=== PATIENT | male | born 1930 | race Caucasian/White ===

== ENCOUNTER 2016-03-19 14:03 | Emergency (ER) | payer OTHER, MEDICARE ==
[2016-03-19 14:11] VITALS: BP 121/101; PULSE 56; RESP 18; TEMP 97.9; O2SAT 94
--- NOTE | 2016-03-19 14:54 | EDPHY ---
H & P Stated Complaint: Fell on buttocks yesterday in bathroom . Time Seen by Provider: 03/19/16 14:15 HPI/ROS: CHIEF COMPLAINT: Lumbar pain after mechanical fall HISTORY OF PRESENT ILLNESS: The patient presents to the ED with complaints of lower lumbar pain after a mechanical fall yesterday. The patient is not anticoagulated. The patient has had some hospitalizations in the past year for a small intracranial hemorrhage while on Plavix and a additional hospital visit for TIA. The patient also experienced a seizure this year and has been taking Depakote. The patient denies any complaints of acute chest pain, shortness of breath, acute headache, no acute numbness, acute weakness or additional complaints. He does have some chronic gait instability which has not worsened. The patient complains of moderate pain in his lower lumbar spine. REVIEW OF SYSTEMS: A comprehensive 10 point review of systems is otherwise negative aside from elements mentioned in the history of present illness. 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 Right knee replacement. - Social History Smoking Status: Never smoked - Physical Exam Exam: General Appearance: Alert, no distress Head: Atraumatic Eyes: Pupils equal, round, reactive ENT, Mouth: No hemotympanum, no oral trauma Neck: Nontender, trachea midline Respiratory: No chest wall tender, subcutaneous air, lungs clear bilaterally Cardiovascular: Regular rate and rhythm Abdomen: Abdomen is soft and nontender, pelvis stable Skin: No lacerations, No abrasion Back: Tenderness to palpation in his lower lumbar spine Extremities: Nontender, full range of motion Neurological: A&Ox3, normal motor function, normal sensory exam Constitutional: Initial Vital Signs Temperature (C) 36.6 C 03/19/16 14:06 Heart Rate 56 L 03/19/16 14:06 Respiratory Rate 18 03/19/16 14:06 Blood Pressure 121/101 H 03/19/16 14:06 O2 Sat (%) 94 03/19/16 14:06 O2 Delivery Mode Room Air Allergies/Adverse Reactions: codeine Allergy (Unverified 05/28/15 20:42) Home Medications: Medication Instructions Recorded Amiloride 05/28/15 Atorvastatin Calcium 05/28/15 Bisoprolol Fumarate 05/28/15 Flomax 0.4 MG (RX) 05/28/15 Inspra 05/28/15 PRINIVIL 05/28/15 Proscar 5 MG (RX) 05/28/15 Medical Decision Making - Diagnostics Imaging: Lumbar Spine, 2 standing views History: Fall yesterday, back pain Comparison: Sagittal reconstructions from abdominal and pelvic CT November Findings: It is difficult to exclude an acute mild compression of T12. There is potentially a noncompressed anterior body cortical fracture of L4. There is increased superior endplate concavity of L2 and L3 since the prior exam. Mild retrolistheses between L1 and L3 and a mild spondylolisthesis at L4-L5 are stable. Degenerative to space narrowing with mild spondylolisthesis of L5-S1 is stable since the prior water systems engineer view. There is chronic atherosclerotic change of the abdominal aorta. Impression: Possibly acute mild body fractures of T12, L2, L3 and L4. ED Course/Re-evaluation: The patient presents to the ED with complaints of low back pain following a mechanical fall yesterday. He is noted to be neurologically intact. X-rays of the lumbar spine demonstrate no evidence of a compression fracture which appears to be unstable would benefit from kyphoplasty. The patient does have mild compression deformities of multiple lumbar vertebral bodies. The patient has been instructed to use Tylenol as needed for pain. The patient should return to the ED for the development of any neurologic symptoms. Differential Diagnosis: Differential diagnosis considered includes lumbar fracture, spinal cord injury, compression fracture Departure - Departure Disposition: Home, Routine, Self-Care Clinical Impression: Low back pain Condition: Good Instructions: Low Back Strain (ED) Additional Instructions: 1. Tylenol as needed for pain. 2. Please return to the emergency department for any numbness, weakness or other acute concerns.
--- NOTE | 2016-03-19 15:32 | DX ---
Lumbar Spine, 2 standing views History: Fall yesterday, back pain Comparison: Sagittal reconstructions from abdominal and pelvic CT December 03, 2014 Findings: It is difficult to exclude an acute mild compression of T12. There is potentially a noncomp ressed anterior body cortical fracture of L4. There is increased superior endplate concavity of L2 an d L3 since the prior exam. Mild retrolistheses between L1 and L3 and a mild spondylolisthesis at L4-L 5 are stable. Degenerative to space narrowing with mild spondylolisthesis of L5-S1 is stable since th e prior decatizer view. There is chronic atherosclerotic change of the abdominal aorta. Impression: Possibly acute mild body fractures of T12, L2, L3 and L4.
== END 2016-03-19 16:00 | disposition home or self-care (01) ==
DX: S39.92XA Unspecified injury of lower back, initial encounter (principal); I10 Essential (primary) hypertension; W18.39XA Other fall on same level, initial encounter

== ENCOUNTER 2016-03-26 12:32 | Inpatient (IN) | payer OTHER, MEDICARE ==
--- NOTE | 2016-03-26 12:52 | EDPHY ---
H & P Time Seen by Provider: 03/26/16 12:52 HPI/ROS: CHIEF COMPLAINT: Fall at home HISTORY OF PRESENT ILLNESS: History from the patient and family. He arrives by EMS after having his 3rd fall in a week. Today at 11:30 a.m. he does not know how it happened. I got several stories including the possibility of fainting, versus being twisted in his underwear. His daughter describes him being increasingly weak for 1 and half years and then worse for the last 2 months. He only complains of a mild headache. Further history is limited by the fact the patient has no recollection of the event of his fall. REVIEW OF SYSTEMS: Eye: no change in vision ENT: no sore throat Cardiac: no chest pain or syncope Pulmonary: no cough or SOB Abdomen: no vomiting, diarrhea, abdominal pain Musculoskeletal: No neck pain and no weakness or numbness in lower extremities , chronic back pain which is unchanged today. Skin: no rash Neuro: Denies visual symptoms but has mild headache. Constitutional: no fever : no urinary symptoms A comprehensive 10 point review of systems is otherwise negative aside from elements mentioned in the history of present illness. PAST MEDICAL HISTORY: Includes TIA, hypertension, diabetes, pelvic fracture, large prostate. Right knee replacement. Social history: Every day drinker, here with daughter and son-in-law. General Appearance: Alert and conversant, cooperative. Eyes: No scleral icterus. Extraocular motion intact, left visual field deficit to confrontation. ENT, Mouth: Normal mucous membranes. Respiratory: Normal respiratory effort, breath sounds equal, lungs are clear to auscultation. Cardiovascular: Regular rate and rhythm. Gastrointestinal: Abdomen is soft and non tender. Neurological: Alert and does not know the year and thinks that it is May. Follows commands but slow to respond. Face symmetric, normal movement and sensation in all extremities, with the exception of possible slight decrease in complaint supervisor strength in the left hand. He can independently lift each leg off the bed. On confrontation of visual curiel he appears to have a left visual field deficit on my examination. Skin: Warm and dry, no rashes. Musculoskeletal: Bilateral 1+ pitting edema with out calf tenderness. No spinal tenderness to palpation. Psychiatric: Not agitated. Emergency Department course/MDM: Patient has neurologic findings that are suggestive of possible stroke but has a last known time that is unknown per both the family and the patient. Thus he is not a candidate for stroke alert or thrombolytics or interventional radiology therapy by our current facility protocol. 1433: Results discussed with daughter at this time, plan for admission. Per Dr. Holder Neurology construction consultant no further imaging at this time, admission for further evaluation. Smoking Status: Never smoked Constitutional: Initial Vital Signs Temperature (C) 37 C 03/26/16 12:38 Heart Rate 57 L 03/26/16 12:38 Respiratory Rate 16 03/26/16 12:38 Blood Pressure 183/104 H 03/26/16 12:38 O2 Sat (%) 92 03/26/16 12:38 O2 Delivery Mode Room Air Allergies/Adverse Reactions: codeine Allergy (Mild, Verified 03/26/16 15:47) Vomiting Home Medications: Medication Instructions Recorded Bisoprolol Fumarate [Zebeta (*)] 5 mg PO DAILY 05/28/15 Eplerenone [Inspra 25 MG (*)] 25 mg PO DAILY 05/28/15 Finasteride [Proscar 5 MG (*)] 5 mg PO DAILY 05/28/15 Lipitor 40 mg (*) 40 mg PO DAILY 05/28/15 Lisinopril [Zestril 40 mg (*)] 40 mg PO DAILY 05/28/15 Tamsulosin HCl [Flomax 0.4 MG (*)] 0.8 mg PO DAILY 05/28/15 Amiloride-Hctz 1.5 - 25 mg PO DAILY 03/26/16 Aspirin EC [Aspirin EC 81 mg (*)] 81 mg PO DAILY 03/26/16 Divalproex ER [Depakote ER 500 MG 500 mg PO HS 03/26/16 (*)] Docusate Sodium [Move It Along] 200 mg PO DAILY 03/26/16 Herbals/Supplements -Info Only 1 ea PO DAILY 03/26/16 Bryan-3 Fatty Acids [Fish Oil 1000 1,000 mg PO DAILY 03/26/16 mg (*)] metFORMIN SR [Glucophage XR 500 mg 500 mg PO DAILY@1800 03/26/16 (*)] Medical Decision Making - Diagnostics EKG Interpretation: 12-lead EKG interpreted by me; official reading is in trace master. My interpretation is sinus rhythm at 59 with right bundle branch block Imaging: Head CT reviewed with Jey at 2:07 p.m. shows white matter disease otherwise negative. Specifically no stroke which would cause visual symptoms and no subdural. CTA reported by Dr. Ferrer at 3:16 p.m. is no large vessel occlusion. Lumbar spine x-ray personally viewed by myself shows no fracture or dislocation or other injury Differential Diagnosis: Differential for multiple falls considered including but not limited to seizure , metabolic, ischemic stroke, subdural, vascular dissection. Consult/Admit Bed Type: [facility] 1428, [facility] 1434 - Data Points Laboratory Results: Laboratory Results 03/26/16 12:55 03/26/16 12:55 03/26/16 03/26/16 13:00 12:55 WBC 5.77 10^3/uL (3.80-9.50) RBC 4.63 10^6/uL (4.40-6.38) Hgb 15.5 g/dL (13.7-17.5) Hct 44.0 % (40.0-51.0) MCV 95.0 fL (81.5-99.8) MCH 33.5 pg (27.9-34.1) MCHC 35.2 g/dL (32.4-36.7) RDW 14.0 % (11.5-15.2) Plt Count 200 10^3/uL (150-400) MPV 10.2 fL (8.7-11.7) Neut % (Auto) 79.9 H % (39.3-74.2) Lymph % (Auto) 10.9 L % (15.0-45.0) Snyder % (Auto) 8.0 % (4.5-13.0) Eos % (Auto) 0.5 L % (0.6-7.6) Baso % (Auto) 0.2 L % (0.3-1.7) Nucleat RBC Rel Count 0.0 % (0.0-0.2) Absolute Neuts (auto) 4.61 10^3/uL (1.70-6.50) Absolute Lymphs (auto) 0.63 L 10^3/uL (1.00-3.00) Absolute Monos (auto) 0.46 10^3/uL (0.30-0.80) Absolute Eos (auto) 0.03 10^3/uL (0.03-0.40) Absolute Basos (auto) 0.01 L 10^3/uL (0.02-0.10) Absolute Nucleated RBC 0.00 10^3/uL (0-0.01) Immature Gran % 0.5 % (0.0-1.1) Immature Gran # 0.03 10^3/uL (0.00-0.10) PT 13.3 SEC (12.0-15.0) INR 1.02 (0.83-1.16) Sodium 143 mEq/L (134-144) Potassium 3.5 mEq/L (3.5-5.2) Chloride 103 mEq/L (97-110) Carbon Dioxide 28 mEq/l (22-31) Anion Gap 12 mEq/L (8-16) BUN 17 mg/dL (7-23) Creatinine 0.8 mg/dL (0.7-1.3) Estimated GFR > 60 Glucose 108 H mg/dL (70-100) Calcium 9.3 mg/dL (8.5-10.4) Troponin I 0.034 ng/mL (0-0.034) Urine Color YELLOW Urine Appearance CLEAR Urine pH 7.0 (5.0-7.5) Ur Specific [place] 1.012 (1.002-1.030) Urine Protein 2+ H (NEGATIVE) Urine Ketones TRACE H (NEGATIVE) Urine Blood 1+ H (NEGATIVE) Urine Nitrate NEGATIVE (NEGATIVE) Urine Bilirubin NEGATIVE (NEGATIVE) Urine Urobilinogen NEGATIVE EU (0.2-1.0) Ur Leukocyte Esterase NEGATIVE (NEGATIVE) Urine RBC 3-5 H /hpf (0-3) Urine WBC 1-3 /hpf (0-3) Ur Epithelial Cells NONE SEEN /lpf (NONE-1+) Hyaline Casts 1-5 /lpf (0-1) Urine Mucus TRACE /lpf (NONE-1+) Ur Culture Indicated? NOT INDICATED (NI) Urine Glucose NEGATIVE (NEGATIVE) Valproic Acid 32.2 L mcg/mL (50.0-150.0) Ethyl Alcohol < 10 mg/dL (0-10) Departure - Departure Disposition: [facility] Clinical Impression: Back pain, Multiple falls Condition: Good
--- NOTE | 2016-03-26 13:09 | CPEKG ---
Heart Rate: 59 RR Interval: 1017 P-R Interval: 176 QRSD Interval: 146 QT Interval: 456 QTC Interval: 452 P Gridley: 50 QRS Gridley: -80 T Wave Gridley: -26 EKG Severity - ABNORMAL ECG - EKG Impression: SINUS RHYTHM EKG Impression: RIGHT BUNDLE BRANCH BLOCK Electronically Signed By: Fred Almonte 26-Mar-2016 13:24:46
[2016-03-26 13:17] LABS: % IMMATURE GRANULYOCYTES 0.5 % (0.0-1.1); ABSOLUTE IMMATURE GRANULOCYTES 0.03 10^3/uL (0.00-0.10); ADD DIFF? NO; ADD MORPH? NO; ADD SCAN? NO; ATYPICAL LYMPHOCYTE FLAG 0 (0-99); FRAGMENT RBC FLAG 0 (0-99); HEMOGLOBIN 15.5 g/dL (13.7-17.5); LEFT SHIFT FLG 0 (0-99); LIPEMIA HEMOLYSIS FLAG 90 (0-99); MEAN CELL HEMOGLOBIN 33.5 pg (27.9-34.1); MEAN CELL HEMOGLOBIN CONCENTR. 35.2 g/dL (32.4-36.7); MEAN PLATELET VOLUME 10.2 fL (8.7-11.7); PLATELET CLUMPS FLAG 10 (0-99); PLATELET COUNT 200 10^3/uL (150-400); RED BLOOD CELL COUNT 4.63 10^6/uL (4.40-6.38)
[2016-03-26 13:21] LABS: COLOR YELLOW; LEUKOCYTE ESTERASE,URINE NEGATIVE (NEGATIVE); NITRITE,URINE NEGATIVE (NEGATIVE)
[2016-03-26 13:25] LABS: INR 1.02 (0.83-1.16); PROTIME(PATIENT) 13.3 SEC (12.0-15.0)
[2016-03-26 13:29] LABS: ANION GAP 12 mEq/L (8-16); CALCIUM 9.3 mg/dL (8.5-10.4); CARBON DIOXIDE 28 mEq/l (22-31); CHLORIDE 103 mEq/L (97-110); CREATININE 0.8 mg/dL (0.7-1.3); ETHANOL SERUM < 10 mg/dL (0-10); GLOMERULAR FILTRATION RATE > 60; GLUCOSE 108 mg/dL (70-100); POTASSIUM 3.5 mEq/L (3.5-5.2); SODIUM 143 mEq/L (134-144)
[2016-03-26 13:31] LABS: MUCUS TRACE /lpf (NONE-1+)
[2016-03-26] MEDS ORDERED: IOPAMIDOL (ISOVUE 370) 75 ML BTL IV ONE (13:34)
[2016-03-26 13:40] LABS: TROPONIN I 0.034 ng/mL (0-0.034)
--- NOTE | 2016-03-26 14:17 | DX ---
CT Head (Without Contrast) March 26, 2016 13:53 Indication: Headache. Left visual field cut. Technique: Standard noncontrast head CT protocol utilizing 5 mm thick collimated slices and field of view of 23 cm. Dose reduction techniques were utilized. Comparison: Head CT dated December 02, 2015 Findings: No acute intracranial hemorrhage. Holland-white interfaces are preserved. No evidence of acute ischemia. Ventriculomegaly and diffuse low-attenuation periventricular white matter disease in the f rontal and parietal occipital lobes are unchanged since November 2015. The paranasal sinuses remain clear. Impression: 1. Negative. No acute intracranial hemorrhage or evidence of cortical ischemia. 2. Atrophy, mild ventriculomegaly, and diffuse white matter disease are unchanged since November 6. Comment: Case was discussed with Dr. Fred Almonte 2:07 p.m.
--- NOTE | 2016-03-26 14:48 | CT ---
CORRECTED ORDER CT Head (Without Contrast) March 26, 2016 13:53 Indication: Headache. Left visual field cut. Technique: Standard noncontrast head CT protocol utilizing 5 mm thick collimated slices and field of view of 23 cm. Dose reduction techniques were utilized. Comparison: Head CT dated December 02, 2015 Findings: No acute intracranial hemorrhage. Holland-white interfaces are preserved. No evidence of acute ischemia. Ventriculomegaly and diffuse low- attenuation periventricular white matter disease in the frontal and parietal occipital lobes are unchanged since November 2015. The paranasal sinuses remain clear. Impression: 1. Negative. No acute intracranial hemorrhage or evidence of cortical ischemia. 2. Atrophy, mild ventriculomegaly, and diffuse white matter disease are unchanged since November 2015. Comment: Case was discussed with Dr. Fred Almonte 2:07 p.m. [facility]
--- NOTE | 2016-03-26 14:52 | DX ---
Lumbar Spine (AP and Lateral) Clinical Indications: Low back pain following a fall in an 85-year-old male. Comparison to lumbar sp inal study March 19, 2016. Findings: An acute fracture is not identified. A mild thoracolumbar scoliotic curvature convex towar ds the left is seen. Multilevel degenerative changes are seen with disk space loss extending from the lower thoracic region throughout the lumbar spine to the lumbosacral junction. There is a minimal an terolisthesis of L4 with respect to L5. Multilevel facet hypertrophic changes are seen. Old fractures are seen involving the right superior and inferior pubic rami. There is elevation of the floor of th e bladder which has contrast from recent CT study. This presumably reflects prostatic enlargement. Impression: 1. Negative for acute fracture. Old pelvic fractures. 2. Prominent multilevel lumbar degenerative changes noted as detailed above. 3. Suspect prostatic enlargement.
--- NOTE | 2016-03-26 15:26 | CT ---
CT Angiography of the Head Clinical Indications: Left-sided visual field cut. R29.818 Neurological changes strongly suggesting i ntracerebral aneurysm. Technique: During automated power injection of 85 mL of Isovue-370, thinly collimated spiral (volume tric) multidetector helical imaging was performed through the head. Independent three-dimensional [employer] workstation was used for additional manipulations of images by the radiologist. Dose reduction techniques were utilized. Findings: The [place] of [place] and its branches are normal. Anterior communicating artery is patent . Neither posterior communicating artery is identified (normal variant). No evidence of aneurysm or v ascular malformation. No occlusions are found. Impression: Normal. CT Angiography of the Neck (With Contrast) Clinical Indications: Left-sided visual field cut. Technique: During IV administration of 85 mL of Isovue-370 intravenously, helical multidetector data acquisition was obtained from the upper thorax cephalad through the skull base. The thinly collimate d data were manipulated in multiple projections on the 3D computer workstation by the radiologist. Do se reduction techniques were utilized. Findings: Mild calcified plaques are found at origins of internal carotid arteries, bilaterally. On the left side, smooth calcified plaque causes 35% stenosis of the internal carotid artery. No ulcerat ions are found. On the right side, calcified plaque causes minimal reduction of internal carotid paluo ry. Both vertebral arteries are open. No evidence of occlusion, hemodynamically significant stenosis or ulceration. Impression: Mild atherosclerosis. Note: All stenoses are calculated using NASCET Criteria. I telephoned results to Dr. Fred Almonte at 1516 hours.
--- NOTE | 2016-03-26 15:26 | CT ---
CT Angiography of the Head Clinical Indications: Left-sided visual field cut. R29.818 Neurological changes strongly suggesting i ntracerebral aneurysm. Technique: During automated power injection of 85 mL of Isovue-370, thinly collimated spiral (volume tric) multidetector helical imaging was performed through the head. Independent three-dimensional [employer] workstation was used for additional manipulations of images by the radiologist. Dose reduction techniques were utilized. Findings: The [place] of [place] and its branches are normal. Anterior communicating artery is patent . Neither posterior communicating artery is identified (normal variant). No evidence of aneurysm or v ascular malformation. No occlusions are found. Impression: Normal. CT Angiography of the Neck (With Contrast) Clinical Indications: Left-sided visual field cut. Technique: During IV administration of 85 mL of Isovue-370 intravenously, helical multidetector data acquisition was obtained from the upper thorax cephalad through the skull base. The thinly collimate d data were manipulated in multiple projections on the 3D computer workstation by the radiologist. Do se reduction techniques were utilized. Findings: Mild calcified plaques are found at origins of internal carotid arteries, bilaterally. On the left side, smooth calcified plaque causes 35% stenosis of the internal carotid artery. No ulcerat ions are found. On the right side, calcified plaque causes minimal reduction of internal carotid paulo ry. Both vertebral arteries are open. No evidence of occlusion, hemodynamically significant stenosis or ulceration. Impression: Mild atherosclerosis. Note: All stenoses are calculated using NASCET Criteria. I telephoned results to Dr. Fred Almonte at 1516 hours.
[2016-03-26] MEDS ORDERED: ONDANSETRON DISINTEGRATING 4 MG TAB PO PRN (15:37)
[2016-03-26] MEDS ORDERED: HYDROCODONE/APAP 5/325 TAB PO PRN (15:37)
[2016-03-26] MEDS ORDERED: ONDANSETRON 4 MG/2 ML VIAL IVP PRN (15:37)
[2016-03-26] MEDS ORDERED: ACETAMINOPHEN 325 MG TAB PO PRN (15:37)
[2016-03-26] MEDS: hydrALAZINE 20 MG/ML VIAL IVP PRN (15:47)
[2016-03-26] MEDS: BISOPROLOL FUMARATE 5 MG TAB PO SCH (16:20)
[2016-03-26] MEDS: LISINOPRIL 40 MG TAB PO SCH (16:23)
--- NOTE | 2016-03-26 16:41 | GHP ---
[f rep st] HISTORY AND PHYSICAL DATE OF ADMISSION: 03/26/2016 CHIEF COMPLAINT: Falls, decreased mental status. HISTORY OF PRESENT ILLNESS: This is an 85-year-old male with a history of hypertension, hyperlipidem ia, previous TIAs whose daughter says has not been doing well for actually the last year and a half, but especially over the last several months. Over the last year and a half, he has had several TIAs. He has also fallen and had some type of bleeding in his head. He has fallen over the last several weeks and then this morning the patient's mental status was decreased. He is not answering questions very readily and is very nonconversive. Looks like he also might have a left neglect. f jeni or chills. No chest pain. No shortness of breath. The patient's daughter states that he has been having worsening back pain in the lumbar area intermit tently for the last several months as well. He also has a shuffling gait and she has been noting gen eralized weakness, starting in his lower extremities and now affecting the upper extremities. He is now having difficulty holding utensils to eat. REVIEW OF SYSTEMS: 10-point review of systems was obtained and was negative. PAST MEDICAL HISTORY: Limited review of systems obtained secondary to patient's decreased conversive ability. Pertinent positives and negative in HPI. PAST MEDICAL HISTORY: 1. Hypertension. 2. Hyperlipidemia. 3. Previous TIAs. 4. Questionable history of a subdural hematoma. 5. BPH. 6. Borderline diabetes. 7. Pelvic fracture. 8. History of cryoablation of cyst on kidney. SOCIAL HISTORY: No smoking. Lives at the [facility] by himself. Moved here from the [place] several yea rs ago. FAMILY HISTORY: Both parents are . PHYSICAL EXAM: VITAL SIGNS: Afebrile. Blood pressures been running 160-225 systolic over 84-115, h eart rate 85, oxygen saturation 95% on room air. GENERAL: The patient is well developed, no apparen t distress. HEENT: Nonicteric sclerae. Extraocular muscles are intact. NECK: Supple. No thyrome rebekah. LUNGS: Good effort. Clear to auscultation bilaterally. CARDIOVASCULAR: Regular rate and rh ythm. No murmurs or gallops. ABDOMEN: Positive bowel sounds. Soft, nontender, nondistended. No h epatosplenomegaly. EXTREMITIES: No clubbing, cyanosis, or edema. SKIN: Without rash. Intact. NE URO: Is alert and answering some questions, but almost appears to be in a daze. His strength is fair ly equal bilaterally with enough encouragement. He does seem to have a left neglect as well. PSYCH: Normal mood. Flat affect. LABS: CBC is normal. Chemistry is normal. Troponin is 0.034. UA: There no convincing evidence of UTI. EKG, personally reviewed and interpreted: He has right bundle branch block, which is old. IMAGING: Lumbar x-ray: No acute fractures. Old pelvic fracture. CT scan of the head shows no intracranial hemorrhage and atrophy. ASSESSMENT: 85-year-old male presenting with increasing falls and weakness. PLAN: 1. Falls, weakness. The patient does have a little bit of left neglect and acute changes in mental status today on top of chronic decline over last several months. We will check an MRI of the brain t o look for any new CVAs. Neurology has been called to further evaluate. There might be also some ty pe of degenerative disease going on as well. 2. Hypertension. The patient did not get this a.m. blood pressure medicines at home. I am still wa iting for his med rec to be completed. Will give some IV hydralazine as needed. 3. Back pain. Lumbar x-ray is negative. We will see how this progresses in the hospital. 4. Hyperlipidemia. 5. BPH. 6. Code status. The patient's daughter thinks he is a full code. /[id number]/MODL
--- NOTE | 2016-03-26 17:31 | DX ---
Portable Chest, Single View March 26, 2016 at 1325 hours Indication: Stroke alert. Left visual field cut and headache. Comparison: Two-view chest dated May 28, 2015. Findings: The lungs are well aerated and clear except for unchanged left basilar atelectasis versus scarring. Heart size within normal limit for portable upright technique. Minimally tortuous atheros clerotic aorta is unchanged. A high right paraspinal soft tissue opacity overlying the medial right clavicular head is more conspicuous since May 2015. Impressions 1. No acute process. 2. Suspect high right paratracheal soft tissue mass. Differential diagnosis includes tortuous great vessel, retrosternal thyroid nodule, right paratracheal lymphadenopathy, and right upper lobe mass. Recommend CT of the chest, with IV contrast, on a nonemergent basis to optimally characterize.
[2016-03-26] MEDS: DIVALPROEX ER 500 MG TAB PO SCH (20:26)
[2016-03-26 23:57] VITALS: RESP 16
[2016-03-27] MEDS: ENOXAPARIN 40 MG/0.4 ML SYR SC SCH (08:51)
[2016-03-27] MEDS: TAMSULOSIN HCL 0.4 MG CAP PO SCH (08:51)
[2016-03-27] MEDS: BISOPROLOL FUMARATE 5 MG TAB PO SCH (08:52)
[2016-03-27] MEDS: LISINOPRIL 40 MG TAB PO SCH (08:52)
[2016-03-27] MEDS: FINASTERIDE 5 MG TAB PO SCH (08:52)
[2016-03-27] MEDS: DOCUSATE SODIUM 100 MG CAP PO SCH (08:52)
[2016-03-27] MEDS: ASPIRIN EC 81 MG TAB PO SCH (08:52)
[2016-03-27] MEDS: ATORVASTATIN CALCIUM 40 MG TAB PO SCH (08:52)
[2016-03-27] MEDS: EPLERENONE 25 MG TAB PO SCH (08:53)
[2016-03-27] MEDS ORDERED: DOCUSATE SODIUM 200 MG PO SCH (09:00)
[2016-03-27] MEDS ORDERED: LIPITOR 40 MG PO SCH (09:00)
--- NOTE | 2016-03-27 10:18 | PDCONSULT ---
[employer] Coordinator Note: HOSPITAL NEUROLOGY CONSULT REQUESTING: Ez Moore MD REASON: falls HPI: This is an 85-year-old right-handed gentleman with a history of hypertension, hyperlipidemia, prior traumatic brain bleed and a history of TIAs who presented to our facility at the behest of his daughter due to multiple falls this past week. Patient resides in independent living facility. He has apparently been having difficulty with ambulation. His daughter describes shuffling of gait. He has had an increasing amount of falls over the past month, but this past week he has had 3 falls, which is extremely high amount for him. He is using a cane and walker for ambulation assistance. He is having increasing difficulty standing from a seated position. His daughter also notes difficulty using utensils, specifically incredibly slowed movements and difficulty with intention type movements. Daughter also notes increasing. The daytime napping. There is no indication of hallucinations or dream enactment behavior. There has been no indication of any tremor or adventitial movements. Symptoms have been slowly progressive over the past 3 months. There is an indication of some cognitive decline superimposed on the above noted problems. There has been no abrupt onset focal weakness. He has not had any sensory disturbance. No vestibular symptoms. No speech or language dysfunction. ROS: As per the HPI, otherwise a complete 12 point ROS was performed and is negative ALLERGIES AND MEDS: As recorded in the EMR - reviewed and reconciled PFSH: As per the intake H&P by Dr. Moore from 03/26/16 EXAM: GEN: WDWN laying in NAD HEENT: NCAT, sclera anicteric, conjunctiva not injected, MMM, oropharynx clear, no scalp tenderness NECK: supple, nontender, no meningismus CV: RRR s1 s2 wo m/r/c/g. Carotid pulses 2+ wo bruit NEURO: MS: awake, alert, oriented to place, situation, not sepcific date. Speech hypophonic and bradykinetic. Bradyphrenia present. No language disturbance. Follows commands. Attends to both sides. Some episodic memory impairment. Flat affect and depressed mood. Good fund of knowledge. 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 CN: pupils 3mm round and reactive. Intolerant of fundoscopy. He has difficulty with VF confrontation, but blinks to threat in all curiel. Primary gaze centered. Square wave jerks present. Markedly reduced vertical gaze. Saccadic intrusion and motor impersistence on smooth pursuit. Facial sensation preserved. Face symmetric. Palatoglossal movements intact. Shoulder shrug and head turn strong. MOTOR: normal bulk/tone. No adventitial movements. Hip flexors are 4+/5, otherwise full power. SENSORY: intact LT/PP throughout. No extinction. Dysgraphesthesia present in both hands. COORD: no ataxia FN/HS. Hemanth bradykinetic legs>arms. REFLEX: plantars down. No clonus. Absent DTRs due to activation. GAIT: he cannot rise without 2-person assist. He has profound shuffling and gait freezing and tendency to autoretropulse. DATA: Labs reviewed in EMR CT head wo reviewed - severe global volume loss and profound periventricular chronic microvascular ischemic changes CTA head/neck - no hemodynamically significant stenosis IMPRESSION AND RECOMMENDATIONS: // FALLS // PARKINSONISM // HTN // HLD Patient presents after multiple falls and is independent living facility. His exam shows profound parkinsonism, namely manifest in the lower extremities. 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 He is going to have an MRI of the brain to further characterize the degree of vascular burden in the white matter and for any other more acute ischemic change. - MRI brain wo - PT/OT evals - optimization of vascular risk factors, namely goal normotension, LDL < 70 ( given history of TIAs), normoglycemia with A1c < 6.5 - cont ASA daily - discussed gait safety with daughter. Needs to use walker at all times and needs to be chaperoned while walking. Recommend transitioning to more supervised living situation. - will need longitudinal neurologic followup after discharge Temp Pulse Resp BP Pulse Ox 36.6 C 56 L 16 183/79 H 94 03/27/16 07:28 03/27/16 08:52 03/27/16 07:28 03/27/16 08:52 03/27/16 08:15 O2 (L/minute) 2 LABORATORY 03/26/16 03/26/16 13:00 12:55 WBC 5.77 10^3/uL (3.80-9.50) RBC 4.63 10^6/uL (4.40-6.38) Hgb 15.5 g/dL (13.7-17.5) Hct 44.0 % (40.0-51.0) MCV 95.0 fL (81.5-99.8) MCH 33.5 pg (27.9-34.1) MCHC 35.2 g/dL (32.4-36.7) RDW 14.0 % (11.5-15.2) Plt Count 200 10^3/uL (150-400) MPV 10.2 fL (8.7-11.7) Neut % (Auto) 79.9 H % (39.3-74.2) Lymph % (Auto) 10.9 L % (15.0-45.0) [place]house % (Auto) 8.0 % (4.5-13.0) Eos % (Auto) 0.5 L % (0.6-7.6) Baso % (Auto) 0.2 L % (0.3-1.7) Nucleat RBC Rel Count 0.0 % (0.0-0.2) Absolute Neuts (auto) 4.61 10^3/uL (1.70-6.50) Absolute Lymphs (auto) 0.63 L 10^3/uL (1.00-3.00) Absolute Monos (auto) 0.46 10^3/uL (0.30-0.80) Absolute Eos (auto) 0.03 10^3/uL (0.03-0.40) Absolute Basos (auto) 0.01 L 10^3/uL (0.02-0.10) Absolute Nucleated RBC 0.00 10^3/uL (0-0.01) Immature Gran % 0.5 % (0.0-1.1) Immature Gran # 0.03 10^3/uL (0.00-0.10) PT 13.3 SEC (12.0-15.0) INR 1.02 (0.83-1.16) Sodium 143 mEq/L (134-144) Potassium 3.5 mEq/L (3.5-5.2) Chloride 103 mEq/L (97-110) Carbon Dioxide 28 mEq/l (22-31) Anion Gap 12 mEq/L (8-16) BUN 17 mg/dL (7-23) Creatinine 0.8 mg/dL (0.7-1.3) Estimated GFR > 60 Glucose 108 H mg/dL (70-100) Calcium 9.3 mg/dL (8.5-10.4) Troponin I 0.034 ng/mL (0-0.034) Urine Color YELLOW Urine Appearance CLEAR Urine pH 7.0 (5.0-7.5) Ur Specific [place] 1.012 (1.002-1.030) Urine Protein 2+ H (NEGATIVE) Urine Ketones TRACE H (NEGATIVE) Urine Blood 1+ H (NEGATIVE) Urine Nitrate NEGATIVE (NEGATIVE) Urine Bilirubin NEGATIVE (NEGATIVE) Urine Urobilinogen NEGATIVE EU (0.2-1.0) Ur Leukocyte Esterase NEGATIVE (NEGATIVE) Urine RBC 3-5 H /hpf (0-3) Urine WBC 1-3 /hpf (0-3) Ur Epithelial Cells NONE SEEN /lpf (NONE-1+) Hyaline Casts 1-5 /lpf (0-1) Urine Mucus TRACE /lpf (NONE-1+) Ur Culture Indicated? NOT INDICATED (NI) Urine Glucose NEGATIVE (NEGATIVE) Valproic Acid 32.2 L mcg/mL (50.0-150.0) Ethyl Alcohol < 10 mg/dL (0-10)
[2016-03-27] MEDS: hydrALAZINE 20 MG/ML VIAL IVP PRN (11:47)
--- NOTE | 2016-03-27 16:43 | HOSPPROG ---
Hospitalist Progress Note Assessment/Plan: # Falls- suspect likely multifactorial- urinalysis and chest x-ray normal- family reporting some focal weakness prior to presentation CT head( personally reviewed and interpreted) atrophy, no acute abnormalities oxygen saturations 94% on room air - MRI brain - neurology consultation - PT OT - Case Management consult and help arranging for higher level of disposition # suspected parkinsonism- neurology following # history of TIA- will initiate treatment for appropriate risk modification if indicated by screening labs # mild cognitive deficit- based on history sounds that this has been gradual over the past many months # Hypertension- continue home meds # hyperlipidemia- checking fasting lipid # diet regular # disposition greater than 2 midnights as the patient requires diagnostic workup for possible stroke I have discussed the case with neurology- obtained brain imaging today Subjective: feels tired Objective: Vital Signs Temp Pulse Resp BP Pulse Ox 36.6 C 64 16 121/59 H 92 03/27/16 16:00 03/27/16 16:00 03/27/16 16:00 03/27/16 16:00 03/27/16 16:00 03/26/16 03/27/16 03/28/16 05:59 05:59 05:59 Intake Total 2075 400 Output Total 875 Balance 1200 400 PT 13.3 SEC (12.0-15.0) 03/26/16 12:55 INR 1.02 (0.83-1.16) 03/26/16 12:55 - Physical Exam Constitutional: chronically ill appearing Eyes: anicteric sclera Ears, Nose, Mouth, Throat: moist mucous membranes Cardiovascular: regular rate and rhythym, systolic murmur Respiratory: no respiratory distress, no rales or rhonchi Gastrointestinal: normoactive bowel sounds, soft, non-tender abdomen Genitourinary: no bladder fullness Skin: warm, normal color Musculoskeletal: No asymmetric calves Neurologic: No AAOx3 Psychiatric: interacting appropriately, not anxious Lymph, Heme, Immunologic: no cervical LAD ICD10 Worksheet Patient Problems: Problems Problem Status Diagnosed Back pain Acute Multiple falls Acute
--- NOTE | 2016-03-27 18:18 | MR ---
MRI of the Brain (Without Contrast) Clinical Indication: 85-year-old with possible CVA, left-sided visual field defect. Comparison: CT head March 26, 2016. Ct angio neck March 26, 2016. Technique: T1-weighted images were acquired axially and sagittally from the foramen magnum to the ve rtex. Axial fast inversion recovery, fast T2-weighted, and diffusion-weighted axial images were obta ined without contrast. Findings: There is moderate diffuse cerebral atrophy. Scattered periventricular and subcortical FLAI R hyperintensities are most likely related to chronic microvascular ischemic gliosis. There is no hyd rocephalus, midline shift, herniation, or epidural/subdural hematomas. No intracranial hemorrhage or masses. There is punctate diffusion restriction in the right occipital lobe (series 5 image 12) suspi cious for acute infarct. There is no appreciable signal abnormality on the ADC map. Cerebellar tonsil s are in normal position. Pituitary gland is normal in size. Normal signal flow-void in the superior sagittal sinus, basilar artery, and bilateral internal carotid arteries indicating patency. Paranasal sinuses and mastoid air cells are clear. There is grade 1 anterolisthesis of C3 on C4. Impression: 1. Punctate right occipital diffusion restriction suspicious for infarct. 2. Atrophy with white matter change most likely related to chronic microvascular ischemic gliosis. 3. Additional findings as above. Findings discussed with Vivi the patient's nurse today at 1813 hours.
[2016-03-27] MEDS: DIVALPROEX ER 500 MG TAB PO SCH (20:46)
[2016-03-28 06:25] LABS: CHOLESTEROL 139 mg/dL (140-220); CHOLESTEROL/HDL RATIO 2.48 RATIO (1.00-4.97); HIGH DENSITY LIPOPROTEIN 56 mg/dL (40-65); LDL/HDL RATIO 1.23 RATIO (1.00-3.64); LOW DENSITY LIPOPROTEIN 69 mg/dL (80-100); NON-HIGH DENSITY LIPOPROTEIN 83 mg/dL (90-129); TRIGLYCERIDE 74 mg/dL (40-150); VERY LOW DENSITY LIPOPROTEINS 14 mg/dL (8-25)
[2016-03-28] MEDS: ENOXAPARIN 40 MG/0.4 ML SYR SC SCH (11:12)
[2016-03-28] MEDS: FINASTERIDE 5 MG TAB PO SCH (11:13)
[2016-03-28] MEDS: EPLERENONE 25 MG TAB PO SCH (11:13)
[2016-03-28] MEDS: LISINOPRIL 40 MG TAB PO SCH (11:13)
[2016-03-28] MEDS: TAMSULOSIN HCL 0.4 MG CAP PO SCH (11:13)
[2016-03-28] MEDS: BISOPROLOL FUMARATE 5 MG TAB PO SCH (11:13)
[2016-03-28] MEDS: ASPIRIN EC 81 MG TAB PO SCH (11:13)
[2016-03-28] MEDS: DOCUSATE SODIUM 100 MG CAP PO SCH (11:13)
[2016-03-28] MEDS: ATORVASTATIN CALCIUM 40 MG TAB PO SCH (11:13)
--- NOTE | 2016-03-28 11:35 | NEUROPROG ---
Assessment: BACKGROUND: This is an 85-year-old right-handed gentleman with a history of hypertension, hyperlipidemia, prior traumatic brain bleed and a history of TIAs who presented to our facility at the behest of his daughter due to multiple falls this past week. Patient resides in independent living facility. He has apparently been having difficulty with ambulation. His daughter describes shuffling of gait. He has had an increasing amount of falls over the past month, but this past week he has had 3 falls, which is extremely high amount for him. He is using a cane and walker for ambulation assistance. He is having increasing difficulty standing from a seated position. His daughter also notes difficulty using utensils, specifically incredibly slowed movements and difficulty with intention type movements. Daughter also notes increasing. The daytime napping. There is no indication of hallucinations or dream enactment behavior. There has been no indication of any tremor or adventitial movements. Symptoms have been slowly progressive over the past 3 months. There is an indication of some cognitive decline superimposed on the above noted problems. There has been no abrupt onset focal weakness. He has not had any sensory disturbance. No vestibular symptoms. No speech or language dysfunction. INTERVAL HISTORY: 03/28: No events overnight. No new complaints. Eager for rehab. Daughter at bedside - questions answered at length. EXAM: He is still parkinsonian moreso in the lower extremities. Exam is unchanged from initial encounter. DATA: MRI brain wo reviewed - severe global atrophy with ex vacuo dilatation of the ventricles. Confluent periventricular chonic microvascular ischemic changes and scattered subcortical microvascular ischemic changes, more evident in the frontal subcortical white matter. A single punctate focus of increased DWI signal in the posterior occipital cortex without any associated ADC/T2/FLAIR changes likely representing artifact or T2 shine-through. No evidence of acute ischemia. 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 MRI shows significant frontal subcortical microvascular ischemic burden, which would be culprit in lower body parkinsonism. Given the parkinsonism and dyspraxia in the upper extremities as well as profound atrophy on MRI, there is also likely a degenerative component at play, as well. Will need routine surveillance and optimization of conventional vascular risk factors through PCP. Cont ASA 81mg daily. I recommend escalating his level of supervision in his living environment given high risk of falls. He should undergo rehab with PT for gait training and safety. Advised to use his walker at all times. Cont with delirium precautions. I will see him in followup in 4-6 weeks for consideration of Sinemet challenge. He is OK for discharge from a neurologic perspective. 35 mins in direct patient care activities on the floor with more than 50% spent in counseling and coordination of care and discussion with patient and daughter. Objective: Vital Signs Temp Pulse Resp BP Pulse Ox 36.5 C 57 L 16 161/88 H 98 03/28/16 08:00 03/28/16 11:13 03/28/16 08:00 03/28/16 11:13 03/28/16 08:00 03/27/16 03/28/16 03/29/16 05:59 05:59 05:59 Intake Total 2075 1050 Output Total 875 200 Balance 1200 850 PT 13.3 SEC (12.0-15.0) 03/26/16 12:55 INR 1.02 (0.83-1.16) 03/26/16 12:55 Allergies/Adverse Reactions: codeine Allergy (Mild, Verified 03/26/16 15:47) Vomiting
--- NOTE | 2016-03-28 14:00 | HOSPPROG ---
Hospitalist Progress Note Assessment/Plan: # Falls- suspect likely multifactorial- urinalysis and chest x-ray normal- family reporting some focal weakness prior to presentation MRI head (personally reviewed and interpreted) atrophy-punctate right occipital infarct oxygen saturations 94% on room air - neurology following - PT OT - Case area forester for placement # suspected parkinsonism- neurology plan for sinemet challenge as outpt # history of TIA- LDL 69 - cont ASA # mild cognitive deficit- based on history sounds that this has been gradual over the past many months # Hypertension- continue home meds # hyperlipidemia- LDL 69 # diet regular # disposition -greater than 2 midnights working on placement actively I have discussed the case with RN - encouraging ambulation and PO intake Subjective: feeling better Objective: Vital Signs Temp Pulse Resp BP Pulse Ox 36.4 C 61 16 156/88 H 95 03/28/16 11:57 03/28/16 11:57 03/28/16 11:57 03/28/16 11:57 03/28/16 11:57 03/27/16 03/28/16 03/29/16 05:59 05:59 05:59 Intake Total 2075 1050 Output Total 875 200 Balance 1200 850 PT 13.3 SEC (12.0-15.0) 03/26/16 12:55 INR 1.02 (0.83-1.16) 03/26/16 12:55 - Physical Exam Constitutional: appears nourished Eyes: anicteric sclera Ears, Nose, Mouth, Throat: moist mucous membranes Cardiovascular: regular rate and rhythym, systolic murmur Respiratory: no respiratory distress, no rales or rhonchi Gastrointestinal: normoactive bowel sounds, soft, non-tender abdomen Genitourinary: no bladder fullness Skin: warm, normal color Musculoskeletal: No asymmetric calves Neurologic: AAOx3, other (markedly improved today) Psychiatric: interacting appropriately, not anxious Lymph, Heme, Immunologic: no cervical LAD ICD10 Worksheet Patient Problems: Problems Problem Status Diagnosed Back pain Acute Multiple falls Acute
[2016-03-28] MEDS ORDERED: RED WINE 120 ML BOTTLE PO PRN (14:01)
[2016-03-28] MEDS: DIVALPROEX ER 500 MG TAB PO SCH (20:06)
[2016-03-29 07:22] VITALS: BP 155/74; PULSE 55; TEMP 98.3; O2SAT 92
[2016-03-29] MEDS: ATORVASTATIN CALCIUM 40 MG TAB PO SCH (10:26)
[2016-03-29] MEDS: EPLERENONE 25 MG TAB PO SCH (10:26)
[2016-03-29] MEDS: TAMSULOSIN HCL 0.4 MG CAP PO SCH (10:27)
[2016-03-29] MEDS: DOCUSATE SODIUM 100 MG CAP PO SCH (10:27)
[2016-03-29] MEDS: BISOPROLOL FUMARATE 5 MG TAB PO SCH (10:28)
[2016-03-29] MEDS: ASPIRIN EC 81 MG TAB PO SCH (10:29)
[2016-03-29] MEDS: ENOXAPARIN 40 MG/0.4 ML SYR SC SCH (10:29)
[2016-03-29] MEDS: LISINOPRIL 40 MG TAB PO SCH (10:29)
[2016-03-29] MEDS: FINASTERIDE 5 MG TAB PO SCH (10:29)
--- NOTE | 2016-03-29 12:42 | PDIAF ---
- Diagnosis Diagnosis: parkinsonism Code Status: Full Code - Medication Management Discharge Medications: Medications to Continue on Transfer Bisoprolol Fumarate [Zebeta (*)] 5 mg PO DAILY 05/28/15 [Last Taken Unknown] Eplerenone [Inspra 25 MG (*)] 25 mg PO DAILY 05/28/15 [Last Taken Unknown] Finasteride [Proscar 5 MG (*)] 5 mg PO DAILY 05/28/15 [Last Taken Unknown] Lipitor 40 mg (*) 40 mg PO DAILY 05/28/15 [Last Taken Unknown] Lisinopril [Zestril 40 mg (*)] 40 mg PO DAILY 05/28/15 [Last Taken Unknown] Tamsulosin HCl [Flomax 0.4 MG (*)] 0.8 mg PO DAILY 05/28/15 [Last Taken Unknown] Amiloride-Hctz 1.5 - 25 mg PO DAILY 03/26/16 [Last Taken Unknown] Aspirin EC [Aspirin EC 81 mg (*)] 81 mg PO DAILY 03/26/16 [Last Taken Unknown] Divalproex ER [Depakote ER 500 MG (*)] 500 mg PO HS 03/26/16 [Last Taken ] Docusate Sodium [Move It Along] 200 mg PO DAILY 03/26/16 [Last Taken Unknown] Herbals/Supplements -Info Only 1 ea PO DAILY 03/26/16 [Last Taken Unknown] [place]hel-3 Fatty Acids [Fish Oil 1000 mg (*)] 1,000 mg PO DAILY 03/26/16 [Last Taken Unknown] metFORMIN SR [Glucophage XR 500 mg (*)] 500 mg PO DAILY@1800 03/26/16 [Last Taken Unknown] Discharge Medications: Refer to the Discharge Home Medication list for PRN reason. - Orders Services needed: Registered Nurse, Physical Therapy, Occupational Therapy, Speech Language Pathologist Diet Recommendation: no restrictions on diet Diet Texture: Regular Texture Diet - Follow Up Care Current Providers and Referrals: Doc Moseley MD [Primary Care Provider] - As per Instructions Reuben Holder DO [Doctor of Osteopathy] -
--- NOTE | 2016-03-29 15:36 | GDS ---
[f rep st] DISCHARGE SUMMARY DISCHARGE DIAGNOSES: 1. 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 2. Frequent falls suspect secondary to parkinsonism. 3. Hypertension. 4. Hyperlipidemia. 5. Mild cognitive deficit. 6. History of transient ischemic attack. HISTORY OF PRESENT ILLNESS: An 85-year-old male who presents with recurrent falls. For details of gregorio contreras's initial presentation, please see the history and physical dated 03/26/2016. CONSULTATIVE SERVICES: Include Neurology, Dr. Holder. PROCEDURES: 1. On 03/26/2016, patient had a CTA of the head and neck which showed no flow-limiting stenoses. 2. Noncontrast CT of the head on 03/26/2016 showed no acute abnormalities. 3. Brain MRI on 03/27/2016 showed a punctate right occipital diffusion restriction suspicious for sm all infarct; otherwise atrophy. HOSPITAL COURSE BY ISSUE: 1. Recurrent falls. Per the patient and family's report, have been progressive, difficulty with amb ulation and balance, over the course of the preceding months. After evaluation and imaging, Neurolog y was most convinced that this is likely vascular parkinsonism with a degenerative component. Leslie cox had his cerebrovascular risk factors optimized and will be discharged on medications only, includin g 81 mg of aspirin daily, and atorvastatin. He is to follow in the outpatient Neurologic Clinic for a Sinemet trial post-disposition. 2. Hypertension. Patient was continued on his multi-drug regimen with good control. 3. Mild cognitive deficit. This seem to fluctuate during his hospital course. It was recommended t hat the patient be discharged to a higher level of care. He has been arranged with [facility] or a higher level of support. 4. BPH. He will continue on his multi-drug regimen. MEDICATIONS AT TIME OF DISPOSITION: Please reference medication reconciliation printed on 03/29/2016 . FOLLOWUP APPOINTMENTS: 1. With Dr. Holder for a Sinemet trial post-disposition. 2. With his primary care provider as needed for ongoing management of his medical comorbidities. DISPOSITION: The patient will be discharged to SNF with orders for nursing, PT, OT. TIME SPENT: I spent greater than 30 minutes in the planning and coordination of this discharge. /[id number]/MODL
== END 2016-03-29 15:15 | DRG 57 ==
LOC: EDUNIT# → F3N 15:27
PROVIDERS: ADMIT Internal Medicine; ATTEND Hospitalist
DX: G21.4 Vascular parkinsonism (principal); R41.9 Unspecified symptoms and signs involving cognitive functions and awareness; H53.40 Unspecified visual field defects; R29.6 Repeated falls; I10 Essential (primary) hypertension; E78.5 Hyperlipidemia, unspecified
CPT/HCPCS: 97116-GP; 97162-GP; 97166-GO; 97530-GP; 97535-GO; G0480; G8978-GP-CK; G8978-GP-CL; G8979-GP-CI; G8980-GP-CK; G8987-GO-CM; G8988-GO-CK; J0360; J1650

== ENCOUNTER 2016-04-24 16:44 | Emergency (ER) | payer OTHER, MEDICARE ==
[2016-04-24 16:56] VITALS: TEMP 97.9
--- NOTE | 2016-04-24 17:24 | CPEKG ---
Heart Rate: 48 RR Interval: 1250 P-R Interval: 172 QRSD Interval: 150 QT Interval: 468 QTC Interval: 419 P Rowley: 23 QRS Rowley: -81 T Wave Rowley: -34 EKG Severity - ABNORMAL ECG - EKG Impression: SINUS BRADYCARDIA EKG Impression: RIGHT BUNDLE BRANCH BLOCK EKG Impression: LAFB EKG Impression: Inferolateral T wave inversions, cannot rule out ischemia Electronically Signed By: Bunny Greenfield 27-Apr-2016 07:26:44
--- NOTE | 2016-04-24 17:28 | EDPHY ---
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 Right knee replacement. HX TIA'S, HEAD INJURY W/ FALL 07/2015 - Social History Smoking Status: Never smoked Constitutional: Initial Vital Signs Temperature (C) 36.6 C 04/24/16 16:52 Heart Rate 54 L 04/24/16 16:52 Respiratory Rate 18 04/24/16 16:52 Blood Pressure 184/80 H 04/24/16 16:52 O2 Sat (%) 99 04/24/16 16:52 O2 Delivery Mode Room Air Allergies/Adverse Reactions: codeine Allergy (Mild, Verified 04/24/16 16:49) Vomiting Home Medications: Medication Instructions Recorded Bisoprolol Fumarate [Zebeta (*)] 5 mg PO DAILY 05/28/15 Eplerenone [Inspra 25 MG (*)] 25 mg PO DAILY 05/28/15 Finasteride [Proscar 5 MG (*)] 5 mg PO DAILY 05/28/15 Lipitor 40 mg (*) 40 mg PO DAILY 05/28/15 Lisinopril [Zestril 40 mg (*)] 40 mg PO DAILY 05/28/15 Tamsulosin HCl [Flomax 0.4 MG (*)] 0.8 mg PO DAILY 05/28/15 Amiloride-Hctz 1.5 - 25 mg PO DAILY 03/26/16 Aspirin EC [Aspirin EC 81 mg (*)] 81 mg PO DAILY 03/26/16 Divalproex ER [Depakote ER 500 MG 500 mg PO HS 03/26/16 (*)] Docusate Sodium [Move It Along] 200 mg PO DAILY 03/26/16 Herbals/Supplements -Info Only 1 ea PO DAILY 03/26/16 [place]-3 Fatty Acids [Fish Oil 1000 1,000 mg PO DAILY 03/26/16 mg (*)] Atorvastatin Calcium 04/24/16 Medical Decision Making ED Course/Re-evaluation: CHIEF COMPLAINT: Sent in for high blood pressure HISTORY OF PRESENT ILLNESS: 85-year-old gentleman who sees Dr. Doc Moseley. He was at home today and his blood pressure was slightly elevated although he doesn't remember the number. He called Dr. Moseley's office and they suggested that he come to the emergency department. He denies any symptoms whatsoever. He has had some TIAs and strokes in the past and he is accompanied by his daughter at bedside. She says that earlier in the day he seems slightly confused but ultimately seems completely normal and back to baseline since she has been here with him. Patient corroborates the story and says he feels completely normal. REVIEW OF SYSTEMS: A 10 point review of systems was performed and is negative with the exception of the elements mentioned in the history of present illness. PHYSICAL EXAM: HR, BP, O2 Sat, RR. Temp noted General Appearance: Alert, well hydrated, appropriate, and non-toxic appearing. Head: Atraumatic without scalp tenderness or obvious injury Eyes: Pupils equal, round, reactive to light and accommodation, EOMI, no trauma , no injection. Ears: Clear bilaterally, no perforation, normal landmarks Nose: Atraumatic, no rhinorrhea, clear. Throat: There is no erythema or exudates, no lesions, normal tonsils, mucus membranes moist. Neck: Supple, 2+ carotid upstroke, nontender, no lymphadenopathy. Respiratory: No retractions, no distress, no wheezes, and no accessory muscle use. Lungs are clear to auscultation bilaterally. Cardiovascular: Regular rate and rhythm, no murmurs, rubs, or gallops. Bilateral carotid, radial, dorsalis pedis, and posterior tibial pulses intact. Good capillary refill all extremities. Gastrointestinal: Abdomen is soft, nontender, non-distended, no masses, no rebound, no guarding, no peritoneal signs. Musculoskeletal: Normal active ROM of all extremities, atraumatic. Neurological: Alert, appropriate, and interactive. The patient has normal DTRs and non-focal cranial nerves, motor, sensory, and cerebellar exam. Skin: No rashes, good turgor, no nodules on palpation. Past medical history: Hypertension, benign prostatic hypertrophy, TIAs Past surgical history: Noncontributory Family history: Noncontributory Social history: Retired, does not use tobacco, does not abuse alcohol, lives independently DIAGNOSTICS/PROCEDURES/CRITICAL CARE TIME: The 12 lead EKG was interpreted by myself. See hard copy and/or "tracemaster" electronic copy for interpretation. Sinus bradycardia at 48-50. The old EKG from March 26 about a month ago also shows the same sinus bradycardia although the rate is 58. There is a right bundle pattern on both EKGs. In May of 2015 he had exactly the same EKG and the same rate of 49 sinus bradycardic DIFFERENTIAL DIAGNOSIS: Hypertension includes but is not limited to improper medication, hypertensive urgency, hypertensive emergency, illness MEDICAL DECISION MAKING: This patient's blood pressure here is 175/65. He is completely asymptomatic. His EKG shows a sinus bradycardia which is similar to prior EKGs. Laboratory studies are pending to make sure there is no evidence of laboratory abnormalities but I am not picking up any end organ damage. Labs are unremarkable. He has remained asymptomatic with BP currently at 173/ 82. No evidence of hypertension urgency or emergency. He will be discharged home with referral to his PCP for follow up. Return precautions given. he is comfortable with this plan. - Data Points Laboratory Results: Laboratory Results 04/24/16 17:35 04/24/16 17:35 04/24/16 17:35 WBC 3.86 10^3/uL (3.80-9.50) RBC 4.05 L 10^6/uL (4.40-6.38) Hgb 13.8 g/dL (13.7-17.5) Hct 40.3 % (40.0-51.0) MCV 99.5 fL (81.5-99.8) MCH 34.1 pg (27.9-34.1) MCHC 34.2 g/dL (32.4-36.7) RDW 13.8 % (11.5-15.2) Plt Count 148 L 10^3/uL (150-400) MPV 10.0 fL (8.7-11.7) Neut % (Auto) 60.6 % (39.3-74.2) Lymph % (Auto) 24.6 % (15.0-45.0) [place] % (Auto) 11.7 % (4.5-13.0) Eos % (Auto) 2.3 % (0.6-7.6) Baso % (Auto) 0.5 % (0.3-1.7) Nucleat RBC Rel Count 0.0 % (0.0-0.2) Absolute Neuts (auto) 2.34 10^3/uL (1.70-6.50) Absolute Lymphs (auto) 0.95 L 10^3/uL (1.00-3.00) Absolute Monos (auto) 0.45 10^3/uL (0.30-0.80) Absolute Eos (auto) 0.09 10^3/uL (0.03-0.40) Absolute Basos (auto) 0.02 10^3/uL (0.02-0.10) Absolute Nucleated RBC 0.00 10^3/uL (0-0.01) Immature Gran % 0.3 % (0.0-1.1) Immature Gran # 0.01 10^3/uL (0.00-0.10) Sodium 139 mEq/L (134-144) Potassium 4.3 mEq/L (3.5-5.2) Chloride 102 mEq/L (97-110) Carbon Dioxide 28 mEq/l (22-31) Anion Gap 9 mEq/L (8-16) BUN 17 mg/dL (7-23) Creatinine 0.9 mg/dL (0.7-1.3) Estimated GFR > 60 Glucose 86 mg/dL (70-100) Calcium 8.9 mg/dL (8.5-10.4) Magnesium 1.8 mg/dL (1.6-2.3) Departure - Departure Disposition: Home, Routine, Self-Care Clinical Impression: Transient hypertension Condition: Good Instructions: Hypertension (ED) Additional Instructions: Follow up with Dr. Moseley this week. Referrals: Doc Moseley MD [Primary Care Provider] - As per Instructions
[2016-04-24 18:26] LABS: % IMMATURE GRANULYOCYTES 0.3 % (0.0-1.1); ABSOLUTE IMMATURE GRANULOCYTES 0.01 10^3/uL (0.00-0.10); ADD DIFF? NO; ADD MORPH? NO; ADD SCAN? NO; ATYPICAL LYMPHOCYTE FLAG 0 (0-99); FRAGMENT RBC FLAG 0 (0-99); HEMATOCRIT 40.3 % (40.0-51.0); HEMOGLOBIN 13.8 g/dL (13.7-17.5); LEFT SHIFT FLG 0 (0-99); LIPEMIA HEMOLYSIS FLAG 90 (0-99); MEAN CELL HEMOGLOBIN 34.1 pg (27.9-34.1); MEAN CELL HEMOGLOBIN CONCENTR. 34.2 g/dL (32.4-36.7); MEAN CELL VOLUME 99.5 fL (81.5-99.8); PLATELET CLUMPS FLAG 0 (0-99); PLATELET COUNT 148 10^3/uL (150-400); RED BLOOD CELL COUNT 4.05 10^6/uL (4.40-6.38); RED CELL DISTRIBUTION WIDTH 13.8 % (11.5-15.2)
[2016-04-24 18:30] VITALS: BP 177/84; PULSE 47; RESP 15; O2SAT 93
[2016-04-24 18:33] LABS: ANION GAP 9 mEq/L (8-16); CALCIUM 8.9 mg/dL (8.5-10.4); CARBON DIOXIDE 28 mEq/l (22-31); CHLORIDE 102 mEq/L (97-110); CREATININE 0.9 mg/dL (0.7-1.3); GLOMERULAR FILTRATION RATE > 60; GLUCOSE 86 mg/dL (70-100); MAGNESIUM 1.8 mg/dL (1.6-2.3); POTASSIUM 4.3 mEq/L (3.5-5.2); SODIUM 139 mEq/L (134-144)
== END 2016-04-24 19:05 | disposition home or self-care (01) ==
DX: I10 Essential (primary) hypertension (principal); E11.9 Type 2 diabetes mellitus without complications; Z86.73 Personal history of transient ischemic attack (TIA), and cerebral infarction without residual deficits; Z79.82 Long term (current) use of aspirin

== ENCOUNTER 2016-05-04 18:59 | Inpatient (IN) | payer OTHER, MEDICARE ==
[2016-05-04] MEDS ORDERED: ONDANSETRON 4 MG/2 ML VIAL IVP ONE (19:04)
[2016-05-04] MEDS ORDERED: LORazepam 2 MG/ML INJ ONE (19:10)
[2016-05-04] MEDS ORDERED: LORazepam 2 MG/ML INJ IVP ONE ×3 (19:11→20:37)
[2016-05-04 19:16] LABS: % IMMATURE GRANULYOCYTES 0.5 % (0.0-1.1); ABSOLUTE IMMATURE GRANULOCYTES 0.03 10^3/uL (0.00-0.10); ADD DIFF? NO; ADD MORPH? NO; ADD SCAN? NO; ATYPICAL LYMPHOCYTE FLAG 0 (0-99); FRAGMENT RBC FLAG 0 (0-99); HEMATOCRIT 44.1 % (40.0-51.0); HEMOGLOBIN 15.4 g/dL (13.7-17.5); LEFT SHIFT FLG 0 (0-99); LIPEMIA HEMOLYSIS FLAG 90 (0-99); MEAN CELL HEMOGLOBIN 33.8 pg (27.9-34.1); MEAN CELL HEMOGLOBIN CONCENTR. 34.9 g/dL (32.4-36.7); MEAN CELL VOLUME 96.7 fL (81.5-99.8); MEAN PLATELET VOLUME 10.5 fL (8.7-11.7); PLATELET CLUMPS FLAG 0 (0-99); PLATELET COUNT 200 10^3/uL (150-400); RED BLOOD CELL COUNT 4.56 10^6/uL (4.40-6.38); RED CELL DISTRIBUTION WIDTH 13.6 % (11.5-15.2)
--- NOTE | 2016-05-04 19:16 | CPEKG ---
Heart Rate: 114 RR Interval: 526 QRSD Interval: 158 QT Interval: 400 QTC Interval: 552 QRS [place]: -81 T Wave [place]: 140 EKG Severity - ABNORMAL ECG - EKG Impression: RBBB AND LAFB EKG Impression: SIMILAR TO PREVIOUS Electronically Signed By: Reuben Porras 04-May-2016 19:24:40
--- NOTE | 2016-05-04 19:17 | EDPHY ---
H & P Time Seen by Provider: 05/04/16 19:04 HPI/ROS: CHIEF COMPLAINT: Syncope HISTORY OF PRESENT ILLNESS: The patient is an 85-year-old man who comes to the emergency department by EMS after a syncopal event with decreased consciousness. He sat down with his friends at the residential bar and had a sip of wine when he suddenly slumped over in the chair and was unresponsive. EMS was called. They found him bradycardic in the 40s and 50s and minimally responsive. His blood pressure was normal. They started bagging him for respirations. His medical history includes hypertension the and atraumatic intracranial hemorrhage he 8 months ago. He takes Plavix but no other blood thinners. He has a daughter states that he is on valproic acid but it is not listed on his medication list. He has been taking this since his head injury. The witnesses did not describe any seizure-like activity today. REVIEW OF SYSTEMS: Unable to obtain secondary to condition EXAM: GENERAL: Attendant, moving all extremities spontaneously, not cooperative with examination or questioning HEAD: Atraumatic, normocephalic. EYES: Pupils equal round and reactive to light, extraocular movements intact, sclera anicteric, conjunctiva are normal. ENT: TMs normal, nares patent, oropharynx clear without exudates. Moist mucous membranes. NECK: Normal range of motion, supple without lymphadenopathy or JVD. LUNGS: Breath sounds clear to auscultation bilaterally and equal. No wheezes rales or rhonchi. HEART: Regular rate and rhythm without murmurs, bradycardic ABDOMEN: Soft, nontender, normoactive bowel sounds. No guarding, no rebound. No masses appreciated. BACK: No CVA tenderness, no spinal tenderness, step-offs or deformities EXTREMITIES: Normal range of motion, no pitting or edema. No clubbing or cyanosis. NEUROLOGICAL: Cranial nerves II through XII grossly intact. Will occasionally speak normally but does not follow commands or answer questions. Speech is not slurred , 5/5 strength, normal movement in all extremities, normal sensation PSYCH: Unable to assess SKIN: Warm, dry, normal turgor, no visible rashes or lesions. 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 Right knee replacement. HX TIA'S, HEAD INJURY with Small to intracranial hemorrhage FALL 07/2015 - Family History Significant Family History: Hypertension - Social History Smoking Status: Never smoked Alcohol Use: Occasionally Drug Use: None Constitutional: Initial Vital Signs O2 Sat (%) 96 05/04/16 19:00 O2 Delivery Mode Room Air O2 (L/minute) 3 Allergies/Adverse Reactions: codeine Allergy (Mild, Verified 04/24/16 16:49) Vomiting Home Medications: Medication Instructions Recorded Bisoprolol Fumarate [Zebeta (*)] 5 mg PO DAILY 05/28/15 Eplerenone [Inspra 25 MG (*)] 25 mg PO DAILY 05/28/15 Finasteride [Proscar 5 MG (*)] 5 mg PO DAILY 05/28/15 Lipitor 40 mg (*) 40 mg PO DAILY 05/28/15 Lisinopril [Zestril 40 mg (*)] 40 mg PO DAILY 05/28/15 Tamsulosin HCl [Flomax 0.4 MG (*)] 0.8 mg PO DAILY 05/28/15 Amiloride-Hctz 1.5 - 25 mg PO DAILY 03/26/16 Aspirin EC [Aspirin EC 81 mg (*)] 81 mg PO DAILY 03/26/16 Divalproex ER [Depakote ER 500 MG 500 mg PO HS 03/26/16 (*)] Docusate Sodium [Move It Along] 200 mg PO DAILY 03/26/16 Herbals/Supplements -Info Only 1 ea PO DAILY 03/26/16 [place]-3 Fatty Acids [Fish Oil 1000 1,000 mg PO DAILY 03/26/16 mg (*)] Atorvastatin Calcium 04/24/16 Medical Decision Making - Diagnostics EKG Interpretation: An EKG obtained and was read and documented in trace view. Please see trace view for full reading and report. Sinus rhythm right bundle branch block, unchanged from previous A repeat EKG obtained and was read and documented in trace view. Please see trace view for full reading and report. Sinus rhythm with right bundle branch block, similar to previous Procedures: Procedure: Trauma ultrasound. Limited echocardiogram for pericardial effusion. Limited bedside ultrasound was performed and interpreted by myself but unfortunately limited by gas to the point that cannot visual visualize the heart Limited abdominal ultrasound for blunt abdominal trauma. 1) The right upper quadrant was visualized and was found to be negative for intraperitoneal fluid. 2) The left upper quadrant was visualized and found to be negative for intraperitoneal fluid. The study was felt to be negative for free intraperitoneal fluid. Limited pelvic ultrasound was conducted for abdominal trauma. The bladder was visualized and did not reveal an anechoic area outside of the adjacent urinary bladder. The study was felt to be negative for free intraperitoneal fluid. Procedure: Lumbar puncture. Indication: Altered mental status After verbal informed consent from patient's daughterexplaining the risks including infection, bleeding, and neurologic damage, a lumbar puncture was performed after the patient was prepped and draped in the usual fashion. The back was anesthetized with 1% lidocaine. Approximately 4 cc of clear fluid was obtained. Opening pressure was not obtained. There were no complications. The procedure was performed by myself. ED Course/Re-evaluation: The patient's daughter is here with a new medication list. He is not currently taking Plavix. It does have a valproic acid listed. Also according to the patient's past medical records he was admitted in March of this year after a fall. He does have a history of previous TIAs as well as a questionable subdural hematoma this summer. Also hypertension, diabetes and Parkinson's disease making him a fall risk. He used to take Ambien but no longer does because of a is a fall risk according to his daughter. 8:00 p.m. I discussed the case with Dr. Otto James who will admit to the medical service. He requested we perform lumbar puncture. Discussed this with the patient's daughter consented. I will give the patient another dose of Ativan prior to procedure. Critical Care Time: I spent a total of 45 minutes of critical care time in obtaining history, performing a physical exam, bedside monitoring of interventions, collecting and interpreting tests and discussion with consultants but not including time spent performing procedures . - Data Points Laboratory Results: Laboratory Results 05/04/16 19:10 05/04/16 19:10 05/04/16 05/04/16 05/04/16 20:00 19:54 19:10 WBC RBC Hgb POC Hgb Hct POC Hct MCV MCH MCHC RDW Plt Count MPV Neut % (Auto) Lymph % (Auto) [place] % (Auto) Eos % (Auto) Baso % (Auto) Nucleat RBC Rel Count Absolute Neuts (auto) Absolute Lymphs (auto) Absolute Monos (auto) Absolute Eos (auto) Absolute Basos (auto) Absolute Nucleated RBC Immature Gran % Immature Gran # PT INR VBG Lactic Acid 2.4 mmol/L H mmol/L (0.7-2.1) POC Sodium Sodium POC Potassium Potassium POC Chloride Chloride Carbon Dioxide Anion Gap POC BUN BUN Creatinine POC Creatinine Estimated GFR Glucose POC Glucose Calcium Total Bilirubin 1.2 mg/dL mg/dL (0.1-1.4) Troponin I Urine Opiates Screen NEGATIVE (NEGATIVE) Urine Barbiturates NEGATIVE (NEGATIVE) Valproic Acid 22.5 mcg/mL L mcg/mL (50.0-150.0) Ur Phencyclidine Scrn NEGATIVE (NEGATIVE) Ur Amphetamine Screen NEGATIVE (NEGATIVE) U Benzodiazepines Scrn NEGATIVE (NEGATIVE) Urine Cocaine Screen NEGATIVE (NEGATIVE) U Marijuana (THC) Screen NEGATIVE (NEGATIVE) Ethyl Alcohol 17 mg/dL H mg/dL (0-10) 05/04/16 05/04/16 05/04/16 19:10 19:10 19:10 WBC 6.36 10^3/uL 10^3/uL (3.80-9.50) RBC 4.56 10^6/uL 10^6/uL (4.40-6.38) Hgb 15.4 g/dL g/dL (13.7-17.5) POC Hgb Hct 44.1 % % (40.0-51.0) POC Hct MCV 96.7 fL fL (81.5-99.8) MCH 33.8 pg pg (27.9-34.1) MCHC 34.9 g/dL g/dL (32.4-36.7) RDW 13.6 % % (11.5-15.2) Plt Count 200 10^3/uL 10^3/uL (150-400) MPV 10.5 fL fL (8.7-11.7) Neut % (Auto) 56.4 % % (39.3-74.2) Lymph % (Auto) 29.4 % % (15.0-45.0) [place] % (Auto) 12.1 % % (4.5-13.0) Eos % (Auto) 1.3 % % (0.6-7.6) Baso % (Auto) 0.3 % % (0.3-1.7) Nucleat RBC Rel Count 0.0 % % (0.0-0.2) Absolute Neuts (auto) 3.59 10^3/uL 10^3/uL (1.70-6.50) Absolute Lymphs (auto) 1.87 10^3/uL 10^3/uL (1.00-3.00) Absolute Monos (auto) 0.77 10^3/uL 10^3/uL (0.30-0.80) Absolute Eos (auto) 0.08 10^3/uL 10^3/uL (0.03-0.40) Absolute Basos (auto) 0.02 10^3/uL 10^3/uL (0.02-0.10) Absolute Nucleated RBC 0.00 10^3/uL 10^3/uL (0-0.01) Immature Gran % 0.5 % % (0.0-1.1) Immature Gran # 0.03 10^3/uL 10^3/uL (0.00-0.10) PT 13.9 SEC SEC (12.0-15.0) INR 1.08 (0.83-1.16) VBG Lactic Acid POC Sodium Sodium 137 mEq/L mEq/L (134-144) POC Potassium Potassium 3.4 mEq/L L mEq/L (3.5-5.2) POC Chloride Chloride 96 mEq/L L mEq/L (97-110) Carbon Dioxide 25 mEq/l mEq/l (22-31) Anion Gap 16 mEq/L mEq/L (8-16) POC BUN BUN 21 mg/dL mg/dL (7-23) Creatinine 1.1 mg/dL mg/dL (0.7-1.3) POC Creatinine Estimated GFR > 60 Glucose 125 mg/dL H mg/dL (70-100) POC Glucose Calcium 9.7 mg/dL mg/dL (8.5-10.4) Total Bilirubin Troponin I < 0.012 ng/mL ng/mL (0-0.034) Urine Opiates Screen Urine Barbiturates Valproic Acid Ur Phencyclidine Scrn Ur Amphetamine Screen U Benzodiazepines Scrn Urine Cocaine Screen U Marijuana (THC) Screen Ethyl Alcohol 05/04/16 19:04 WBC RBC Hgb POC Hgb 15.3 gm/dL gm/dL (14.5-17.3) Hct POC Hct 45 % % (42.8-50.6) MCV MCH MCHC RDW Plt Count MPV Neut % (Auto) Lymph % (Auto) [place] % (Auto) Eos % (Auto) Baso % (Auto) Nucleat RBC Rel Count Absolute Neuts (auto) Absolute Lymphs (auto) Absolute Monos (auto) Absolute Eos (auto) Absolute Basos (auto) Absolute Nucleated RBC Immature Gran % Immature Gran # PT INR VBG Lactic Acid POC Sodium 138 mEq/L mEq/L (134-144) Sodium POC Potassium 3.1 mEq/L L mEq/L (3.3-5.0) Potassium POC Chloride 96 mEq/L mEq/L (96-108) Chloride Carbon Dioxide Anion Gap POC BUN 20 mg/dL mg/dL (7-23) BUN Creatinine POC Creatinine 1.2 mg/dL mg/dL (0.8-1.5) Estimated GFR Glucose POC Glucose 132 mg/dL H mg/dL (70-100) Calcium Total Bilirubin Troponin I Urine Opiates Screen Urine Barbiturates Valproic Acid Ur Phencyclidine Scrn Ur Amphetamine Screen U Benzodiazepines Scrn Urine Cocaine Screen U Marijuana (THC) Screen Ethyl Alcohol Medications Given: Discontinued Medications Sodium Chloride (Ns) 1,000 mls @ 0 mls/hr IV ONCE ONE PRN Reason: Wide Open Stop: 05/04/16 19:40 Last Admin: 05/04/16 19:00 Dose: 1,000 mls Sodium Chloride (Ns) 1,313 mls @ 0 mls/hr IV ONCE ONE PRN Reason: Wide Open Stop: 05/04/16 21:16 Last Admin: 05/04/16 20:45 Dose: 1,313 mls Lorazepam (Ativan Injection) 1 mg IVP EDNOW ONE Stop: 05/04/16 19:12 Last Admin: 05/04/16 19:10 Dose: 1 mg Lorazepam (Ativan Injection) 1 mg IVP EDNOW ONE Stop: 05/04/16 19:39 Last Admin: 05/04/16 19:20 Dose: 1 mg Lorazepam (Ativan Injection) 1 mg IVP EDNOW ONE Stop: 05/04/16 20:38 Last Admin: 05/04/16 20:20 Dose: 1 mg Ondansetron HCl (Zofran) 8 mg IVP EDNOW ONE Stop: 05/04/16 19:05 Last Admin: 05/04/16 19:09 Dose: 4 mg Sodium Chloride (Ns *For Sepsis Order Set Only*) 0 ml IV EDNOW ONE Stop: 05/04/16 20:34 Last Admin: 05/04/16 21:18 Dose: Not Given Point of Care Test Results: 05/04/16 19:04 POC Sodium 138 POC Potassium 3.1 L POC Chloride 96 POC BUN 20 POC Creatinine 1.2 POC Glucose 132 H Departure - Departure Disposition: [facility] Inpatient Acute Clinical Impression: Altered mental status Qualifiers: Altered mental status type: delirium Qualified Code(s): R41.0 - Disorientation , unspecified Condition: Serious
[2016-05-04 19:26] LABS: INR 1.08 (0.83-1.16); PROTIME(PATIENT) 13.9 SEC (12.0-15.0)
[2016-05-04 19:34] LABS: ANION GAP 16 mEq/L (8-16); CALCIUM 9.7 mg/dL (8.5-10.4); CARBON DIOXIDE 25 mEq/l (22-31); CHLORIDE 96 mEq/L (97-110); CREATININE 1.1 mg/dL (0.7-1.3); GLOMERULAR FILTRATION RATE > 60; GLUCOSE 125 mg/dL (70-100); POTASSIUM 3.4 mEq/L (3.5-5.2); SODIUM 137 mEq/L (134-144)
[2016-05-04] MEDS ORDERED: NS 1,000 ML IV ONE (19:39)
[2016-05-04 19:46] LABS: TROPONIN I < 0.012 ng/mL (0-0.034)
--- NOTE | 2016-05-04 19:47 | CPEKG ---
Heart Rate: 59 RR Interval: 1017 P-R Interval: 192 QRSD Interval: 154 QT Interval: 492 QTC Interval: 488 P [place]: 54 QRS [place]: -84 T Wave [place]: 52 EKG Severity - ABNORMAL ECG - EKG Impression: SINUS RHYTHM EKG Impression: RIGHT BUNDLE BRANCH BLOCK EKG Impression: PROBABLE INFERIOR INFARCT, AGE INDETERMINATE EKG Impression: similar to previous Electronically Signed By: Reuben Porras 04-May-2016 20:06:58
[2016-05-04 19:52] LABS: BILIRUBIN,TOTAL 1.2 mg/dL (0.1-1.4); ETHANOL SERUM 17 mg/dL (0-10)
[2016-05-04] MEDS ORDERED: NS 1,000 ML BAG *FOR SEPSIS ORDER SET ONLY IV ONE (20:33)
[2016-05-04 20:53] LABS: CSF APPEARANCE CLEAR (CLEAR); CSF COLOR COLORLESS (COLORLESS); CSF SUPERNATANT COLORLESS (COLORLESS)
[2016-05-04 20:55] LABS: LACGHOST ORDER
[2016-05-04 20:58] LABS: PROTEIN, CSF 66 mg/dL (12-60)
[2016-05-04 21:05] LABS: WBC, CSF 4 /mm3 (0-5)
[2016-05-04 21:05] LABS: CSF APPEARANCE CLEAR (CLEAR); CSF COLOR COLORLESS (COLORLESS); CSF SUPERNATANT COLORLESS (COLORLESS)
[2016-05-04] MEDS ORDERED: SODIUM CHLORIDE IV ONE (21:15)
[2016-05-04 21:16] LABS: WBC, CSF 0 /mm3 (0-5)
[2016-05-04] MEDS ORDERED: ACETAMINOPHEN 325 MG TAB PO PRN (22:39)
[2016-05-04] MEDS ORDERED: ONDANSETRON 4 MG/2 ML VIAL IVP PRN (22:39)
[2016-05-04] MEDS ORDERED: NS 1,000 ML IV SCH (22:45)
--- NOTE | 2016-05-04 22:48 | PDGENHP ---
History and Physical History and Physical: HISTORY AND PHYSICAL CC:Loss of consciousness HISTORY: This patient was reportedly doing well early today. His daughter visits him yesterday and he seems tired but otherwise had no complaints. This morning she spoke to him on the phone and he said he felt much better and back to normal energy. This evening he was just starting to have a glass of wine to just Cipro 2 with some friends when he suddenly slumped over forward and remained unresponsive for several minutes. Following this was confused agitated and combative. Paramedics were summoned and brought him here and he remained as he arrived here confused agitated and combative. The patient was not able to give any kind of history and was not cooperating with examination, was felt to be danger to himself through his confusion. He was given a total of 3 mg of Ativan to keep him safe to be able to accomplish evaluation in the ER. At this time he is still unable to give any history but he is arousable to at least mumble and attempt to answer questions but nothing he says is discernible. Is no other specific acute historical information. As best I can tell talking to his daughter there been no changes in his medications recently. There has been no sign of fevers and he has been eating well. He is fairly active and independent generally speaking. The patient had been here a month ago after a fall and has been having some frequent falls probably related to his parkinsonism and chronic orthostasis. At that time did not appear to be any new acute neurologic issues. ROS: A comprehensive 10 system review is attempted through his daughter, revealed no other significant findings PAST MEDICAL HISTORY: Hypertension Parkinsonism with gait instability, orthostasis, and history of falls Question possible TIA Fall with subdural hematoma and 1/2 years ago;. This was followed by a single stroke and he has been on anticonvulsant medications since then Diabetes type 2 Pelvic fracture Benign prostatic hypertrophy Right bundle branch block Mild cognitive deficit FAMILY MEDICAL HISTORY: both parents are , no known relevant medical issues talking to his daughter SOCIAL HISTORY: Single lives in an apartment at [facility] Drinks 1 glass of wine a couple nights a week or thereabouts never more, no tobacco MEDICATIONS: The patients list has been reconciled by our clinical pharmacist in the EMR. I have reviewed the list and ordered appropriate medicines. PHYSICAL EXAMINATION: Vital Signs: mild systolic hypertension otherwise stable without fever Cigar Tobacco Processing Supervisor: sinus rhythm in the ER Examination: General: lying on a ER gurney with eyes closed with occasional purposeful movements of all 4 limbs, neck and trunk. He does open his eyes when I asked him to and that makes eye contact, he mumbles in attempt to try and answer questions but does not say anything discernible. He then falls back to sleep quickly. No sign of any facial asymmetry or obvious focal weakness but cranial nerve and motor exams are limited. No tremor no evidence of any significant trauma Skin: warm, dry, good color, no rash HEENT: normal Neck: no mass or jvd Resps: relaxed Lungs: clear breath sounds Heart: regular, no murmur Abdomen: soft, nondistended, nontender, +BS, no mass Upper Extremities: normal Lower Extremities: no edema, warm No Bleeding or bruising Neurologic: normal speech/language, normal oracle manager, no focal weakness IV site: looks normal LABORATORY DATA: spinal fluid shows a 0 white cells and 18 red cells in tube 4, serum valproic acid level is low at 22 which is notably lower than it was when he is here month ago Potassium borderline low at 3.4 chemistry and CBC otherwise unremarkable RADIOLOGY STUDIES: CT scan of head with nothing acute Chest x-ray,My personal reading of the images: also with no acute findings 12 lead EKG, my personal reading of the tracing: Sinus rhythm with right bundle branch block, unchanged from previous EKGs ASSESSMENT: # acute seizure versus syncope # Currently sedated with Ativan # History of seizure disorder on medications, currently with a low valproic acid level ; we are unable to at this time assess his compliance with his medications # Parkinson's disease with gait i instability and history of falls # Type 2 diabetes, currently no sign of hypoglycemia, 0 though this could be a potential cause or contributor to seizure as well PLANS: - will give some IV valproic acid at this time and continue IV until he is eating well and follows levels -No more Ativan at this time unless he has further seizure -Fall risk precautions -PT and OT consults -DVT prophylaxis I have reviewed the patient's case in detail with Dr. Reuben Porras I have reviewed the patient's past medical records as part of this assessment, including previous hospital records including admission notes, physician rounding notes, laboratory data
[2016-05-04] MEDS ORDERED: VALPROATE SODIUM 500 MG in D5W 50 ML IV SCH (23:00)
[2016-05-05 04:55] LABS: % IMMATURE GRANULYOCYTES 0.2 % (0.0-1.1); ABSOLUTE IMMATURE GRANULOCYTES 0.02 10^3/uL (0.00-0.10); ADD DIFF? NO; ADD MORPH? NO; ADD SCAN? NO; ATYPICAL LYMPHOCYTE FLAG 0 (0-99); FRAGMENT RBC FLAG 0 (0-99); HEMATOCRIT 38.3 % (40.0-51.0); HEMOGLOBIN 13.3 g/dL (13.7-17.5); LEFT SHIFT FLG 10 (0-99); LIPEMIA HEMOLYSIS FLAG 90 (0-99); MEAN CELL HEMOGLOBIN 33.3 pg (27.9-34.1); MEAN CELL HEMOGLOBIN CONCENTR. 34.7 g/dL (32.4-36.7); MEAN CELL VOLUME 95.8 fL (81.5-99.8); MEAN PLATELET VOLUME 10.1 fL (8.7-11.7); PLATELET CLUMPS FLAG 0 (0-99); PLATELET COUNT 177 10^3/uL (150-400); RED CELL DISTRIBUTION WIDTH 13.6 % (11.5-15.2)
[2016-05-05 05:11] LABS: ALANINE AMINOTRANSFERASE 30 IU/L (21-72); ALBUMIN 3.3 g/dL (3.5-5.0); ALKALINE PHOSPHATASE 38 IU/L (38-126); ANION GAP 9 mEq/L (8-16); ASPARTATE AMINOTRANSFERASE 18 IU/L (17-59); BILIRUBIN,TOTAL 1.3 mg/dL (0.1-1.4); CALCIUM 8.6 mg/dL (8.5-10.4); CARBON DIOXIDE 28 mEq/l (22-31); CHLORIDE 101 mEq/L (97-110); CREATININE 0.9 mg/dL (0.7-1.3); GLOMERULAR FILTRATION RATE > 60; GLUCOSE 104 mg/dL (70-100); MAGNESIUM 1.6 mg/dL (1.6-2.3); POTASSIUM 3.3 mEq/L (3.5-5.2); SODIUM 138 mEq/L (134-144); TOTAL PROTEIN 5.8 g/dL (6.3-8.2)
[2016-05-05] MEDS ORDERED: metFORMIN SR 500 MG TAB PO SCH (09:00)
[2016-05-05] MEDS ORDERED: EPLERENONE 25 MG TAB PO SCH (09:00)
[2016-05-05] MEDS: ENOXAPARIN 40 MG/0.4 ML SYR SC SCH (11:21)
[2016-05-05] MEDS: POTASSIUM Cl (KCl) 40 MEQ in NS 1,000 ML IV SCH ×2 (12:35→23:50)
[2016-05-05 13:19] LABS: COLOR YELLOW; LEUKOCYTE ESTERASE,URINE NEGATIVE (NEGATIVE); NITRITE,URINE NEGATIVE (NEGATIVE)
[2016-05-05 13:22] LABS: MUCUS TRACE /lpf (NONE-1+); RBC,URINE 50-182 /hpf (0-3); WBC,URINE 15-25 /hpf (0-3)
--- NOTE | 2016-05-05 14:15 | HOSPPROG ---
Hospitalist Progress Note Assessment/Plan: Assessment: 85-year-old male presents with acute loss of consciousness followed by acute encephalopathy Plan: 1. Loss of consciousness. Acute, described as sudden loss of consciousness while he is enjoying a glass of wine with friends, alcohol level indicates he was not intoxicated - differential includes seizure versus parkinsonian spell versus TIA - reviewed outside records including Neurology consultation by Dr. 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 Lofton, he will consult in this patient's care 2. Acute encephalopathy. Evidenced by global brain dysfunction characterized as disorientation plus confusion plus somnolence which are an acute change from the patient's baseline, unclear etiology although possibly secondary to the toxic effects of Ativan received in the emergency department - currently not mentating at his baseline - further workup includes urinalysis to rule out urinary tract infection and if negative remove Beavers catheter - get influenza PCR - physical therapy, occupational therapy, case management, as the patient may require group home facility given his high risk of deconditioning while he is encephalopathic - chest x-ray demonstrates no airspace disease, personally interpreted - CSF not indicative of meningitis 3. Seizure disorder. Chronic, the patient is on Depakote is unclear when his last seizure was - low Depakote level may be indicative of medication non adherence, that being said the patient is adamant that he takes his medication regularly - elevated venous lactic acid level on presentation may be indicative that his acute LOC was in fact a seizure - status post IV Depakote last night, continue orally at home dosing - Neurology consultation appreciated 4. Hypokalemia. Secondary to poor oral intake, replete with IV fluids 5. Right bundle branch block. Unchanged from previous EKG, personally interpreted 6. Chronic hypertension. Patient has reportedly had very labile hypertension and has had an emergency department presentation this month for more aggressive management - systolic blood pressure has been within a safe range here, 140-160, not orthostatic - currently holding up layer known and amiloride given his poor oral intake - if patient becomes acutely hypertensive, stop IV fluids and reintroduce the rest of his home medications Diet. Cardiac diet Prophylaxis. High risk patient, Lovenox 40 Code. Full note Disposition. Anticipated discharge is uncertain this time, pending further workup as outlined above as well as Neurology consultation and potentially further neuro imaging. Subjective: Patient reports he does not know why he is here denies being in pain Objective: Vital Signs Temp Pulse Resp BP Pulse Ox 36.6 C 62 17 136/71 H 91 L 05/05/16 11:54 05/05/16 12:12 05/05/16 11:54 05/05/16 12:12 05/05/16 11:54 Laboratory Results 05/05/16 04:37 05/05/16 04:37 05/04/16 05/05/16 05/06/16 05:59 05:59 05:59 Intake Total 2813 Output Total 1350 Balance 1463 PT 13.9 SEC (12.0-15.0) 05/04/16 19:10 INR 1.08 (0.83-1.16) 05/04/16 19:10 - Physical Exam Constitutional: no apparent distress, not in pain, chronically ill appearing, No uncomfortable Eyes: PERRL, anicteric sclera, EOMI Cardiovascular: No systolic murmur, No irregularly irregular, No tachycardia, No edema Respiratory: no respiratory distress, no rales or rhonchi, clear to auscultation Gastrointestinal: normoactive bowel sounds, soft, non-tender abdomen, no palpable masses Neurologic: sensation intact bilaterally, weakness ( subjective weakness in his right upper and right lower extremity, motor strength is 5/5 bilaterally), facial droop ( right mouth pulse), other ( alert awake oriented x2 to person and place only, apraxia right upper extremity on [id number] evaluation) Psychiatric: not anxious, encephalopathic, flat affect, No agitated ICD10 Worksheet Patient Problems: Problems Problem Status Onset Altered mental status Acute Back pain Acute Multiple falls Acute
[2016-05-05] MEDS: BISOPROLOL FUMARATE 5 MG TAB PO SCH (14:34)
[2016-05-05] MEDS: FINASTERIDE 5 MG TAB PO SCH (14:34)
[2016-05-05] MEDS: ASPIRIN EC 81 MG TAB PO SCH (14:34)
[2016-05-05] MEDS: DOCUSATE SODIUM 100 MG CAP PO SCH (14:34)
[2016-05-05] MEDS: LISINOPRIL 40 MG TAB PO SCH (14:35)
[2016-05-05] MEDS: TAMSULOSIN HCL 0.4 MG CAP PO SCH (14:35)
[2016-05-05] MEDS: OMEGA-3 FATTY ACIDS 1,000 MG CAP PO SCH (14:35)
[2016-05-05] MEDS: DIVALPROEX ER 500 MG TAB PO SCH (20:47)
[2016-05-05] MEDS: ATORVASTATIN CALCIUM 40 MG TAB PO SCH (20:47)
--- NOTE | 2016-05-05 21:10 | GCON ---
[f rep st] CONSULTATION NEUROLOGY CONSULTATION. CHIEF COMPLAINT: Acute loss of consciousness. HISTORY OF PRESENT ILLNESS: The patient is a very pleasant, 85-year-old gentleman who was evaluated last month by my colleague, Dr. Holder, for parkinsonism and was thought to have vascular parkinsonism with more involvement in the lower extremities. He has outpatient neurology consultation scheduled with Dr. Ferguson, a Parkinson's subspecialist. He lives in the [facility] and was going to meet friends at the bar there to have a drink. He was sitting at a table and having a glass of wine. He perhaps had a half glass of wine when he suddenly lost consciousness and slumped forward onto the table with his head face down. There was no convulsive activity or tongue biting. His pants may have been wet, noted by EMS, but no definite seizure activity. He was unarousable for about 8 minutes apparently. The patient is amnestic for any prodromal symptoms or any time around this event. However, in retrospect, he recalls having vivid dreams during this time of people chasing him, or 3 men trying to grab him. He was brought to the emergency department and admitted for further evaluation. There has been no infection or other cause found for his encephalopathy and loss of consciousness. He had a full evaluation just in March 2016 with MRI brain and angiography of the head and neck. He had fairly patent vessels from CT angiography of the head and neck. MRI brain showed microvascular changes and atrophy with a punctate area of diffusion restriction in the right occipital area, likely an evolving microvascular change. Reviewing the images myself, it certainly looks very small and of uncertain clinical significance. The patient is now getting back to his baseline. There have been no further symptoms. He has had no seizure activity. He has not started any medication for Parkinson's yet. REVIEW OF SYSTEMS: A 10-point review of systems done and only pertinent to HPI. PAST MEDICAL HISTORY: Please refer to Dr. James's history and physical. SOCIAL HISTORY: Please refer to Dr. James's history and physical. FAMILY HISTORY: Please refer to Dr. James's history and physical. HOME MEDICATIONS: Please refer to Dr. James's history and physical. ALLERGIES: Please refer to Dr. James's history and physical. EXAM: VITAL SIGNS: Blood pressure 112/65. No orthostatic blood pressure noted , we have checked this. He is afebrile 36.7, O2 sats 97%. Respirations 15. NEUROLOGIC: The patient is awake, alert, he is somewhat slow in responses, but is appropriate. He is fluent. No aphasia. He has somewhat masked face and hypophonic voice. On motor exam, there is some increased muscle tone in his lower extremities. No pill rolling tremor noted. No focal weakness. Sensory exam is unremarkable. Coordination shows no tremor at rest. His daughter describes a very stooped and small stride length shuffling gait. I did not walk him today due to his mental status. IMPRESSION AND PLAN: 1. Vascular parkinsonism. 2. Loss of consciousness. The spell that caused this most recent admission may have been a sleep attack. He has vivid dream recall around this time and he may have also had some post- event sleep inertia in regard to the encephalopathy symptoms. Certainly the other differential diagnosis would be a focal seizure. There is an increased prevalence of focal seizure disorders in individuals with neurodegenerative processes. We discussed the differential diagnosis at length. He has no symptoms or signs of dysautonomia at this point. I recommend we go ahead and start a half tablet of Sinemet 25/100 daily in the morning. He will take it 1 hour before or after meals. We discussed potential risks, benefits, alternatives of Sinemet. That way he can try this medication prior to his consultation with Dr. Ferguson coming up on May 22, 2016. I have also recommended that during the consult with Dr. Ferguson they inquire about an EEG to assess for any epileptiform discharges. She certainly could advise him accordingly based on those findings. He will be on indefinite driving restrictions and seizure precautions. No further recommendations now. He had an extensive neurovascular and neurologic evaluation just last month. I think he can be discharged back to his residence once he is medically cleared. Thank you for this consultation. Please do not hesitate to call our service if he has any further neurologic changes. /[id number]/MODL MTDD
[2016-05-06 05:18] LABS: % IMMATURE GRANULYOCYTES 0.4 % (0.0-1.1); ABSOLUTE IMMATURE GRANULOCYTES 0.02 10^3/uL (0.00-0.10); ADD DIFF? NO; ADD MORPH? NO; ADD SCAN? NO; ATYPICAL LYMPHOCYTE FLAG 0 (0-99); FRAGMENT RBC FLAG 0 (0-99); HEMOGLOBIN 13.8 g/dL (13.7-17.5); LEFT SHIFT FLG 0 (0-99); LIPEMIA HEMOLYSIS FLAG 90 (0-99); MEAN CELL HEMOGLOBIN CONCENTR. 34.5 g/dL (32.4-36.7); MEAN CELL VOLUME 98.5 fL (81.5-99.8); MEAN PLATELET VOLUME 10.3 fL (8.7-11.7); PLATELET CLUMPS FLAG 10 (0-99); PLATELET COUNT 173 10^3/uL (150-400); RED BLOOD CELL COUNT 4.06 10^6/uL (4.40-6.38); RED CELL DISTRIBUTION WIDTH 13.6 % (11.5-15.2)
[2016-05-06 05:33] LABS: ALANINE AMINOTRANSFERASE 28 IU/L (21-72); ALBUMIN 3.1 g/dL (3.5-5.0); ALKALINE PHOSPHATASE 36 IU/L (38-126); ANION GAP 7 mEq/L (8-16); ASPARTATE AMINOTRANSFERASE 16 IU/L (17-59); BILIRUBIN,TOTAL 1.2 mg/dL (0.1-1.4); CALCIUM 8.6 mg/dL (8.5-10.4); CARBON DIOXIDE 28 mEq/l (22-31); CHLORIDE 104 mEq/L (97-110); CREATININE 0.8 mg/dL (0.7-1.3); GLOMERULAR FILTRATION RATE > 60; GLUCOSE 90 mg/dL (70-100); POTASSIUM 3.6 mEq/L (3.5-5.2); SODIUM 139 mEq/L (134-144); TOTAL PROTEIN 5.5 g/dL (6.3-8.2)
[2016-05-06] MEDS: ASPIRIN EC 81 MG TAB PO SCH (08:39)
[2016-05-06] MEDS: OMEGA-3 FATTY ACIDS 1,000 MG CAP PO SCH (08:40)
[2016-05-06] MEDS: LISINOPRIL 40 MG TAB PO SCH (08:40)
[2016-05-06] MEDS: TAMSULOSIN HCL 0.4 MG CAP PO SCH (08:40)
[2016-05-06] MEDS: FINASTERIDE 5 MG TAB PO SCH (08:40)
[2016-05-06] MEDS: DOCUSATE SODIUM 100 MG CAP PO SCH (08:40)
[2016-05-06] MEDS: ENOXAPARIN 40 MG/0.4 ML SYR SC SCH (08:46)
[2016-05-06] MEDS: POTASSIUM Cl (KCl) 40 MEQ in NS 1,000 ML IV SCH (09:58)
[2016-05-06] MEDS: BISOPROLOL FUMARATE 5 MG TAB PO SCH (12:12)
--- NOTE | 2016-05-06 12:41 | HOSPPROG ---
Hospitalist Progress Note Assessment/Plan: 85-year-old male presents with acute loss of consciousness followed by acute encephalopathy I/P # Parkinsonism: -Dr. Lofton following -He has started Sinemet 25/100 q am, 1/2 tablet -He will have f/u with Dr. Ferguson on May 22 # Loss of consciousness. Acute, described as sudden loss of consciousness while he is enjoying a glass of wine with friends, alcohol level indicates he was not intoxicated - differential includes seizure versus parkinsonian spell versus TIA - reviewed outside records including Neurology consultation by Dr. 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 Evidenced by global brain dysfunction characterized as disorientation plus confusion plus somnolence which are an acute change from the patient's baseline, unclear etiology although possibly secondary to the toxic effects of Ativan received in the emergency department - currently not mentating at his baseline - CSF not indicative of meningitis # Weakness and Deconditioning: -PT/OT #Seizure disorder. Chronic, the patient is on Depakote is unclear when his last seizure was - low Depakote level may be indicative of medication non adherence, that being said the patient is adamant that he takes his medication regularly - elevated venous lactic acid level on presentation may be indicative that his acute LOC was in fact a seizure - Neurology consultation appreciated 4. Hypokalemia. Secondary to poor oral intake, replete with IV fluids 5. Right bundle branch block. Unchanged from previous EKG 6. Chronic hypertension. Patient has reportedly had very labile hypertension and has had an emergency department presentation this month for more aggressive management - systolic blood pressure has been within a safe range here, 140-160, not orthostatic. There have been some isolated reading in the 180's but these quickly decrease w/o intervention. No meds for now Diet. Cardiac diet Prophylaxis. High risk patient, Lovenox 40 Code. Full Disposition. OK to D/c per Neuro once placement is obtained. S: No overnight events Per Neuro, OK to d/c once placement is obtained O: VSS reviewed, intermittent Hypertension NAD AAOx3 RRR CTAB s/nt/nd no edema Labs/Studies: Reviewed. Objective: Vital Signs Temp Pulse Resp BP Pulse Ox 36.3 C 61 16 143/74 H 94 05/06/16 12:15 05/06/16 12:15 05/06/16 12:15 05/06/16 12:15 05/06/16 12:15 Laboratory Results 05/06/16 04:53 05/06/16 04:53 05/05/16 05/06/16 05/07/16 05:59 05:59 05:59 Intake Total 2813 2754 450 Output Total 1350 1050 50 Balance 1463 1704 400 PT 13.9 SEC (12.0-15.0) 05/04/16 19:10 INR 1.08 (0.83-1.16) 05/04/16 19:10 ICD10 Worksheet Patient Problems: Problems Problem Status Onset Altered mental status Acute Back pain Acute Multiple falls Acute
[2016-05-06] MEDS: CARBIDOPA/LEVODOPA 25 MG/100 MG TAB PO SCH (14:48)
[2016-05-06] MEDS: ATORVASTATIN CALCIUM 40 MG TAB PO SCH (21:02)
[2016-05-06] MEDS: DIVALPROEX ER 500 MG TAB PO SCH (21:02)
[2016-05-07 07:39] VITALS: TEMP 98
[2016-05-07] MEDS: DOCUSATE SODIUM 100 MG CAP PO SCH (08:08)
[2016-05-07] MEDS: ASPIRIN EC 81 MG TAB PO SCH (08:08)
[2016-05-07] MEDS: CARBIDOPA/LEVODOPA 25 MG/100 MG TAB PO SCH (08:08)
[2016-05-07] MEDS: FINASTERIDE 5 MG TAB PO SCH (08:08)
[2016-05-07] MEDS: LISINOPRIL 40 MG TAB PO SCH (08:09)
[2016-05-07] MEDS: OMEGA-3 FATTY ACIDS 1,000 MG CAP PO SCH (08:09)
[2016-05-07] MEDS: TAMSULOSIN HCL 0.4 MG CAP PO SCH (08:09)
[2016-05-07] MEDS: ENOXAPARIN 40 MG/0.4 ML SYR SC SCH (08:09)
[2016-05-07] MEDS: BISOPROLOL FUMARATE 5 MG TAB PO SCH (12:41)
[2016-05-07 13:09] VITALS: BP 149/76; PULSE 58; RESP 16; O2SAT 93
--- NOTE | 2016-05-07 13:42 | PDIAF ---
- Diagnosis Diagnosis: encephalopathy, parkinsonism Code Status: Full Code - Medication Management Discharge Medications: Medications to Continue on Transfer Bisoprolol Fumarate [Zebeta (*)] 5 mg PO DAILY 05/28/15 [Last Taken 05/04/16] Eplerenone [Inspra 25 MG (*)] 25 mg PO DAILY 05/28/15 [Last Taken 05/04/16] Finasteride [Proscar 5 MG (*)] 5 mg PO DAILY 05/28/15 [Last Taken 05/04/16] Lisinopril [Zestril 40 mg (*)] 40 mg PO DAILY 05/28/15 [Last Taken 05/04/16] Tamsulosin HCl [Flomax 0.4 MG (*)] 0.8 mg PO DAILY 05/28/15 [Last Taken 05/04/16 ] Aspirin EC [Aspirin EC 81 mg (*)] 81 mg PO DAILY 03/26/16 [Last Taken 05/04/16] Divalproex ER [Depakote ER 500 MG (*)] 500 mg PO HS 03/26/16 [Last Taken ] Docusate Sodium [Move It Along] 200 mg PO DAILY 03/26/16 [Last Taken 05/04/16] Herbals/Supplements -Info Only 1 ea PO DAILY 03/26/16 [Last Taken 05/04/16] Carmi-3 Fatty Acids [Fish Oil 1000 mg (*)] 1,000 mg PO DAILY 03/26/16 [Last Taken 05/04/16] Atorvastatin Calcium 40 mg PO HS 05/04/16 [Last Taken 05/03/16] metFORMIN SR [Glucophage XR 500 mg (*)] 500 mg PO DAILY 05/04/16 [Last Taken ] Carbidopa/Levodopa 25/100Mg [Sinemet 25/100 MG (*)] 0.5 tab PO DAILY #30 tab [Last Taken Unknown] Discharge Medications: Refer to the Discharge Home Medication list for PRN reason. 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
--- NOTE | 2016-05-07 13:48 | PDDCSUM ---
Discharge Summary Discharge Summary: 85-year-old male admitted for acute loss of consciousness followed by acute encephalopathy. He was admitted and treated. Etiology remains unclear, see below. He was evaluated by Neurology. He was started on Sinemet. He continues to have weakness which is generalized, but overall is doing better. Cognition is back to baseline. He will be discharge to rehab. DDX: # Parkinsonism: -Dr. Lofton provided consultation -He has started Sinemet 25/100 q am, 1/2 tablet -He will have f/u with Dr. Ferguson on May 22 # Loss of consciousness. Acute, described as sudden loss of consciousness while he is enjoying a glass of wine with friends, alcohol level indicates he was not intoxicated - differential includes seizure versus parkinsonian spell versus TIA - reviewed outside records including Neurology consultation by Dr. 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 back to baseline - CSF not indicative of meningitis # Weakness and Deconditioning: -PT/OT -Rehab #Seizure disorder. On Depakote 4. Hypokalemia. resolved 5. Right bundle branch block. Unchanged from previous EKG 6. Chronic hypertension. -Continue with current BP meds. He has some labile BP with intermittently low. Would be cautious on increasing doses. Diet. Cardiac diet Code. Full Meds/All: see med rec. Sinemet started during this hospitalization O: VSS reviewed, intermittent Hypertension NAD AAOx3 RRR CTAB s/nt/nd no edema total care time spent on discharge is 40 minutes
== END 2016-05-07 14:43 | DRG 57 ==
LOC: EDUNIT# → OBSVTOIN 22:39 → F3N 22:47
PROVIDERS: ADMIT Internal Medicine; ATTEND Family Medicine
DX: G21.4 Vascular parkinsonism (principal); G40.909 Epilepsy, unspecified, not intractable, without status epilepticus; G45.9 Transient cerebral ischemic attack, unspecified; E87.6 Hypokalemia; I45.10 Unspecified right bundle-branch block
CPT/HCPCS: 80305; 82947-QW; 92523-GN; 92610-GN; 96374; 97116-GP; 97163-GP; 97166-GO; 97530-GP; 97535-GO; G0480; G8978-GP-CM; G8979-GP-CI; G8987-GO-CM; G8988-GO-CI; G8996-GN-CI; G8997-GN-CI; G9168-GN-CK; G9169-GN-CK; G9170-GN-CK; J1650; J2405

== ENCOUNTER 2016-05-07 15:12 | Inpatient (IN) | payer OTHER, MEDICARE ==
[2016-05-07] MEDS ORDERED: POLYETHYLENE GLYCOL 3350 17 GM PKT PO PRN (16:39)
[2016-05-07] MEDS ORDERED: BISACODYL 10 MG SUPP PR PRN (16:39)
--- NOTE | 2016-05-07 19:37 | GHP ---
POST ADMISSION PHYSICIAN EVALUATION AND REHABILITATION TREATMENT PLAN DATE OF ADMISSION: 05/07/2016 DATE OF EVALUATION: May 07, 2016. TIME OF EVALUATION: 1645. REFERRING FACILITY: [facility]. IMPAIRMENT GROUP: 3.2. DATE OF ONSET: 05/04/2016. REFERRING PHYSICIAN: Dr. James. CONSULTING PHYSICIANS: He was seen in consultation by Neurology, Dr. Lofton. REHABILITATION DIAGNOSIS: Parkinsonism. ETIOLOGIC DIAGNOSIS: Parkinsonism. HISTORY OF PRESENT ILLNESS: Mr. Fong had an abrupt loss of consciousness lasting for 8 minutes at the [facility] where he lives. He was enjoying a glass of wine with friends but had not become intoxicated. When he arrived at the emergency department, he was agitated, confused, and combative, and was treated with lorazepam. He was seen in consultation by Dr. Lofton of Neurology who thought the etiology of his episode was potentially seizure as he has a history of seizure disorder and was subtherapeutic on divalproex sodium, versus a sleep attack, possibly related to his parkinsonism. Patient was loaded with valproic acid. Other aspects of his evaluation included a lumbar puncture which was negative for any infection or other significant abnormality, EKG which was unchanged and showed right bundle branch block, chest x-ray which was read as normal, and a head CT which was also unchanged from previous and showed underlying atrophy and ventriculomegaly with white matter microvascular ischemic gliosis. He was evaluated by therapy staff including Speech and Language Pathology, Physical Therapy and Occupational Therapy, and was determined to have significant functional limitations appropriate for inpatient rehabilitation. 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 OTHER STUDIES AND LABS IN THE HOSPITAL: CBC was overall within normal limits. Initially had a low platelet count which improved. He had some minimal anemia in the hospital which resolved. Coagulation studies were normal. Serum chemistry showed a slightly low TSH of 0.393; otherwise renal function and electrolytes were overall within normal limits. He had a low potassium at 3.1 when he was admitted. He had a slightly elevated glucose on several determinations, but these may not have been fasting. Liver function tests were overall within normal limits. Urinalysis showed 2+ protein, trace ketones, 3+ blood, red blood cells and white blood cells, but otherwise was not consistent with infection. His ethyl alcohol level in the serum was 17, above normal, but not very high. His valproic acid level was low at 22.5. Serology was negative for influenza and serology on cerebral spinal fluid was negative for HSV. PRECAUTIONS: He is a fall risk. He has seizure precautions. ACTIVE COMORBIDITIES: He has no active tier 1, tier 2, or tier 3 comorbidities. PAST MEDICAL HISTORY: 1. Cerebrovascular accident and possible TIAs. 2. Hypertension. 3. Dyslipidemia. 4. Possible history of subdural hematoma. 5. Benign prostatic hypertrophy. 6. Diabetes mellitus type 2. 7. Pelvic fracture. 8. History of cryoablation of renal cyst. 9. Seizure disorder. 10. Multiple recent falls. 11. Right bundle branch block. 12. Mild cognitive deficits. PRE-HOSPITAL MEDICATIONS: I do not have a complete list, but presumably he was taking the followin. Aspirin 81 mg p.o. q. day. 2. Atorvastatin 40 mg p.o. q.h.s. 3. Bisoprolol 5 mg p.o. q. day. 4. Divalproex ER 500 mg p.o. at bedtime. 5. Docusate 200 mg p.o. q. day. 6. Eplerenone 25 mg p.o. q. day. 7. Finasteride 5 mg p.o. q. day. 8. Lisinopril 40 mg p.o. q. day. 9. Metformin extended release 500 mg p.o. q. day. 10. [place]-3 fatty acids 1000 mg p.o. q. day. 11. Tamsulosin 0.8 mg p.o. q. day. ADMIT MEDICATIONS: Are the same as the home plus: Enoxaparin 40 mg p.o. q. day , polyethylene glycol 17 g p.o. q. day p.r.n. ALLERGIES: There is an allergy listed to codeine. FAMILY HISTORY: Noncontributory. PSYCHOSOCIAL HISTORY: He lives alone at the [facility]. He has been there for about a year and a half. He moved from the [facility] to be near his adult daughter. He also has grandchildren locally. He is a nonsmoker. He uses occasional alcohol but not to excess. He is retired as a bookstore clerk. REVIEW OF SYSTEMS: He denies pain, dyspnea, cough, fevers, chills, nausea, vomiting, constipation, diarrhea, recent weight change, heat or cold intolerance , vision changes, headache, numbness, tingling, or weakness of the extremities, joint pain or joint stiffness, urinary frequency or dysuria, and/or sensation of incomplete voiding, and otherwise a 10-point review of systems is negative. PHYSICAL EXAM: VITAL SIGNS: Blood pressure is 182/93, heart rate is 57, respiratory rate is 16, oxygen saturation is 96% on room air, temperature is 37.1 degrees centigrade. His weight is 75.4 kg for a body mass index of 26.8. GENERAL: This is a well-nourished, well-developed, somewhat overweight appearing, elderly gentleman, appears his chronologic age, cooperative, and in no acute distress. HEENT: Extraocular movements are intact. Pupils are equal , round, and reactive to light. Mucous membranes are moist. Dentition is in good condition. NECK: Supple. HEART: There is a regular rate and rhythm with a 1 to 2 over 6 systolic murmur at the left sternal border. LUNGS: Clear to auscultation bilaterally. ABDOMEN: Soft, nontender, nondistended with normoactive bowel sounds and no hepatosplenomegaly. EXTREMITIES: There is no cyanosis, clubbing, or edema. Radial and dorsalis pedis pulses are 2+ bilaterally. NEUROLOGIC: He is alert and oriented x3. He is somewhat hard of hearing. Cranial nerves 2-12 are grossly intact. There is no focal weakness but he is very slow to initiate movement. This is particularly notable when he was asked to sign a document and went very slowly, 1 letter at a time, with relative micrographia. There is no focal weakness though his hand factory hand are generally 4+/5. Sensation is intact to light touch. Deep tendon reflexes are globally hypoactive. He needs assistance to arise to seated from supine and he tends to be retropulsive in terms of seated balance. CURRENT LEVEL OF FUNCTION PER THE PREADMISSION SCREEN: Regarding diet, feeding , and swallowing, he was taking a regular diet with thin liquids and required supervision and assistance with meals. For grooming, he required set up with voice cues. For dressing, he required minimal assistance and voice cues for upper body, and moderate assistance with voice cues for lower body. When he crossed his legs to don shoes and socks, he had loss of balance to the right. He was unable to get his sock over his toes. Regarding toileting, self-care was done with moderate assistance and voice cuing. Regarding bladder, he had rare incontinence. Regarding bowel, he was continent. Bed mobility was accomplished with moderate assistance and voice cuing. Transfers were done with minimal to moderate assistance with voice cuing and balance assistance to come to midline using a front-wheeled walker. Balance sitting, required standby assist to moderate assistance with voice cues. For standing balance, he was retropulsive initially. Endurance was fair. Regarding gait, he had freezing x3, and a festinating gait was noteded by Physical Therapy. Regarding cognition, he was noted to have moderate impairment in attention, memory, orientation, problem solving, and reasoning. IMPRESSION: Mr. Fong is an 85-year-old man who was hospitalized after an episode of loss of consciousness which lasted 8 minutes. He was disoriented and combative once he regained consciousness. Differential diagnosis includes seizure, and indeed he was low on his valproic acid level, versus sleep attack related to vascular parkinsonism. He was loaded with valproic acid, and he was started on Sinemet as a treatment for the vascular parkinsonism. He was assessed by therapy staff and found to be in need of rehabilitative services regarding mobility, activities of daily living, and cognition, and so he was appropriate for transfer to inpatient rehabilitation. He has comorbid conditions including hypertension, right bundle branch, proteinuria, cerebrovascular disease, diabetes mellitus type 2, and benign prostatic hypertrophy. His goal is to return to [facility], but likely at the assisted living level rather than independent. For a safe discharge, he will need to establish independence with grooming, eating, and bed mobility. It is expected he will achieve modified independence for transfers. He will ambulate with a front- wheeled walker for household distances. It is likely that he will continue to require assistance for bathing, household management, and meal preparation. He will receive therapies with Physical Therapy, Occupational Therapy, and Speech Pathology on a modified schedule for 30-60 minutes per day for each discipline on 5-7 days per week. His expected duration of stay is 10-14 days. It is anticipated that upon discharge, he will continue to benefit from home health services, including nursing, home health aide, occupational therapy, and physical therapy. ASSESSMENT AND PLAN: 1. Debility following hospitalization with vascular parkinsonism contributing with poor initiation and bradykinesia. He has been started on Sinemet and this can be titrated gradually, and he will have active therapy with physical and occupational therapies to optimize his mobility and activities of daily living while assessing for response to a titration of Sinemet. 2. Cognitive impairment. He will be assessed and treated per Speech and Language Pathology. 3. Hypertension. Per notes from the hospitalization, this has been quite labile. He was not orthostatic, however. Blood pressure will be monitored and medications adjusted as indicated. 4. Seizure disorder. He had a loading dose of valproic acid IV. He is continued on an oral dose. It is unclear whether this has been titrated and also unclear the extent to which he was compliant prior to his admission. His valproic acid level will be rechecked in the morning. 5. Benign prostatic hypertrophy. He will be continued on finasteride and tamsulosin. 6. Diabetes mellitus type 2. He will be continued on metformin. 7. Dyslipidemia. Continue atorvastatin and omega-3 fatty acids. 8. Prophylaxis: Enoxaparin will be administered as well as GRZEGORZ hose and sequential compression devices on the legs until his mobility improves. 9. Code status was discussed. The patient prefers full code. /[id number]/MODL MTDD
[2016-05-07] MEDS: DIVALPROEX ER 500 MG TAB PO SCH (20:01)
[2016-05-07] MEDS: ATORVASTATIN CALCIUM 40 MG TAB PO SCH (20:01)
[2016-05-08] MEDS ORDERED: Herbals/Supplements -Info Only PO SCH (09:00)
[2016-05-08] MEDS ORDERED: CARBIDOPA/LEVODOPA 25 MG/100 MG TAB PO SCH (09:00)
[2016-05-08] MEDS: BISOPROLOL FUMARATE 5 MG TAB PO SCH (09:01)
[2016-05-08] MEDS: ASPIRIN EC 81 MG TAB PO SCH (09:01)
[2016-05-08] MEDS: DOCUSATE SODIUM 100 MG CAP PO SCH (09:03)
[2016-05-08] MEDS: EPLERENONE 25 MG TAB PO SCH (09:03)
[2016-05-08] MEDS: ENOXAPARIN 40 MG/0.4 ML SYR SC SCH (09:03)
[2016-05-08] MEDS: FINASTERIDE 5 MG TAB PO SCH (09:04)
[2016-05-08] MEDS: LISINOPRIL 40 MG TAB PO SCH (09:04)
[2016-05-08] MEDS: metFORMIN SR 500 MG TAB PO SCH (09:05)
[2016-05-08] MEDS: OMEGA-3 FATTY ACIDS 1,000 MG CAP PO SCH (09:06)
[2016-05-08] MEDS: TAMSULOSIN HCL 0.4 MG CAP PO SCH (09:06)
--- NOTE | 2016-05-08 09:11 | SOAPPROG ---
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 Sinemet started in the acute hospital at 1/2 tab QD; increase to TID starting 05/08/16. PT and OT to optimize mobility and ADLs, and to monitor for response to Sinemet. * Cognitive impairment. He will be assessed and treated per Speech and Language Pathology. * Hypertension. Per notes from the hospitalization, this has been quite labile. He was not orthostatic, however. Blood pressure elevated yesterday evening and amlodipine added at 2.5 mg QHS. If remains significantly elevated, e.g. > 160/100, will increase amlodipine to 5 mg. * Seizure disorder. He had a loading dose of valproic acid IV. He is continued on an oral dose. VPA level low on labs 05/08/16: increase from 500 mg QHS to 250 mg QAM and 5oo mg QHS. Recheck 05/11/16. * Benign prostatic hypertrophy. Continue finasteride and tamsulosin. Nocturia last night: check UA. PVR was 192. * Diabetes mellitus type 2. Continue metformin. * Dyslipidemia. Continue atorvastatin and omega-3 fatty acids. * Prophylaxis: Enoxaparin will be administered as well as GRZEGORZ hose and sequential compression devices on the legs until his mobility improves. 05/08/16 10:09 Subjective: No complaints. Says sleep was interrupted by frequent urination. Denies dysuria, f/c, cough/dyspnea. has not noted any effect of Sinemet. Objective: Vital Signs Temp Pulse Resp BP Pulse Ox 36.6 C 65 18 168/91 H 91 L 05/08/16 05:45 05/08/16 09:01 05/08/16 05:45 05/08/16 09:04 05/08/16 05:45 05/07/16 05/08/16 05/09/16 05:59 05:59 05:59 Intake Total 600 Output Total 1050 Balance -450 Physical Exam - Physical Exam General Appearance: WD/WN, alert, no apparent distress Respiratory: normal breath sounds, No crackles, No rhonchi, No wheezing Cardiac/Chest: regular rate, rhythm, No edema Skin: normal color, warm/dry Neuro/Psych: alert, normal mood/affect ICD10 Worksheet Patient Problems: Problems Problem Status Onset Altered mental status Acute Back pain Acute Multiple falls Acute
--- NOTE | 2016-05-08 09:12 | PDOREHIP ---
Admission [facility] - Admission - 3 Day Assessment Period Admission Date/Day 1: 05/07/16 Day 2: 05/08/16 Day 3: 05/09/16 - Active Diagnoses Comorbidities and Co-existing Conditions at Admission: 40499. DM (e.g. diabetic retinopathy, nephropathy, and neuropathy) - Skin Conditions Unhealed Pressure Ulcer (1 or more/Stage 1 or >)-Admission: 0. No
[2016-05-08 09:29] LABS: ALANINE AMINOTRANSFERASE 33 IU/L (21-72); ALBUMIN 3.7 g/dL (3.5-5.0); ALKALINE PHOSPHATASE 42 IU/L (38-126); ASPARTATE AMINOTRANSFERASE 21 IU/L (17-59); BILIRUBIN-CONJUGATED 0.4 mg/dL (0.0-0.5); BILIRUBIN-UNCONJUGATED 0.6 mg/dL (0.0-1.1); TOTAL PROTEIN 6.4 g/dL (6.3-8.2)
[2016-05-08] MEDS: DIVALPROEX NA 250 MG TAB PO SCH (11:21)
[2016-05-08 14:00] LABS: COLOR YELLOW; LEUKOCYTE ESTERASE,URINE NEGATIVE (NEGATIVE); NITRITE,URINE NEGATIVE (NEGATIVE)
[2016-05-08 14:12] LABS: BACTERIA NONE SEEN /hpf (NONE SEEN); MUCUS TRACE /lpf (NONE-1+); RBC,URINE 50-182 /hpf (0-3)
--- NOTE | 2016-05-08 14:16 | HOSPPROG ---
Hospitalist Progress Note Assessment/Plan: Received call from micro that CSF culture growing 1+ GPR (probably p. acnes) on day 4 s/p LP, which demonstrated 0 WBCs in tube 4. Discussed with ID on-call (Dr. Diaz), our conclusion is that this represents contaminant and does not require further work up or anti-microbial tx. No formal ID consultation required at this time. Objective: Vital Signs Temp Pulse Resp BP Pulse Ox 36.6 C 65 18 168/91 H 91 L 05/08/16 05:45 05/08/16 09:01 05/08/16 05:45 05/08/16 09:04 05/08/16 05:45 05/07/16 05/08/16 05/09/16 05:59 05:59 05:59 Intake Total 600 540 Output Total 1050 Balance -450 540 ICD10 Worksheet Patient Problems: Problems Problem Status Onset Altered mental status Acute Back pain Acute Multiple falls Acute
[2016-05-08] MEDS: CARBIDOPA/LEVODOPA 25 MG/100 MG TAB PO SCH ×2 (16:28→21:34)
[2016-05-08] MEDS: DIVALPROEX ER 500 MG TAB PO SCH (20:54)
[2016-05-08] MEDS: ATORVASTATIN CALCIUM 40 MG TAB PO SCH (20:54)
[2016-05-09] MEDS: OMEGA-3 FATTY ACIDS 1,000 MG CAP PO SCH (08:52)
[2016-05-09] MEDS: DOCUSATE SODIUM 100 MG CAP PO SCH (08:53)
[2016-05-09] MEDS: CARBIDOPA/LEVODOPA 25 MG/100 MG TAB PO SCH ×3 (08:53→21:36)
[2016-05-09] MEDS: ASPIRIN EC 81 MG TAB PO SCH (08:53)
[2016-05-09] MEDS: metFORMIN SR 500 MG TAB PO SCH (08:53)
[2016-05-09] MEDS: FINASTERIDE 5 MG TAB PO SCH (08:53)
[2016-05-09] MEDS: LISINOPRIL 40 MG TAB PO SCH (08:53)
[2016-05-09] MEDS: EPLERENONE 25 MG TAB PO SCH (08:53)
[2016-05-09] MEDS: DIVALPROEX NA 250 MG TAB PO SCH (08:53)
[2016-05-09] MEDS: TAMSULOSIN HCL 0.4 MG CAP PO SCH (08:53)
[2016-05-09] MEDS: BISOPROLOL FUMARATE 5 MG TAB PO SCH (08:53)
[2016-05-09] MEDS: ENOXAPARIN 40 MG/0.4 ML SYR SC SCH (08:54)
--- NOTE | 2016-05-09 17:04 | SOAPPROG ---
SOAP Progress Note Assessment/Plan: 85 yo M s/p syncopal episode of unclear etiology, possible seizure, possible sleep attack, with vascular parkinsonism: * Debility following hospitalization with vascular parkinsonism contributing with poor initiation and bradykinesia. Sinemet started in the acute hospital at 1/2 tab QD; increase to TID starting 05/08/16. PT and OT to optimize mobility and ADLs, and to monitor for response to Sinemet. * Cognitive impairment. He will be assessed and treated per Speech and Language Pathology. * Hypertension. Per notes from the hospitalization, this has been quite labile. He was not orthostatic, however. Blood pressure elevated yesterday evening and amlodipine added at 2.5 mg QHS. Still significantly elevated, e.g. > 160/100, will increase amlodipine to 5 mg tonight. * Seizure disorder. He had a loading dose of valproic acid IV. He is continued on an oral dose. VPA level low on labs 05/08/16: increase from 500 mg QHS to 250 mg QAM and 5oo mg QHS. Recheck 05/11/16. * Benign prostatic hypertrophy. Continue finasteride and tamsulosin. Nocturia last night: check UA. PVR was 192. * Diabetes mellitus type 2. Continue metformin. * Dyslipidemia. Continue atorvastatin and omega-3 fatty acids. * Prophylaxis: Enoxaparin will be administered as well as GRZEGORZ hose and sequential compression devices on the legs until his mobility improves. Subjective: No events. No complaints today. Denies FLEMING, lightheadedness, pain. Objective: Vital Signs Temp Pulse Resp BP Pulse Ox 36.6 C 64 16 143/100 H 92 05/09/16 06:16 05/09/16 08:53 05/09/16 06:16 05/09/16 08:53 05/09/16 06:16 05/08/16 05/09/16 05/10/16 05:59 05:59 05:59 Intake Total 600 990 850 Output Total 1050 800 200 Balance -450 190 650 - Pending Discharge Pending Discharge Within 24 Hours: No Pending Discharge Within 48 Hours: No Physical Exam - Physical Exam General Appearance: alert, no apparent distress Neck: supple Respiratory: lungs clear, normal breath sounds Cardiac/Chest: regular rate, rhythm Abdomen: normal bowel sounds, non-tender Skin: normal color Neuro/Psych: alert, normal mood/affect, oriented x 3, No speech abnormalities ICD10 Worksheet Patient Problems: Problems Problem Status Onset Altered mental status Acute Back pain Acute Multiple falls Acute
[2016-05-09] MEDS: DIVALPROEX ER 500 MG TAB PO SCH (20:22)
[2016-05-09] MEDS: ATORVASTATIN CALCIUM 40 MG TAB PO SCH (20:22)
[2016-05-09] MEDS: amLODIPine BESYLATE 5 MG TAB PO SCH (20:22)
[2016-05-10] MEDS ORDERED: amLODIPine BESYLATE 5 MG TAB PO SCH (09:00)
[2016-05-10] MEDS: DIVALPROEX NA 250 MG TAB PO SCH (09:18)
[2016-05-10] MEDS: ENOXAPARIN 40 MG/0.4 ML SYR SC SCH (09:18)
[2016-05-10] MEDS: DOCUSATE SODIUM 100 MG CAP PO SCH (09:18)
[2016-05-10] MEDS: LISINOPRIL 40 MG TAB PO SCH (09:18)
[2016-05-10] MEDS: CARBIDOPA/LEVODOPA 25 MG/100 MG TAB PO SCH ×3 (09:18→22:27)
[2016-05-10] MEDS: ASPIRIN EC 81 MG TAB PO SCH (09:18)
[2016-05-10] MEDS: EPLERENONE 25 MG TAB PO SCH (09:19)
[2016-05-10] MEDS: FINASTERIDE 5 MG TAB PO SCH (09:19)
[2016-05-10] MEDS: metFORMIN SR 500 MG TAB PO SCH (09:19)
[2016-05-10] MEDS: OMEGA-3 FATTY ACIDS 1,000 MG CAP PO SCH (09:19)
[2016-05-10] MEDS: BISOPROLOL FUMARATE 5 MG TAB PO SCH (09:19)
[2016-05-10] MEDS: TAMSULOSIN HCL 0.4 MG CAP PO SCH (09:19)
--- NOTE | 2016-05-10 14:12 | SOAPPROG ---
SOAP Progress Note Assessment/Plan: 85 yo M s/p syncopal episode of unclear etiology, possible seizure, possible sleep attack, with vascular parkinsonism: * Debility following hospitalization with vascular parkinsonism contributing with poor initiation and bradykinesia. Sinemet started in the acute hospital at 1/2 tab QD; increase to TID starting 05/08/16. PT and OT to optimize mobility and ADLs, and to monitor for response to Sinemet. * Cognitive impairment. He will be assessed and treated per Speech and Language Pathology. * Hypertension. Per notes from the hospitalization, this has been quite labile. He was not orthostatic, however. Blood pressure elevated yesterday evening and amlodipine added at 2.5 mg QHS. Still significantly elevated, increased amlodipine to 5 mg 05/09 * Seizure disorder. He had a loading dose of valproic acid IV. He is continued on an oral dose. VPA level low on labs 05/08/16: increase from 500 mg QHS to 250 mg QAM and 5oo mg QHS. Recheck 05/11/16. * Benign prostatic hypertrophy. Continue finasteride and tamsulosin. Nocturia last night: check UA. PVR was 192. * Diabetes mellitus type 2. Continue metformin. * Dyslipidemia. Continue atorvastatin and omega-3 fatty acids. * Prophylaxis: Enoxaparin will be administered as well as GRZEGORZ hose and sequential compression devices on the legs until his mobility improves. Subjective: no events. no complaints, was happy to drink some wine and have oysters last night. Objective: Vital Signs Temp Pulse Resp BP Pulse Ox 36.8 C 69 16 149/83 H 96 05/10/16 08:00 05/10/16 09:19 05/10/16 08:00 05/10/16 09:19 05/10/16 08:00 05/09/16 05/10/16 05/11/16 05:59 05:59 05:59 Intake Total 990 850 480 Output Total 800 400 Balance 190 450 480 - Pending Discharge Pending Discharge Within 24 Hours: No Pending Discharge Within 48 Hours: No Physical Exam - Physical Exam General Appearance: alert, no apparent distress Neck: supple Respiratory: normal breath sounds Cardiac/Chest: regular rate, rhythm Abdomen: normal bowel sounds, non-tender Skin: normal color, warm/dry Neuro/Psych: alert, normal mood/affect, oriented x 3 ICD10 Worksheet Patient Problems: Problems Problem Status Onset Altered mental status Acute Back pain Acute Multiple falls Acute
[2016-05-10] MEDS: DIVALPROEX ER 500 MG TAB PO SCH (20:14)
[2016-05-10] MEDS: ATORVASTATIN CALCIUM 40 MG TAB PO SCH (20:14)
[2016-05-10] MEDS: amLODIPine BESYLATE 5 MG TAB PO SCH (20:15)
[2016-05-10] MEDS ORDERED: CARBIDOPA/LEVO CR 25 MG/100 MG TAB PO ONE (22:20)
[2016-05-11] MEDS: LISINOPRIL 40 MG TAB PO SCH (06:32)
[2016-05-11] MEDS: ENOXAPARIN 40 MG/0.4 ML SYR SC SCH (08:20)
[2016-05-11] MEDS: DIVALPROEX NA 250 MG TAB PO SCH (08:21)
[2016-05-11] MEDS: metFORMIN SR 500 MG TAB PO SCH (08:21)
[2016-05-11] MEDS: FINASTERIDE 5 MG TAB PO SCH (08:21)
[2016-05-11] MEDS: OMEGA-3 FATTY ACIDS 1,000 MG CAP PO SCH (08:21)
[2016-05-11] MEDS: DOCUSATE SODIUM 100 MG CAP PO SCH (08:21)
[2016-05-11] MEDS: BISOPROLOL FUMARATE 5 MG TAB PO SCH (08:22)
[2016-05-11] MEDS: EPLERENONE 25 MG TAB PO SCH (08:22)
[2016-05-11] MEDS: ASPIRIN EC 81 MG TAB PO SCH (08:22)
[2016-05-11] MEDS: CARBIDOPA/LEVODOPA 25 MG/100 MG TAB PO SCH ×3 (08:22→22:03)
[2016-05-11] MEDS: TAMSULOSIN HCL 0.4 MG CAP PO SCH (08:23)
--- NOTE | 2016-05-11 13:48 | SOAPPROG ---
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 Sinemet started in the acute hospital at 1/2 tab QD; increased to 11/2 tab TID starting 05/08/16; increase furhter to 1 tab TID starting 05/11/16 Ambulated 270' FWW and cues. Has LOB retropulsive and no corrective reflexes. Min A for ADLs. PT and OT to optimize mobility and ADLs, and to monitor for response to Sinemet. * Cognitive impairment. Significantly impaired memory and problem solving. Continue Speech and Language Pathology. * Hypertension. Per notes from the hospitalization, this has been quite labile. He was not orthostatic, however. Amlodipine added at 2.5 mg QHS on ; titrated to 5 mg on 05/10/16. Continue to monitor. * Seizure disorder. He had a loading dose of valproic acid IV. He is continued on an oral dose. VPA level low on labs 05/08/16: increase from 500 mg QHS to 250 mg QAM and 5oo mg QHS. Low at 44 on 05/11/16; increase further to 500 mg BID starting 05/12/16. * Benign prostatic hypertrophy. Continue finasteride and tamsulosin. Nocturia last night: check UA. PVR was 192. * Diabetes mellitus type 2. Continue metformin. * Dyslipidemia. Continue atorvastatin and omega-3 fatty acids. * Prophylaxis: Enoxaparin will be administered as well as GRZEGORZ hose and sequential compression devices on the legs until his mobility improves. Attended staffing, 15 min. D/W case mgmt, nursing, PT, OT, OPERATIONAL TEST MECHANIC, Tentative discharge date of 05/22/16. Likely to need extra help at home. 05/11/16 13:41 Subjective: No complaints. Working with PT. Not in pain. Objective: Vital Signs Temp Pulse Resp BP Pulse Ox 36.8 C 67 17 159/99 H 94 05/11/16 06:30 05/11/16 08:22 05/11/16 06:30 05/11/16 08:22 05/11/16 06:30 05/10/16 05/11/16 05/12/16 05:59 05:59 05:59 Intake Total 850 1080 716 Output Total 400 400 Balance 450 069 716 - Time Spent With Patient Time Spent With Patient: Greater than 35 minutes floor time today, including more than 50% of time in coordination of care during staffing meeting, and counseling patient. Physical Exam - Physical Exam General Appearance: WD/WN, alert, no apparent distress Respiratory: normal breath sounds, No crackles, No rhonchi, No wheezing Cardiac/Chest: regular rate, rhythm, No edema Neuro/Psych: no motor/sensory deficits, alert, normal mood/affect, abnormal gait (Short steps, flexed posture, with FWW, PT assisting CGA) ICD10 Worksheet Patient Problems: Problems Problem Status Onset Altered mental status Acute Back pain Acute Multiple falls Acute
[2016-05-11] MEDS: amLODIPine BESYLATE 5 MG TAB PO SCH (20:30)
[2016-05-11] MEDS: ATORVASTATIN CALCIUM 40 MG TAB PO SCH (20:30)
[2016-05-11] MEDS: DIVALPROEX ER 500 MG TAB PO SCH (20:31)
[2016-05-12] MEDS: ASPIRIN EC 81 MG TAB PO SCH (10:21)
[2016-05-12] MEDS: EPLERENONE 25 MG TAB PO SCH (10:21)
[2016-05-12] MEDS: OMEGA-3 FATTY ACIDS 1,000 MG CAP PO SCH (10:22)
[2016-05-12] MEDS: metFORMIN SR 500 MG TAB PO SCH (10:22)
[2016-05-12] MEDS: TAMSULOSIN HCL 0.4 MG CAP PO SCH (10:22)
[2016-05-12] MEDS: LISINOPRIL 40 MG TAB PO SCH (10:23)
[2016-05-12] MEDS: FINASTERIDE 5 MG TAB PO SCH (10:25)
[2016-05-12] MEDS: ENOXAPARIN 40 MG/0.4 ML SYR SC SCH (10:25)
[2016-05-12] MEDS: DOCUSATE SODIUM 100 MG CAP PO SCH (10:25)
[2016-05-12] MEDS: DIVALPROEX NA 500 MG TAB PO SCH (10:25)
[2016-05-12] MEDS: CARBIDOPA/LEVODOPA 25 MG/100 MG TAB PO SCH ×3 (10:26→22:33)
[2016-05-12] MEDS: BISOPROLOL FUMARATE 5 MG TAB PO SCH (10:26)
--- NOTE | 2016-05-12 15:18 | SOAPPROG ---
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 Sinemet started in the acute hospital at 1/2 tab QD; increased to 11/2 tab TID starting 05/08/16; increase furhter to 1 tab TID starting 05/11/16. Ambulated 270' FWW and cues. Has LOB retropulsive and no corrective reflexes. Min A for ADLs. PT and OT to optimize mobility and ADLs, improving with increased Sinemet? * Cognitive impairment. Significantly impaired memory and problem solving. Continue Speech and Language Pathology. * Hypertension. Per notes from the hospitalization, this has been quite labile. He was not orthostatic, however. Amlodipine added at 2.5 mg QHS on ; titrated to 5 mg on 05/10/16. Increase to 7.5 mg QHS on 05/12/16. Continue to monitor. * Seizure disorder. He had a loading dose of valproic acid IV. He is continued on an oral dose. VPA level low on labs 05/08/16: increase from 500 mg QHS to 250 mg QAM and 5oo mg QHS. Low at 44 on 05/11/16; increase further to 500 mg BID starting 05/12/16. * Benign prostatic hypertrophy. Continue finasteride and tamsulosin. Nocturia last night: check UA. PVR was 192. * Diabetes mellitus type 2. Continue metformin. * Dyslipidemia. Continue atorvastatin and omega-3 fatty acids. * Prophylaxis: Enoxaparin will be administered as well as GRZEGORZ hose and sequential compression devices on the legs until his mobility improves. Tentative discharge date of 05/22/16. Likely to need extra help at home. 05/12/16 15:17 Subjective: No complaints. Does not notice any side effects from Sinemet. PT notes he's walking better. Objective: Vital Signs Temp Pulse Resp BP Pulse Ox 36.7 C 68 18 160/74 H 93 05/12/16 07:27 05/12/16 10:26 05/12/16 07:27 05/12/16 10:05/12/16 07:27 05/11/16 05/12/16 05/13/16 05:59 05:59 05:59 Intake Total 5531 822 2549 Output Total 400 950 Balance 680 -34 1000 Physical Exam - Physical Exam General Appearance: WD/WN, alert, no apparent distress Respiratory: No normal breath sounds, No respiratory distress Skin: normal color, warm/dry Neuro/Psych: no motor/sensory deficits, alert, normal mood/affect, other (No tremor, nmo dyskinesias.) ICD10 Worksheet Patient Problems: Problems Problem Status Onset Altered mental status Acute Back pain Acute Multiple falls Acute
[2016-05-12] MEDS: amLODIPine BESYLATE 5 MG TAB PO SCH (19:58)
[2016-05-12] MEDS: DIVALPROEX ER 500 MG TAB PO SCH (20:02)
[2016-05-12] MEDS: ATORVASTATIN CALCIUM 40 MG TAB PO SCH (20:02)
[2016-05-13] MEDS: OMEGA-3 FATTY ACIDS 1,000 MG CAP PO SCH (09:03)
[2016-05-13] MEDS: ENOXAPARIN 40 MG/0.4 ML SYR SC SCH (09:03)
[2016-05-13] MEDS: ASPIRIN EC 81 MG TAB PO SCH (09:03)
[2016-05-13] MEDS: BISOPROLOL FUMARATE 5 MG TAB PO SCH (09:03)
[2016-05-13] MEDS: EPLERENONE 25 MG TAB PO SCH (09:04)
[2016-05-13] MEDS: DIVALPROEX NA 500 MG TAB PO SCH (09:05)
[2016-05-13] MEDS: TAMSULOSIN HCL 0.4 MG CAP PO SCH (09:05)
[2016-05-13] MEDS: CARBIDOPA/LEVODOPA 25 MG/100 MG TAB PO SCH ×3 (09:06→22:09)
[2016-05-13] MEDS: metFORMIN SR 500 MG TAB PO SCH (09:06)
[2016-05-13] MEDS: FINASTERIDE 5 MG TAB PO SCH (09:06)
[2016-05-13] MEDS: LISINOPRIL 40 MG TAB PO SCH (09:06)
[2016-05-13] MEDS: DOCUSATE SODIUM 100 MG CAP PO SCH (09:07)
--- NOTE | 2016-05-13 17:56 | SOAPPROG ---
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 Sinemet started in the acute hospital at 1/2 tab QD; increased to 11/2 tab TID starting 05/08/16; increase further to 1 tab TID starting 05/11/16. Ambulated 270' FWW and cues. Has LOB retropulsive and no corrective reflexes. Min A for ADLs. PT and OT to optimize mobility and ADLs, improving with increased Sinemet? * Cognitive impairment. Significantly impaired memory and problem solving. Continue Speech and Language Pathology. * Hypertension. Per notes from the hospitalization, this has been quite labile. He was not orthostatic, however. Amlodipine added at 2.5 mg QHS on ; titrated to 5 mg on 05/10/16. Increase to 7.5 mg QHS on 05/12/16. Continue to monitor. * Seizure disorder. He had a loading dose of valproic acid IV. He is continued on an oral dose. VPA level low on labs 05/08/16: increase from 500 mg QHS to 250 mg QAM and 5oo mg QHS. Low at 44 on 05/11/16; increase further to 500 mg BID starting 05/12/16. * Benign prostatic hypertrophy. Continue finasteride and tamsulosin. Nocturia last night: check UA. PVR was 192. * Diabetes mellitus type 2. Continue metformin. * Dyslipidemia. Continue atorvastatin and omega-3 fatty acids. * Prophylaxis: Enoxaparin will be administered as well as GRZEGORZ hose and sequential compression devices on the legs until his mobility improves. Tentative discharge date of 05/22/16. Likely to need extra help at home. 05/13/16 17:55 Subjective: Mr. Vallejo reports an excellent visit with his today, who is on hospice. "She was in great shape." No complaints, reports feeling content. Not sure if mobility is improved on Sinemet; denies noticing any adverse effects. Objective: Vital Signs Temp Pulse Resp BP Pulse Ox 36.6 C 68 16 168/70 H 92 05/13/16 05:33 05/13/16 09:03 05/13/16 05:33 05/13/16 09:06 05/13/16 05:33 05/12/16 05/13/16 05/14/16 05:59 05:59 05:59 Intake Total 916 1495 472 Output Total 238 625 150 Balance -34 865 322 Physical Exam - Physical Exam General Appearance: WD/WN, alert, no apparent distress Respiratory: normal breath sounds, No crackles, No rhonchi, No wheezing Cardiac/Chest: regular rate, rhythm, No edema Neuro/Psych: alert, normal mood/affect, oriented x 3 ICD10 Worksheet Patient Problems: Problems Problem Status Onset Altered mental status Acute Back pain Acute Multiple falls Acute
[2016-05-13] MEDS: DIVALPROEX ER 500 MG TAB PO SCH (22:09)
[2016-05-13] MEDS: amLODIPine BESYLATE 5 MG TAB PO SCH (22:10)
[2016-05-13] MEDS: ATORVASTATIN CALCIUM 40 MG TAB PO SCH (22:12)
[2016-05-14] MEDS: ASPIRIN EC 81 MG TAB PO SCH (08:54)
[2016-05-14] MEDS: BISOPROLOL FUMARATE 5 MG TAB PO SCH (08:55)
[2016-05-14] MEDS: CARBIDOPA/LEVODOPA 25 MG/100 MG TAB PO SCH ×3 (08:56→20:41)
[2016-05-14] MEDS: DIVALPROEX NA 500 MG TAB PO SCH (08:56)
[2016-05-14] MEDS: EPLERENONE 25 MG TAB PO SCH (08:57)
[2016-05-14] MEDS: ENOXAPARIN 40 MG/0.4 ML SYR SC SCH (08:57)
[2016-05-14] MEDS: DOCUSATE SODIUM 100 MG CAP PO SCH (08:57)
[2016-05-14] MEDS: LISINOPRIL 40 MG TAB PO SCH (08:58)
[2016-05-14] MEDS: metFORMIN SR 500 MG TAB PO SCH (08:58)
[2016-05-14] MEDS: FINASTERIDE 5 MG TAB PO SCH (08:58)
[2016-05-14] MEDS: OMEGA-3 FATTY ACIDS 1,000 MG CAP PO SCH (08:59)
[2016-05-14] MEDS: TAMSULOSIN HCL 0.4 MG CAP PO SCH (08:59)
--- NOTE | 2016-05-14 10:32 | SOAPPROG ---
SOAP Progress Note Assessment/Plan: A/P: 85 yo M s/p syncopal episode of unclear etiology, possible seizure, possible sleep attack, with vascular parkinsonism. Patient is new to me today 05/14/2016, doing well overall, patient notices no change in parkinonism symptoms with changes in medications, we will continue to monitor through therapies today and keep present dose of sinemet. Remainder of plan below is unchanged. 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 Sinemet started in the acute hospital at 1/2 tab QD; increased to 11/2 tab TID starting 05/08/16; increase further to 1 tab TID starting 05/11/16. Ambulated 270' FWW and cues. Has LOB retropulsive and no corrective reflexes. Min A for ADLs. PT and OT to optimize mobility and ADLs, unclear if improving with increased Sinemet, continue to monitor. * Cognitive impairment. Significantly impaired memory and problem solving. Continue Speech and Language Pathology. * Hypertension. Per notes from the hospitalization, this has been quite labile. He was not orthostatic, however. Amlodipine added at 2.5 mg QHS on ; titrated to 5 mg on 05/10/16. Increase to 7.5 mg QHS on 05/12/16. Continue to monitor, stable but mildly hypertensive 05/14/2016 no changes to medications. * Seizure disorder. He had a loading dose of valproic acid IV. He is continued on an oral dose. VPA level low on labs 05/08/16: increase from 500 mg QHS to 250 mg QAM and 5oo mg QHS. Low at 44 on 05/11/16; increase further to 500 mg BID starting 05/12/16. Monitoring. * Benign prostatic hypertrophy. Continue finasteride and tamsulosin. PVR was 192 prior nights. Monitor * Diabetes mellitus type 2. Continue metformin. * Dyslipidemia. Continue atorvastatin and omega-3 fatty acids. * Prophylaxis: Enoxaparin will be administered as well as GRZEGORZ hose and sequential compression devices on the legs until his mobility improves. Tentative discharge date of 05/22/16. Likely to need extra help at home. 05/14/16 10:28 05/14/16 10:38 Subjective: CC: Parkinsonian symptoms and response to medications No acute events overnight. Pt reports no subjective changes with modifications to PD medications. Endorses continued slow movements and impaired mobility. No other barriers identified by the patient to therapies, sleeping well, good appetite, mood is good, no pain. He has not worked with therapies yet today. No lightheadedness. Objective: Vital Signs Temp Pulse Resp BP Pulse Ox 36.6 C 62 16 152/72 H 92 05/14/16 06:34 05/14/16 08:55 05/14/16 06:34 05/14/16 08:58 05/14/16 06:34 05/13/16 05/14/16 05/15/16 05:59 05:59 05:59 Intake Total 1490 948 250 Output Total 625 875 Balance 865 73 250 Physical Exam - Physical Exam General Appearance: alert, no apparent distress EENT: No scleral icterus (R), No scleral icterus (L) Respiratory: normal breath sounds, No respiratory distress, No accessory muscle use, No wheezing Cardiac/Chest: normal peripheral pulses, regular rate, rhythm, No edema, No irregularly irregular Peripheral Pulses: 2+: carotid (R), carotid (L), femoral (R), femoral (L), dorsalis-pedis (R), dorsalis-pedis (L) Abdomen: normal bowel sounds, non-tender, soft Skin: normal color, warm/dry, No cyanosis Extremities: No calf tenderness, No swelling Neuro/Psych: alert, normal mood/affect ICD10 Worksheet Patient Problems: Problems Problem Status Onset Altered mental status Acute Back pain Acute Multiple falls Acute
[2016-05-14] MEDS: DIVALPROEX ER 500 MG TAB PO SCH (20:39)
[2016-05-14] MEDS: amLODIPine BESYLATE 5 MG TAB PO SCH (20:40)
[2016-05-14] MEDS: ATORVASTATIN CALCIUM 40 MG TAB PO SCH (20:42)
[2016-05-15] MEDS: FINASTERIDE 5 MG TAB PO SCH (09:35)
[2016-05-15] MEDS: TAMSULOSIN HCL 0.4 MG CAP PO SCH (09:35)
[2016-05-15] MEDS: DIVALPROEX NA 500 MG TAB PO SCH (09:35)
[2016-05-15] MEDS: metFORMIN SR 500 MG TAB PO SCH (09:37)
[2016-05-15] MEDS: OMEGA-3 FATTY ACIDS 1,000 MG CAP PO SCH (09:37)
[2016-05-15] MEDS: EPLERENONE 25 MG TAB PO SCH (09:38)
[2016-05-15] MEDS: CARBIDOPA/LEVODOPA 25 MG/100 MG TAB PO SCH ×3 (09:39→21:32)
[2016-05-15] MEDS: LISINOPRIL 40 MG TAB PO SCH (09:39)
[2016-05-15] MEDS: BISOPROLOL FUMARATE 5 MG TAB PO SCH (09:39)
[2016-05-15] MEDS: ASPIRIN EC 81 MG TAB PO SCH (09:40)
[2016-05-15] MEDS: DOCUSATE SODIUM 100 MG CAP PO SCH (09:40)
[2016-05-15] MEDS: ENOXAPARIN 40 MG/0.4 ML SYR SC SCH (09:41)
--- NOTE | 2016-05-15 15:03 | SOAPPROG ---
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 Sinemet started in the acute hospital at 1/2 tab QD; increased to 11/2 tab TID starting 05/08/16; increase further to 1 tab TID starting 05/11/16. Has had some improvement in mobility. Ambulated 270' FWW and cues. Has LOB retropulsive and no corrective reflexes. Min A for ADLs. PT and OT to optimize mobility and ADLs. * Cognitive impairment. Significantly impaired memory and problem solving. Continue Speech and Language Pathology. * Hypertension. Per notes from the hospitalization, this has been quite labile. He was not orthostatic, however. Amlodipine added at 2.5 mg QHS on ; titrated to 5 mg on 05/10/16. Increase to 7.5 mg QHS on 05/12/16. Increase further to 10 mg QHS on 05/15/16. Continue to monitor. * Seizure disorder. He had a loading dose of valproic acid IV. He is continued on an oral dose. VPA level low on labs 05/08/16: increase from 500 mg QHS to 250 mg QAM and 5oo mg QHS. Low at 44 on 05/11/16; increase further to 500 mg BID starting 05/12/16. * Benign prostatic hypertrophy. Continue finasteride and tamsulosin. Nocturia last night: check UA. PVR was 192. * Diabetes mellitus type 2. Continue metformin. * Dyslipidemia. Continue atorvastatin and omega-3 fatty acids. * Prophylaxis: Enoxaparin will be administered as well as GRZEGORZ hose and sequential compression devices on the legs until his mobility improves. Tentative discharge date of 05/22/16. Likely to need extra help at home. 05/15/16 15:02 Subjective: No complaints. Thinks he's moving better. Seems to do better in AM and worse in afternoon. No f/c, cough/dyspnea. Denies orthostatic symptoms. Objective: Vital Signs Temp Pulse Resp BP Pulse Ox 36.9 C 56 L 16 149/79 H 94 05/15/16 08:00 05/15/16 08:00 05/15/16 08:00 05/15/16 08:00 05/15/16 08:00 05/14/16 05/15/16 05/16/16 05:59 05:59 05:59 Intake Total 948 500 660 Output Total 565 2960 Balance 73 -950 660 Physical Exam - Physical Exam General Appearance: WD/WN, alert, no apparent distress Respiratory: normal breath sounds, No crackles, No rhonchi, No wheezing Cardiac/Chest: regular rate, rhythm, No edema Skin: normal color, warm/dry Neuro/Psych: alert, normal mood/affect, oriented x 3, abnormal gait (SHort steps , slightly wide base of support. Ascended curb step with FWWwith considerable assistance of arms on walker to straighten leg.) ICD10 Worksheet Patient Problems: Problems Problem Status Onset Altered mental status Acute Back pain Acute Multiple falls Acute
[2016-05-15] MEDS: DIVALPROEX ER 500 MG TAB PO SCH (21:33)
[2016-05-15] MEDS: ATORVASTATIN CALCIUM 40 MG TAB PO SCH (21:33)
[2016-05-16] MEDS: ASPIRIN EC 81 MG TAB PO SCH (09:01)
[2016-05-16] MEDS: DIVALPROEX NA 500 MG TAB PO SCH (09:02)
[2016-05-16] MEDS: DOCUSATE SODIUM 100 MG CAP PO SCH (09:02)
[2016-05-16] MEDS: CARBIDOPA/LEVODOPA 25 MG/100 MG TAB PO SCH ×3 (09:02→21:12)
[2016-05-16] MEDS: EPLERENONE 25 MG TAB PO SCH (09:03)
[2016-05-16] MEDS: metFORMIN SR 500 MG TAB PO SCH (09:03)
[2016-05-16] MEDS: TAMSULOSIN HCL 0.4 MG CAP PO SCH (09:03)
[2016-05-16] MEDS: OMEGA-3 FATTY ACIDS 1,000 MG CAP PO SCH (09:03)
[2016-05-16] MEDS: FINASTERIDE 5 MG TAB PO SCH (09:03)
--- NOTE | 2016-05-16 10:17 | SOAPPROG ---
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 Sinemet started in the acute hospital at 1/2 tab QD; increased to 11/2 tab TID starting 05/08/16; increase further to 1 tab TID starting 05/11/16. Has had some improvement in mobility. Currently CGA /SBA with walker Ambulated 270' FWW and cues. Has LOB retropulsive and no corrective reflexes. No rigidity. Min A for ADLs. PT and OT to optimize mobility and ADLs. * Cognitive impairment. Significantly impaired memory and problem solving. Continue Speech and Language Pathology. * Hypertension. Per notes from the hospitalization, this has been quite labile. He was not orthostatic, however. Amlodipine added at 2.5 mg QHS on ; titrated to 5 mg on 05/10/16. Increase to 7.5 mg QHS on 05/12/16. Increase further to 10 mg QHS on 05/15/16. Continue to monitor. * Seizure disorder. He had a loading dose of valproic acid IV. He is continued on an oral dose. VPA level low on labs 05/08/16: increase from 500 mg QHS to 250 mg QAM and 5oo mg QHS. Low at 44 on 05/11/16; increase further to 500 mg BID starting 05/12/16. * Benign prostatic hypertrophy. Continue finasteride and tamsulosin. Nocturia last night: check UA. PVR was 192. * Diabetes mellitus type 2. Continue metformin. * Dyslipidemia. Continue atorvastatin and omega-3 fatty acids. * Prophylaxis: Enoxaparin will be administered as well as GRZEGORZ hose and sequential compression devices on the legs until his mobility improves. Plan: 05/16/16 10:17 Subjective: No complaints. Reports therapies are progressing well. Objective: Vital Signs Temp Pulse Resp BP Pulse Ox 36.8 C 63 16 137/82 H 93 05/15/16 20:00 05/15/16 20:00 05/15/16 20:00 05/15/16 21:33 05/15/16 20:00 05/15/16 05/16/16 05/17/16 05:59 05:59 05:59 Intake Total 500 1050 472 Output Total 1450 750 Balance -950 300 472 Physical Exam - Physical Exam General Appearance: WD/WN, alert EENT: PERRL/EOMI Respiratory: lungs clear Cardiac/Chest: No edema, No JVD Abdomen: non-tender, soft, No rebound Skin: normal color, warm/dry Neuro/Psych: alert, oriented x 3, abnormal gait ICD10 Worksheet Patient Problems: Problems Problem Status Onset Altered mental status Acute Back pain Acute Multiple falls Acute
[2016-05-16] MEDS: ENOXAPARIN 40 MG/0.4 ML SYR SC SCH (10:43)
[2016-05-16] MEDS: BISOPROLOL FUMARATE 5 MG TAB PO SCH (10:43)
[2016-05-16] MEDS: LISINOPRIL 40 MG TAB PO SCH (12:12)
[2016-05-16] MEDS: DIVALPROEX ER 500 MG TAB PO SCH (19:39)
[2016-05-16] MEDS: ATORVASTATIN CALCIUM 40 MG TAB PO SCH (19:39)
[2016-05-17] MEDS: OMEGA-3 FATTY ACIDS 1,000 MG CAP PO SCH (09:07)
[2016-05-17] MEDS: metFORMIN SR 500 MG TAB PO SCH (09:08)
[2016-05-17] MEDS: DOCUSATE SODIUM 100 MG CAP PO SCH (09:08)
[2016-05-17] MEDS: TAMSULOSIN HCL 0.4 MG CAP PO SCH (09:09)
[2016-05-17] MEDS: DIVALPROEX NA 500 MG TAB PO SCH (09:09)
[2016-05-17] MEDS: EPLERENONE 25 MG TAB PO SCH (09:10)
[2016-05-17] MEDS: ASPIRIN EC 81 MG TAB PO SCH (09:10)
[2016-05-17] MEDS: BISOPROLOL FUMARATE 5 MG TAB PO SCH (09:11)
[2016-05-17] MEDS: LISINOPRIL 40 MG TAB PO SCH (09:11)
[2016-05-17] MEDS: FINASTERIDE 5 MG TAB PO SCH (09:11)
[2016-05-17] MEDS: ENOXAPARIN 40 MG/0.4 ML SYR SC SCH (09:12)
[2016-05-17] MEDS: CARBIDOPA/LEVODOPA 25 MG/100 MG TAB PO SCH ×3 (09:36→20:55)
--- NOTE | 2016-05-17 10:49 | SOAPPROG ---
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 Sinemet started in the acute hospital at 1/2 tab QD; increased to 11/2 tab TID starting 05/08/16; increase further to 1 tab TID starting 05/11/16. Has had some improvement in mobility. Currently CGA /SBA with walker Ambulated 270' FWW and cues. Has LOB retropulsive and no corrective reflexes. No rigidity. Min A for ADLs. PT and OT to optimize mobility and ADLs. * Cognitive impairment. Significantly impaired memory and problem solving. Continue Speech and Language Pathology. * Hypertension. Per notes from the hospitalization, this has been quite labile. He was not orthostatic, however. Amlodipine added at 2.5 mg QHS on ; titrated to 5 mg on 05/10/16. Increase to 7.5 mg QHS on 05/12/16. Increase further to 10 mg QHS on 05/15/16. Continue to monitor. * Seizure disorder. He had a loading dose of valproic acid IV. He is continued on an oral dose. VPA level low on labs 05/08/16: increase from 500 mg QHS to 250 mg QAM and 5oo mg QHS. Low at 44 on 05/11/16; increase further to 500 mg BID starting 05/12/16. * Benign prostatic hypertrophy. Denies dysuria. Continue finasteride and tamsulosin. Nocturia last night: check UA. PVR was 192. * Diabetes mellitus type 2. Continue metformin. * Dyslipidemia. Continue atorvastatin and omega-3 fatty acids. * Prophylaxis: Enoxaparin will be administered as well as GRZEGORZ hose and sequential compression devices on the legs until his mobility improves. Plan: 05/16/16 10:17 05/17/16 10:48 Subjective: No complaints per patient or nursing Objective: Vital Signs Temp Pulse Resp BP Pulse Ox 36.9 C 58 L 16 144/77 H 95 05/17/16 06:48 05/17/16 09:11 05/17/16 06:48 05/17/16 09:11 05/17/16 06:48 05/16/16 05/17/16 05/18/16 05:59 05:59 05:59 Intake Total 8849 198 3830 Output Total 750 350 300 Balance 300 458 706 Physical Exam - Physical Exam General Appearance: WD/WN, alert, no apparent distress Neck: full range of motion, supple Respiratory: lungs clear, normal breath sounds Cardiac/Chest: No edema, No JVD Abdomen: normal bowel sounds, non-tender Skin: normal color, warm/dry Extremities: No swelling, No Maura's sign Neuro/Psych: alert, normal mood/affect, other (No rigidity) ICD10 Worksheet Patient Problems: Problems Problem Status Onset Altered mental status Acute Back pain Acute Multiple falls Acute
[2016-05-17] MEDS: DIVALPROEX ER 500 MG TAB PO SCH (20:55)
[2016-05-17] MEDS: ATORVASTATIN CALCIUM 40 MG TAB PO SCH (20:55)
[2016-05-18] MEDS: BISOPROLOL FUMARATE 5 MG TAB PO SCH (09:13)
[2016-05-18] MEDS: LISINOPRIL 40 MG TAB PO SCH (09:13)
[2016-05-18] MEDS: ASPIRIN EC 81 MG TAB PO SCH (09:13)
[2016-05-18] MEDS: CARBIDOPA/LEVODOPA 25 MG/100 MG TAB PO SCH ×3 (09:13→20:38)
[2016-05-18] MEDS: ENOXAPARIN 40 MG/0.4 ML SYR SC SCH (09:14)
[2016-05-18] MEDS: FINASTERIDE 5 MG TAB PO SCH (09:14)
[2016-05-18] MEDS: TAMSULOSIN HCL 0.4 MG CAP PO SCH (09:14)
[2016-05-18] MEDS: EPLERENONE 25 MG TAB PO SCH (09:14)
[2016-05-18] MEDS: DOCUSATE SODIUM 100 MG CAP PO SCH (09:14)
[2016-05-18] MEDS: OMEGA-3 FATTY ACIDS 1,000 MG CAP PO SCH (09:15)
[2016-05-18] MEDS: metFORMIN SR 500 MG TAB PO SCH (09:15)
[2016-05-18] MEDS: DIVALPROEX NA 500 MG TAB PO SCH (09:18)
--- NOTE | 2016-05-18 10:20 | SOAPPROG ---
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 Sinemet started in the acute hospital at 1/2 tab QD; increased to 11/2 tab TID starting 05/08/16; increase further to 1 tab TID starting 05/11/16. Fim 78 on 05/18/16. Has had some improvement in mobility. Ambulated 270' FWW and cues. Has LOB retropulsive and no corrective reflexes; Hardin balance inventory , very high fall risk. Poor recall of strategies; cannot remember how to approach a chair to sit down safely. Needs constant cueing for ADLs. Spilled urinal.. Otherwise S for ADLs and mobility. Continue PT and OT to optimize mobility and ADLs. * Cognitive impairment. Significantly impaired memory and problem solving. Needs 24 hour supervision. Continue Speech and Language Pathology. * Hypertension. Per notes from the hospitalization, this has been quite labile. He was not orthostatic, however. Adequate control as of 05/18/16 after titration of amlodipine from 2.5 mg to 10 mg, from 05/08/16 to 05/15/16. * Seizure disorder. He had a loading dose of valproic acid IV. He is continued on an oral dose. VPA level low on labs 05/08/16: increase from 500 mg QHS to 250 mg QAM and 5oo mg QHS. Low at 44 on 05/11/16; increase further to 500 mg BID starting 05/12/16. * Sleep abnormality? Advise consideration of sleep study after discharge. * Benign prostatic hypertrophy. Continue finasteride and tamsulosin. Nocturia last night: check UA. PVR was 192. * Diabetes mellitus type 2. Continue metformin. * Dyslipidemia. Continue atorvastatin and omega-3 fatty acids. * Prophylaxis: Enoxaparin will be administered as well as GRZEGORZ hose and sequential compression devices on the legs until his mobility improves. Attended staffing, 15 min. D/W case mgmt, PT, OT, FAMILY CONSUMER SCIENCE FCS TEACHER. Discharge date of . Wants to return to Independent Living. Will need 24 hour supervision. Family conference 05/19/16. Follow-up movement disorder neurologist 05/22/16. 05/18/16 11:51 Subjective: No complaints. Feels he's moving better. Says he had some strange dreams but does not recall the details. Overall sleeping well. Objective: Vital Signs Temp Pulse Resp BP Pulse Ox 37 C 61 16 138/69 H 91 L 05/18/16 07:05 05/18/16 09:13 05/18/16 07:05 05/18/16 09:13 05/18/16 07:05 05/17/16 05/18/16 05/19/16 05:59 05:59 05:59 Intake Total 808 1992 480 Output Total 350 800 175 Balance 458 1192 305 - Time Spent With Patient Time Spent With Patient: Greater than 35 minutes floor time today, including more than 50% of time in coordination of care during staffing meeting, and counseling patient. Physical Exam - Physical Exam General Appearance: WD/WN, alert, no apparent distress Respiratory: No respiratory distress, No accessory muscle use Skin: normal color, warm/dry Neuro/Psych: no motor/sensory deficits, alert, normal mood/affect, oriented x 3 ICD10 Worksheet Patient Problems: Problems Problem Status Onset Altered mental status Acute Back pain Acute Multiple falls Acute
[2016-05-18] MEDS: RED WINE 120 ML BOTTLE PO SCH (18:05)
[2016-05-18] MEDS: DIVALPROEX ER 500 MG TAB PO SCH (20:38)
[2016-05-18] MEDS: ATORVASTATIN CALCIUM 40 MG TAB PO SCH (20:38)
[2016-05-19] MEDS: ENOXAPARIN 40 MG/0.4 ML SYR SC SCH (07:52)
[2016-05-19] MEDS: DOCUSATE SODIUM 100 MG CAP PO SCH (07:52)
[2016-05-19] MEDS: LISINOPRIL 40 MG TAB PO SCH (07:53)
[2016-05-19] MEDS: BISOPROLOL FUMARATE 5 MG TAB PO SCH (07:53)
[2016-05-19] MEDS: CARBIDOPA/LEVODOPA 25 MG/100 MG TAB PO SCH ×3 (07:53→20:05)
[2016-05-19] MEDS: metFORMIN SR 500 MG TAB PO SCH (07:54)
[2016-05-19] MEDS: OMEGA-3 FATTY ACIDS 1,000 MG CAP PO SCH (07:54)
[2016-05-19] MEDS: EPLERENONE 25 MG TAB PO SCH (07:59)
[2016-05-19] MEDS: FINASTERIDE 5 MG TAB PO SCH (07:59)
[2016-05-19] MEDS: ASPIRIN EC 81 MG TAB PO SCH (07:59)
[2016-05-19] MEDS: DIVALPROEX NA 500 MG TAB PO SCH (07:59)
[2016-05-19] MEDS: TAMSULOSIN HCL 0.4 MG CAP PO SCH (12:25)
--- NOTE | 2016-05-19 15:56 | SOAPPROG ---
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 Sinemet started in the acute hospital at 1/2 tab QD; increased to 11/2 tab TID starting 05/08/16; increase further to 1 tab TID starting 05/11/16. Fim 78 on 05/18/16. Has had some improvement in mobility. Ambulated 270' FWW and cues. Has LOB retropulsive and no corrective reflexes; Hardin balance inventory , very high fall risk. Poor recall of strategies; cannot remember how to approach a chair to sit down safely. Needs constant cueing for ADLs. Spilled urinal. Otherwise S for ADLs and mobility. Continue PT and OT to optimize mobility and ADLs. * Cognitive impairment. Significantly impaired memory and problem solving. Needs 24 hour supervision. Continue Speech and Language Pathology. * Hypertension. Per notes from the hospitalization, this has been quite labile. He was not orthostatic, however. Adequate control as of 05/18/16 after titration of amlodipine from 2.5 mg to 10 mg, from 05/08/16 to 05/15/16. * Seizure disorder. He had a loading dose of valproic acid IV. He is continued on an oral dose. VPA level low on labs 05/08/16: increase from 500 mg QHS to 250 mg QAM and 500 mg QHS. Low at 44 on 05/11/16; increase further to 500 mg BID starting 05/12/16. * Sleep abnormality? Advise consideration of sleep study after discharge. * Benign prostatic hypertrophy. Continue finasteride and tamsulosin. Nocturia last night: check UA. PVR was 192. * Diabetes mellitus type 2. Continue metformin. * Dyslipidemia. Continue atorvastatin and omega-3 fatty acids. * Prophylaxis: Enoxaparin will be administered as well as GRZEGORZ hose and sequential compression devices on the legs until his mobility improves. Attended family meeting, 30 min. D/W case mgmt, PT, OT, DONKEY ENGINE FIRER/FIREMAN. Discharge date of 05/21/16. Wants to return to Independent Living. Will need 24 hour supervision. Follow-up movement disorder neurologist Nicolette Ferguson 05/22/16 1030. 05/19/16 15:56 Subjective: No complaints. Denies pain, f/c, cough, dyspnea. Objective: Vital Signs Temp Pulse Resp BP Pulse Ox 36.8 C 60 16 136/81 H 95 05/19/16 07:15 05/19/16 07:53 05/19/16 07:15 05/19/16 07:53 05/19/16 07:15 05/18/16 05/19/16 05/20/16 05:59 05:59 05:59 Intake Total 1991 1428 540 Output Total 800 800 550 Balance 1192 628 -10 - Time Spent With Patient Time Spent With Patient: Greater than 35 minutes floor time today, including more than 50% of time in coordination of care and counseling during staffing meeting. Physical Exam - Physical Exam General Appearance: WD/WN, alert, no apparent distress Respiratory: normal breath sounds, No crackles, No rhonchi, No wheezing Cardiac/Chest: regular rate, rhythm, No edema Skin: normal color, warm/dry Neuro/Psych: alert, normal mood/affect, oriented x 3, other (Shuffling gait.) ICD10 Worksheet Patient Problems: Problems Problem Status Onset Altered mental status Acute Back pain Acute Multiple falls Acute
[2016-05-19] MEDS: RED WINE 120 ML BOTTLE PO SCH (17:23)
[2016-05-19 19:54] VITALS: O2SAT 92
[2016-05-19] MEDS: DIVALPROEX ER 500 MG TAB PO SCH (20:06)
[2016-05-19] MEDS: ATORVASTATIN CALCIUM 40 MG TAB PO SCH (20:06)
[2016-05-20] MEDS: DOCUSATE SODIUM 100 MG CAP PO SCH (09:10)
[2016-05-20] MEDS: EPLERENONE 25 MG TAB PO SCH (09:10)
[2016-05-20] MEDS: DIVALPROEX NA 500 MG TAB PO SCH (09:10)
[2016-05-20] MEDS: TAMSULOSIN HCL 0.4 MG CAP PO SCH (09:10)
[2016-05-20] MEDS: FINASTERIDE 5 MG TAB PO SCH (09:10)
[2016-05-20] MEDS: CARBIDOPA/LEVODOPA 25 MG/100 MG TAB PO SCH ×3 (09:10→20:16)
[2016-05-20] MEDS: OMEGA-3 FATTY ACIDS 1,000 MG CAP PO SCH (09:11)
[2016-05-20] MEDS: LISINOPRIL 40 MG TAB PO SCH (09:11)
[2016-05-20] MEDS: BISOPROLOL FUMARATE 5 MG TAB PO SCH (09:11)
[2016-05-20] MEDS: ASPIRIN EC 81 MG TAB PO SCH (09:11)
[2016-05-20] MEDS: metFORMIN SR 500 MG TAB PO SCH (09:11)
--- NOTE | 2016-05-20 13:21 | SOAPPROG ---
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 Sinemet started in the acute hospital at 1/2 tab QD; increased to 11/2 tab TID starting 05/08/16; increase further to 1 tab TID starting 05/11/16. FIM 78 on 05/18/16. Has had some improvement in mobility. Ambulated 270' FWW and cues. Has LOB retropulsive and no corrective reflexes; [place] balance inventory , very high fall risk. Poor recall of strategies; cannot remember how to approach a chair to sit down safely. Needs constant cueing for ADLs. Spilled urinal. Otherwise S for ADLs and mobility. Continue PT and OT to optimize mobility and ADLs. * Cognitive impairment. Significantly impaired memory and problem solving. Needs 24 hour supervision. Continue Speech and Language Pathology. * Hypertension. Per notes from the hospitalization, this has been quite labile. He was not orthostatic, however. Adequate control as of 05/18/16 after titration of amlodipine from 2.5 mg to 10 mg, from 05/08/16 to 05/15/16. * Seizure disorder. He had a loading dose of valproic acid IV. He is continued on an oral dose. VPA level low on labs 05/08/16: increase from 500 mg QHS to 250 mg QAM and 500 mg QHS. Low at 44 on 05/11/16; increase further to 500 mg BID starting 05/12/16. * Sleep abnormality? Advise consideration of sleep study after discharge. * Benign prostatic hypertrophy. Continue finasteride and tamsulosin. Nocturia last night: check UA neg for infection 05/08/16 but pos blood and protein. PVR was 192. * Diabetes mellitus type 2. Continue metformin. * Dyslipidemia. Continue atorvastatin and omega-3 fatty acids. * Prophylaxis: Enoxaparin will be administered as well as GRZEGORZ hose and sequential compression devices on the legs until his mobility improves. Attended family meeting, 30 min. D/W case mgmt, PT, OT, MATERIALS SCHEDULER. Discharge date of 05/21/16. Wants to return to [facility] Living. Will need 24 hour supervision. Follow-up movement disorder neurologist Nicolette Ferguson 05/22/16 1030. 03/08/17 13:17 Subjective: No complaints. ready to go home tomorrow. Denies f/c, cough, dyspnea. Objective: Vital Signs Temp Pulse Resp BP Pulse Ox 36.8 C 62 18 123/69 H 92 05/20/16 07:51 05/20/16 09:11 05/20/16 07:51 05/20/16 09:11 05/20/16 07:51 05/19/16 05/20/16 05/21/16 05:59 05:59 05:59 Intake Total 1428 1280 354 Output Total 800 1050 Balance 628 230 354 Physical Exam - Physical Exam General Appearance: WD/WN, alert, no apparent distress Respiratory: normal breath sounds, No crackles, No rhonchi, No wheezing Cardiac/Chest: regular rate, rhythm, No edema Skin: normal color, warm/dry Neuro/Psych: no motor/sensory deficits, alert, normal mood/affect, oriented x 3 ICD10 Worksheet Patient Problems: Problems Problem Status Onset Altered mental status Acute Back pain Acute Multiple falls Acute
[2016-05-20] MEDS: RED WINE 120 ML BOTTLE PO SCH (18:18)
[2016-05-20] MEDS: DIVALPROEX ER 500 MG TAB PO SCH (20:16)
[2016-05-20] MEDS: ATORVASTATIN CALCIUM 40 MG TAB PO SCH (20:16)
[2016-05-20 21:29] VITALS: RESP 16
[2016-05-21 06:53] VITALS: BP 132/71; PULSE 60; TEMP 98.1
[2016-05-21] MEDS: OMEGA-3 FATTY ACIDS 1,000 MG CAP PO SCH (08:15)
[2016-05-21] MEDS: FINASTERIDE 5 MG TAB PO SCH (08:15)
[2016-05-21] MEDS: DOCUSATE SODIUM 100 MG CAP PO SCH (08:15)
[2016-05-21] MEDS: LISINOPRIL 40 MG TAB PO SCH (08:15)
[2016-05-21] MEDS: ASPIRIN EC 81 MG TAB PO SCH (08:16)
[2016-05-21] MEDS: CARBIDOPA/LEVODOPA 25 MG/100 MG TAB PO SCH (08:16)
[2016-05-21] MEDS: DIVALPROEX NA 500 MG TAB PO SCH (08:16)
[2016-05-21] MEDS: EPLERENONE 25 MG TAB PO SCH (08:16)
[2016-05-21] MEDS: TAMSULOSIN HCL 0.4 MG CAP PO SCH (08:17)
[2016-05-21] MEDS: BISOPROLOL FUMARATE 5 MG TAB PO SCH (08:17)
--- NOTE | 2016-05-21 16:28 | GDS ---
[f rep st] DISCHARGE SUMMARY ADMITTING DIAGNOSIS: Debility, status post hospitalization for syncopal episode. DISCHARGE DIAGNOSIS: Debility, status post hospitalization for syncopal episode. OTHER DISCHARGE DIAGNOSES: Vascular parkinsonism, cognitive impairment, hypertension, seizure disorder. CONSULTATIONS: There were none. PROCEDURES: There were none. COMPLICATIONS: There were none. HISTORY AND HOSPITAL COURSE: Mr. Fong suffered a syncopal episode on 2016. He was hospitalized and evaluated, including by Dr. Lofton of Neurology. The etiology of the episode was considered to be either a seizure, as he had a history of seizure disorder and was subtherapeutic on divalproex sodium, or possibly a sleep attack which could be related to his vascular parkinsonism. He was stabilized and transferred to inpatient rehabilitation. He made some progress in physical therapy but continued to have a high fall risk with poor balance. His [place] balance inventory was 23/56. Sinemet had been started for his parkinsonism in the acute care hospital at 1/2 tab daily. This was increased to 1/2 tab t.i.d. on 05/08/2016, and then to 1 tab t.i.d. on 05/11/2016. He continued to have a shuffling gait, retropulsive loss of balance and poor corrective reflexes. He had poor recall of strategies, for instance how to approach a chair to sit down safely. Though he was able to ambulate 270 feet with a front-wheeled walker, he continued to need constant cuing for activities of daily living and mobility for safety. He had cognitive evaluation by Speech Therapy. He was found to have significantly impaired memory and problem solving. He was recommended for 24- hour supervision for safety. He had hypertension, which in the hospital was noted to be labile. He was not orthostatic. He had addition of amlodipine to his antihypertensives which was titrated from 2.5 mg daily to 10 mg daily starting on 05/15/2016, and at this dose he achieved good control of his blood pressure. Regarding his seizure disorder, there was no seizure activity while he was here. His valproic acid level was low on 05/08/2016, and again after titration on 05/11/2016. Finally, hisdivalproex sodium was titrated to 500 mg twice daily starting on 05/12/2016. LABORATORY DATA: During his stay, he had liver function tests done to assist in determining his actual serum valproic acid level, and these all came out within normal limits. Urinalysis was done because of urinary frequency and nocturia. It was not consistent with infection; however, he had 2+ protein and 2+ blood and 50-182 red blood cells in his urine. Valproic acid on 05/11/2016 was low at 44. Subsequently, he had titration of his divalproex sodium from 250 in the morning and 500 at night to 500 twice daily, so most likely his level became therapeutic at that dose, though it was not retested. DISCHARGE PLAN: Condition upon discharge is good. Activity is ad compa, but he needs supervision for safety. Diet is regular. Date of next appointment. He has followup with movement disorder neurologist, Nicolette Ferguson, on 05/22/2016 at 10:30 in the morning. Additionally, he can follow up in 1-2 weeks with his primary care provider, Dr. Moseley. MEDICATIONS AT DISCHARGE: 1. [place]-3 fatty acids 1000 mg p.o. daily. 2. Aspirin 81 mg p.o. daily. 3. Metformin sustained release 500 mg p.o. daily. 4. Amlodipine 10 mg p.o. at bedtime. 5. Tamsulosin 0.8 mg p.o. daily. 6. Polyethylene glycol 17 g p.o. daily p.r.n. 7. Lisinopril 40 mg p.o. daily. 8. Finasteride 5 mg p.o. daily. 9. Eplerenone 25 mg p.o. daily. 10. Divalproex 500 mg twice daily. 11. Carbidopa/levodopa 25/100 mg 1 tablet p.o. t.i.d. 12. Bisoprolol 5 mg p.o. daily. 13. Atorvastatin 40 mg p.o. q.h.s. ISSUES TO ADDRESSED AT FOLLOWUP: 1. Vascular parkinsonism and high fall risk. He will continue to have physical therapy as well as occupational therapy after his discharge at home at the [facility]. Additionally arrangements were made for 24- hour care. He can follow up regarding these issues with the movement disorder neurologist as well as with his primary care provider. 2. Hypertension. Good blood pressure control was achieved. He can follow up with his primary care provider. 3. Hematuria. He should have a followup urinalysis done with his primary care provider. If the hematuria persists, consider a referral to Urology. 4. Seizure disorder. It might be worthwhile to recheck a valproic acid level in consultation either with Neurology or with his primary care provider. /[id number]/MODL MTDD
== END 2016-05-21 10:20 | disposition home health service (06) | DRG 57 ==
LOC: BREH 15:15
PROVIDERS: ADMIT Internal Medicine; ATTEND Internal Medicine
DX: G21.4 Vascular parkinsonism (principal); R31.9 Hematuria, unspecified; I10 Essential (primary) hypertension; G40.909 Epilepsy, unspecified, not intractable, without status epilepticus; N40.0 Benign prostatic hyperplasia without lower urinary tract symptoms; E11.9 Type 2 diabetes mellitus without complications; E78.5 Hyperlipidemia, unspecified; Z79.84 Long term (current) use of oral hypoglycemic drugs
CPT/HCPCS: 92507-GN; 92522-GN; 97110-GO; 97110-GP; 97112-GP; 97116-GP; 97162-GP; 97166-GO; 97530-GO; 97530-GP; 97535-GO; 99366-GO; J1650

== ENCOUNTER 2016-07-01 18:10 | Emergency (ER) | payer OTHER, MEDICARE ==
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
[2016-07-01 18:48] LABS: % IMMATURE GRANULYOCYTES 0.2 % (0.0-1.1); ABSOLUTE IMMATURE GRANULOCYTES 0.01 10^3/uL (0.00-0.10); ADD DIFF? NO; ADD MORPH? NO; ADD SCAN? NO; ATYPICAL LYMPHOCYTE FLAG 10 (0-99); FRAGMENT RBC FLAG 0 (0-99); HEMATOCRIT 40.6 % (40.0-51.0); HEMOGLOBIN 14.4 g/dL (13.7-17.5); LEFT SHIFT FLG 0 (0-99); LIPEMIA HEMOLYSIS FLAG 90 (0-99); MEAN CELL HEMOGLOBIN 33.3 pg (27.9-34.1); MEAN CELL HEMOGLOBIN CONCENTR. 35.5 g/dL (32.4-36.7); PLATELET CLUMPS FLAG 0 (0-99); PLATELET COUNT 163 10^3/uL (150-400); RED BLOOD CELL COUNT 4.32 10^6/uL (4.40-6.38); RED CELL DISTRIBUTION WIDTH 13.5 % (11.5-15.2)
[2016-07-01 19:04] LABS: ANION GAP 12 mEq/L (8-16); CALCIUM 9.2 mg/dL (8.5-10.4); CARBON DIOXIDE 28 mEq/l (22-31); CHLORIDE 99 mEq/L (97-110); CREATININE 1.1 mg/dL (0.7-1.3); GLOMERULAR FILTRATION RATE > 60; GLUCOSE 124 mg/dL (70-100); POTASSIUM 3.5 mEq/L (3.5-5.2); SODIUM 139 mEq/L (134-144)
[2016-07-01 19:27] VITALS: RESP 16; O2SAT 95
[2016-07-01 20:20] VITALS: BP 145/76; PULSE 75; TEMP 96.8
== END 2016-07-01 20:21 | disposition home or self-care (01) ==
DX: R60.9 Edema, unspecified (principal); I10 Essential (primary) hypertension; Z79.82 Long term (current) use of aspirin; Z79.84 Long term (current) use of oral hypoglycemic drugs

== ENCOUNTER 2017-07-14 21:11 | Emergency (ER) | payer OTHER, MEDICARE ==
[2017-07-14] MEDS ORDERED: NS 1,000 ML IV ONE (21:20)
--- NOTE | 2017-07-14 21:21 | CPEKG ---
Heart Rate: 60 RR Interval: 1000 P-R Interval: 204 QRSD Interval: 166 QT Interval: 464 QTC Interval: 464 P [place]: 21 QRS [place]: -83 T Wave [place]: 3 EKG Severity - ABNORMAL ECG - EKG Impression: SINUS RHYTHM EKG Impression: RIGHT BUNDLE BRANCH BLOCK EKG Impression: Similar to previous Electronically Signed By: Reuben Porras 14-Jul-2017 21:21:47
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
[2017-07-14 21:32] LABS: PLATELET COUNT 196 10^3/uL (150-400)
[2017-07-14 22:21] VITALS: BP 135/93
== END 2017-07-14 22:21 | disposition home or self-care (01) ==
LOC: EDBD → EDUNIT#
DX: R55 Syncope and collapse (principal); E86.9 Volume depletion, unspecified; F10.920 Alcohol use, unspecified with intoxication, uncomplicated; I10 Essential (primary) hypertension; G20 Parkinson's disease; Z79.82 Long term (current) use of aspirin; Z85.46 Personal history of malignant neoplasm of prostate
CPT/HCPCS: G0480

== ENCOUNTER 2017-12-20 18:43 | Inpatient (IN) | payer OTHER, MEDICARE ==
--- NOTE | 2017-12-20 18:45 | EDPHY ---
H & P Time Seen by Provider: 12/20/17 18:43 Constitutional: Initial Vital Signs Temperature (C) 36.6 C 12/20/17 18:43 Heart Rate 60 12/20/17 18:43 Respiratory Rate 16 12/20/17 18:43 Blood Pressure 135/74 H 10 18:43 O2 Sat (%) 96 10 18:43 O2 Delivery Mode Nasal Cannula O2 (L/minute) 2 Allergies/Adverse Reactions: codeine Allergy (Mild, Verified 12/20/17 19:05) Vomiting Home Medications: Medication Instructions Recorded Aspirin EC [Aspirin EC 81 mg (*)] 81 mg PO DAILY 12/20/17 Atorvastatin Calcium [Lipitor 40 40 mg PO HS 12/20/17 mg (*)] Bisoprolol Fumarate [Zebeta (*)] 2.5 mg PO DAILY 12/20/17 Cholecalciferol (Vitamin D3) 4,000 unit PO DAILY 12/20/17 [Vitamin D3] Docusate Sodium [Colace 100 MG (*)] 200 mg PO DAILY 12/20/17 Eplerenone [Inspra 25 MG (*)] 25 mg PO DAILY 12/20/17 Finasteride [Proscar 5 MG (*)] 5 mg PO DAILY 12/20/17 Herbals/Supplements -Info Only 1 ea PO DAILY 12/20/17 Keppra 250 mg (*) 250 mg PO BID 12/20/17 Lisinopril [Zestril 40 mg (*)] 40 mg PO DAILY 12/20/17 Mirabegron [Myrbetriq] 50 mg PO DAILY 12/20/17 [place]-3 Fatty Acids [Fish Oil 1000 1,000 mg PO DAILY 12/20/17 mg (*)] Tamsulosin HCl [Flomax 0.4 MG (*)] 0.8 mg PO DAILY 12/20/17 Tears/Dextran 70/Hypromellose 1 drop EACHEYE TID PRN 12/20/17 [Natural Balance Tears (*)] Triamterene/Hydrochlorothiazid 1 tab PO DAILY 12/20/17 [Triamterene-Hctz 37.5-25 mg Tb] amLODIPine BESYLATE [Norvasc 5 mg 5 mg PO HS 12/20/17 (*)] Medical Decision Making - Diagnostics Imaging Results: Imaging Impressions Carotid Doppler Study 12/20/17 06:00 Impression: Bilateral echogenic carotid bifurcation plaque formation, without hemodynamically limiting carotid stenosis. Measurement of carotid stenosis is based on velocity parameters that correlate the residual internal carotid diameter with [place] Symptomatic Carotid Endarterectomy Trial (NASCET) based stenosis levels. Head CT 12/20/17 18:46 Impression: Stable noncontrast CT of the brain. Results called to Dr. Missael Butcher at 7:00 PM at the time of the interpretation. Imaging: Discussed imaging studies w/ bingo caller Radiologist ED Course/Re-evaluation: CHIEF COMPLAINT: Stroke alert HISTORY OF PRESENT ILLNESS: This patient is a non-anticoagulated 87 year old male with history of TIA arriving via EMS on a stroke alert. At about 18:15pm today, 30 minutes prior to arrival, staff at the patient's assisted living home noted him slump over in his chair and they noted left-sided extremity weakness. The patient was unable to speak to staff and they called 911. By EMS arrival, the patient had improved slightly, but they did observe deficits including inability to speak clearly and left-sided weakness. Upon arrival here in the emergency department, his symptoms seem to have resolved completely. He denies any recent trauma. No recent illness. No chest pain, shortness of breath, fever, nausea, vomiting, lightheadedness, headache, urinary complaints, or other associated symptoms. REVIEW OF SYSTEMS: A comprehensive 10 system review of systems is otherwise negative aside from elements mentioned in the history of present illness and medical decision making. PHYSICAL EXAM: HR, BP, O2 Sat, RR. Temp noted General Appearance: Alert, well hydrated, appropriate, and non-toxic appearing. Head: Atraumatic without scalp tenderness or obvious injury Eyes: Pupils equal, round, reactive to light and accommodation, EOMI, no trauma , no injection. Ears: Clear bilaterally, no perforation, normal landmarks Nose: Atraumatic, no rhinorrhea, clear. Throat: There is no erythema or exudates, no lesions, normal tonsils, mucus membranes moist. Neck: Supple, 2+ carotid upstroke, nontender, no lymphadenopathy. Respiratory: No retractions, no distress, no wheezes, and no accessory muscle use. Lungs are clear to auscultation bilaterally. Cardiovascular: Regular rate and rhythm, no murmurs, rubs, or gallops. Bilateral carotid, radial, dorsalis pedis, and posterior tibial pulses intact. Good capillary refill all extremities. Gastrointestinal: Abdomen is soft, nontender, non-distended, no masses, no rebound, no guarding, no peritoneal signs. Musculoskeletal: Normal active ROM of all extremities, atraumatic. Neurological: Alert, appropriate, and interactive. The patient has normal DTRs and non-focal cranial nerves, motor, sensory, and cerebellar exam. Skin: No rashes, good turgor, no nodules on palpation. 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 Hypertension. Hyperlipidemia. Seizure disorder. Diabetes mellitus type 2. BPH. Poor balance, cognitive impairment, falls Past surgical history: Noncontributory. Family history: Noncontributory. Social history: Family at bedside. Lives independently at the [facility]. PCP Keri Cantu. DIFFERENTIAL DIAGNOSIS: The differential diagnosis for the patient's neurologic deficits included but was not limited to peripheral causes, central causes including CVA, TIA, electrolyte abnormalities and dehydration, cardiogenic causes, atypical causes like migraine syndrome. MEDICAL DECISION MAKIN:43 Met EMS on arrival. Patient is now asymptomatic. Patient will proceed to imaging for CT head without contrast. This patient is an 87 y/o male arriving on a stroke alert by EMS. 30 minutes prior to arrival, staff noted he lost his ability to speak and had significant upper and lower extremity deficits. These resolved gradually in transport and by arrival here, he was completely asymptomatic. 18:58 I-stat reviewed. Creatinine 1.2. 19:[address] Wells, radiologist. CT head is unchanged from prior CT imaging. 19:04 Reassessed. Family at bedside. Patient is completely asymptomatic. CTA head/neck is not indicated at this time. Discussed admission for TIA workup. The patient and his family are amenable to this. He is feeling well currently, speaking normally. He is able to move his left arm normally. He does take 81mg ASA daily. Plan to consult with instructional systems designer neurologist and with hospital medicine. 19:08 Spoke with hospitalist service. Dr. Argueta accepts admission for TIA. 19:[address] Aiken, neurologist. He recommends CTA head/neck for further evaluation. In this age group with an elevated creatinine, I will not complete this test at this time at the patient is completely asymptomatic. Plan to admit as above. - Data Points Laboratory Results: Laboratory Results 12/20/17 18:51 12/20/17 18:51 12/20/17 12/20/17 12/20/17 18:51 18:51 18:51 WBC 6.50 10^3/uL 10^3/uL (3.80-9.50) RBC 5.02 10^6/uL 10^6/uL (4.40-6.38) Hgb 16.3 g/dL g/dL (13.7-17.5) POC Hgb Hct 46.8 % % (40.0-51.0) POC Hct MCV 93.2 fL fL (81.5-99.8) MCH 32.5 pg pg (27.9-34.1) MCHC 34.8 g/dL g/dL (32.4-36.7) RDW 13.2 % % (11.5-15.2) Plt Count 208 10^3/uL 10^3/uL (150-400) MPV 9.9 fL fL (8.7-11.7) Neut % (Auto) 81.6 % H % (39.3-74.2) Lymph % (Auto) 10.8 % L % (15.0-45.0) [place] % (Auto) 6.6 % % (4.5-13.0) Eos % (Auto) 0.8 % % (0.6-7.6) Baso % (Auto) 0.0 % L % (0.3-1.7) Nucleat RBC Rel Count 0.0 % % (0.0-0.2) Absolute Neuts (auto) 5.31 10^3/uL 10^3/uL (1.70-6.50) Absolute Lymphs (auto) 0.70 10^3/uL L 10^3/uL (1.00-3.00) Absolute Monos (auto) 0.43 10^3/uL 10^3/uL (0.30-0.80) Absolute Eos (auto) 0.05 10^3/uL 10^3/uL (0.03-0.40) Absolute Basos (auto) 0.00 10^3/uL L 10^3/uL (0.02-0.10) Absolute Nucleated RBC 0.00 10^3/uL 10^3/uL (0-0.01) Immature Gran % 0.2 % % (0.0-1.1) Immature Gran # 0.01 10^3/uL 10^3/uL (0.00-0.10) PT 13.9 SEC SEC (12.0-15.0) INR 1.05 (0.83-1.16) POC Sodium Sodium 134 mEq/L L mEq/L (135-145) POC Potassium Potassium 3.7 mEq/L mEq/L (3.3-5.0) POC Chloride Chloride 97 mEq/L mEq/L (97-110) Carbon Dioxide 26 mEq/l mEq/l (22-31) Anion Gap 11 mEq/L mEq/L (8-16) POC BUN BUN 29 mg/dL H mg/dL (7-23) Creatinine 1.1 mg/dL mg/dL (0.7-1.3) POC Creatinine Estimated GFR > 60 Glucose 142 mg/dL H mg/dL (70-100) POC Glucose Calcium 9.4 mg/dL mg/dL (8.5-10.4) POC Troponin I Troponin I < 0.012 ng/mL ng/mL (0.000-0.034) 12/20/17 12/20/17 18:49 18:47 WBC RBC Hgb POC Hgb 16.3 gm/dL gm/dL (13.7-17.5) Hct POC Hct 48 % % (40-51) MCV MCH MCHC RDW Plt Count MPV Neut % (Auto) Lymph % (Auto) [place] % (Auto) Eos % (Auto) Baso % (Auto) Nucleat RBC Rel Count Absolute Neuts (auto) Absolute Lymphs (auto) Absolute Monos (auto) Absolute Eos (auto) Absolute Basos (auto) Absolute Nucleated RBC Immature Gran % Immature Gran # PT INR POC Sodium 134 mEq/L L mEq/L (135-145) Sodium POC Potassium 3.3 mEq/L mEq/L (3.3-5.0) Potassium POC Chloride 104 mEq/L mEq/L (97-110) Chloride Carbon Dioxide Anion Gap POC BUN 25 mg/dL H mg/dL (7-23) BUN Creatinine POC Creatinine 1.2 mg/dL mg/dL (0.7-1.3) Estimated GFR Glucose POC Glucose 144 mg/dL H mg/dL (70-100) Calcium POC Troponin I 0.00 ng/mL ng/mL (0.00-0.08) Troponin I Medications Given: Amlodipine Besylate (Norvasc) 10 mg PO HS RODNEY Stop: 06/18/18 20:59 Last Admin: 12/20/17 21:29 Dose: 10 mg Atorvastatin Calcium (Lipitor) 40 mg PO HS RODNEY Stop: 06/18/18 20:59 Last Admin: 12/20/17 21:29 Dose: 40 mg Levetiracetam (Keppra) 250 mg PO BID RODNEY Stop: 06/18/18 20:59 Last Admin: 12/20/17 21:29 Dose: 250 mg Point of Care Test Results: Chemistry 12/20/17 12/20/17 18:49 18:47 POC Sodium 134 mEq/L L mEq/L (135-145) POC Potassium 3.3 mEq/L mEq/L (3.3-5.0) POC Chloride 104 mEq/L mEq/L (97-110) POC BUN 25 mg/dL H mg/dL (7-23) POC Creatinine 1.2 mg/dL mg/dL (0.7-1.3) POC Glucose 144 mg/dL H mg/dL (70-100) POC Troponin I 0.00 ng/mL ng/mL (0.00-0.08) ISTAT H&H 12/20/17 18:49 POC Hgb 16.3 gm/dL gm/dL (13.7-17.5) POC Hct 48 % % (40-51) Departure - Departure Disposition: [facility] Inpatient Acute Clinical Impression: TIA (transient ischemic attack) Condition: Fair Report Scribed for: Missael Butcher Report Scribed by: Ashia Boyce Date of Report: 12/20/17 Time of Report: 19:08
[2017-12-20] MEDS ORDERED: ONDANSETRON 4 MG/2 ML VIAL ONE (18:50)
[2017-12-20 18:56] LABS: PLATELET COUNT 208 10^3/uL (150-400)
[2017-12-20 19:04] LABS: INR 1.05 (0.83-1.16); PROTIME(PATIENT) 13.9 SEC (12.0-15.0)
[2017-12-20] MEDS ORDERED: ONDANSETRON DISINTEGRATING 4 MG TAB PO PRN (19:20)
[2017-12-20] MEDS ORDERED: ACETAMINOPHEN 325 MG TAB PO PRN (19:20)
[2017-12-20] MEDS ORDERED: ONDANSETRON 4 MG/2 ML VIAL IVP PRN (19:20)
[2017-12-20] MEDS ORDERED: POTASSIUM Cl (KCl) 40 MEQ in NS 1,000 ML IV SCH (19:30)
[2017-12-20] MEDS ORDERED: TEARS/DEXTRAN 70/HYPROMELLOSE 15 ML OPHT.BTL EACHEYE PRN (19:52)
--- NOTE | 2017-12-20 19:58 | PDGENHP ---
History and Physical - Chief Complaint Acute dysarthria - History of Present Illness Primary care provider: Keri France Primary neurology: Walt Yuen Primary front office help: Dr. Feng Reid HPI: 87-year-old male presents with acute dysarthria characterized as unresponsive speech, inability to speak clearly, associated with dense paresis located in his left upper extremity and left lower extremity, onset of symptoms 30 min prior to arrival, approximately 6:15 p.m., with duration approximately 30 min and resolution by the time he arrived at the emergency department. Symptoms were witnessed by his station gateman, who contact the patient's daughter, and requested that he be brought to the emergency department immediately. The symptoms were also observed by EMS who transported him. The patient does not remember any of the symptoms but he does recall feeling somewhat dizzy and abnormally fatigued on the day of presentation, as recently as 4:00 p.m. Prior to his symptoms. He denies any infectious symptoms such as cough, dysuria, fever, chills, diarrhea, but does report that his oral intake has been somewhat low and his caretakers at [facility] continue to encourage him to consume more fluids. He reports that his oral intake of solids has been good, and he only consumes 2 small alcoholic beverages occasionally with dinner. He otherwise took all of his home medications on the morning of presentation. History Information - Allergies/Home Medication List Allergies/Adverse Reactions: codeine Allergy (Mild, Verified 12/20/17 19:05) Vomiting Home Medications: Aspirin EC [Aspirin EC 81 mg (*)] 81 mg PO DAILY 12/20/17 [Last Taken 12/20/17 09:00] Atorvastatin Calcium [Lipitor 40 mg (*)] 40 mg PO HS 12/20/17 [Last Taken 20:00] Bisoprolol Fumarate [Zebeta (*)] 2.5 mg PO DAILY 12/20/17 [Last Taken 12/20/17 09:00] Cholecalciferol (Vitamin D3) [Vitamin D3] 4,000 unit PO DAILY 12/20/17 [Last Taken 12/20/17 09:00] Docusate Sodium [Colace 100 MG (*)] 200 mg PO DAILY 12/20/17 [Last Taken 09:00] Eplerenone [Inspra 25 MG (*)] 25 mg PO DAILY 12/20/17 [Last Taken 12/20/17 09:00 ] Finasteride [Proscar 5 MG (*)] 5 mg PO DAILY 12/20/17 [Last Taken 12/20/17 09:00 ] Herbals/Supplements -Info Only 1 ea PO DAILY 12/20/17 [Last Taken 12/20/17 09:00 ] Keppra 250 mg (*) 250 mg PO BID 12/20/17 [Last Taken 12/20/17 09:00] Lisinopril [Zestril 40 mg (*)] 40 mg PO DAILY 12/20/17 [Last Taken 12/20/17 09: 00] Mirabegron [Myrbetriq] 50 mg PO DAILY 12/20/17 [Last Taken 12/20/17 09:00] [place]-3 Fatty Acids [Fish Oil 1000 mg (*)] 1,000 mg PO DAILY 12/20/17 [Last Taken 12/20/17 09:00] Tamsulosin HCl [Flomax 0.4 MG (*)] 0.8 mg PO DAILY 12/20/17 [Last Taken 09:00] Tears/Dextran 70/Hypromellose [Natural Balance Tears (*)] 1 drop EACHEYE TID PRN 12/20/17 [Last Taken Unknown] Triamterene/Hydrochlorothiazid [Triamterene-Hctz 37.5-25 mg Tb] 1 tab PO DAILY 12/20/17 [Last Taken 12/20/17 09:00] amLODIPine BESYLATE [Norvasc 5 mg (*)] 5 mg PO HS 12/20/17 [Last Taken 12/19/17 20:00] I have personally reviewed and updated: family history, medical history, social history, surgical history - Past Medical History Additional medical history: 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 Hypertension. Hyperlipidemia. Seizure disorder. Diabetes mellitus type 2. BPH. Poor balance, cognitive impairment, falls - Surgical History Reports: no pertinent surgical hx - Family History Additional family history: Independent at [facility] with 12 hr per day of caretakers on site, occasional evening alcoholic beverage, no smoking, works with physical therapy, daughter reports that his physical capacity has improved significantly over the past year - Social History Smoking Status: Never smoked Review of Systems Review of Systems: ROS: 10pt was reviewed & negative except for what was stated in HPI & below Constitutional: Reports: other (Fatigue) Neurological: Reports: weakness (Left-sided), other (Dysarthria) Physical Exam Physical Exam: Temp Pulse Resp BP Pulse Ox 36.6 C 65 20 125/69 H 96 12/20/17 18:43 12/20/17 19:49 12/20/17 19:49 12/20/17 19:49 12/20/17 19:49 O2 (L/minute) 2 Constitutional: no apparent distress, not in pain, other (Aged appearing), No uncomfortable Eyes: PERRL, anicteric sclera, EOMI Ears, Nose, Mouth, Throat: hard of hearing, other (Tacky mucous membranes) Cardiovascular: regular rate and rhythym, no murmur, rub, or gallop, edema ( Trace bilateral lower extremities) Respiratory: no respiratory distress, no rales or rhonchi, clear to auscultation Gastrointestinal: normoactive bowel sounds, soft, non-tender abdomen, no palpable masses, No distension Skin: warm, No rash Neurologic: AAOx3, sensation intact bilaterally, CN II-XII Intact, No weakness Psychiatric: interacting appropriately, not anxious, flat affect, poor memory, No agitated Lab Data & Imaging Review 12/20/17 18:51 12/20/17 18:51 WBC 6.50 10^3/uL (3.80-9.50) 12/20/17 18:51 RBC 5.02 10^6/uL (4.40-6.38) 12/20/17 18:51 Hgb 16.3 g/dL (13.7-17.5) 12/20/17 18:51 POC Hgb 16.3 gm/dL (13.7-17.5) 12/20/17 18:49 Hct 46.8 % (40.0-51.0) 12/20/17 18:51 POC Hct 48 % (40-51) 12/20/17 18:49 MCV 93.2 fL (81.5-99.8) 12/20/17 18:51 MCH 32.5 pg (27.9-34.1) 12/20/17 18:51 MCHC 34.8 g/dL (32.4-36.7) 12/20/17 18:51 RDW 13.2 % (11.5-15.2) 12/20/17 18:51 Plt Count 208 10^3/uL (150-400) 12/20/17 18:51 MPV 9.9 fL (8.7-11.7) 12/20/17 18:51 Neut % (Auto) 81.6 % (39.3-74.2) H 12/20/17 18:51 Lymph % (Auto) 10.8 % (15.0-45.0) L 12/20/17 18:51 [place] % (Auto) 6.6 % (4.5-13.0) 12/20/17 18:51 Eos % (Auto) 0.8 % (0.6-7.6) 12/20/17 18:51 Baso % (Auto) 0.0 % (0.3-1.7) L 12/20/17 18:51 Nucleat RBC Rel Count 0.0 % (0.0-0.2) 12/20/17 18:51 Absolute Neuts (auto) 5.31 10^3/uL (1.70-6.50) 12/20/17 18:51 Absolute Lymphs (auto) 0.70 10^3/uL (1.00-3.00) L 12/20/17 18:51 Absolute Monos (auto) 0.43 10^3/uL (0.30-0.80) 12/20/17 18:51 Absolute Eos (auto) 0.05 10^3/uL (0.03-0.40) 12/20/17 18:51 Absolute Basos (auto) 0.00 10^3/uL (0.02-0.10) L 12/20/17 18:51 Absolute Nucleated RBC 0.00 10^3/uL (0-0.01) 12/20/17 18:51 Immature Gran % 0.2 % (0.0-1.1) 12/20/17 18:51 Immature Gran # 0.01 10^3/uL (0.00-0.10) 12/20/17 18:51 PT 13.9 SEC (12.0-15.0) 12/20/17 18:51 INR 1.05 (0.83-1.16) 12/20/17 18:51 POC Sodium 134 mEq/L (135-145) L 12/20/17 18:49 Sodium 134 mEq/L (135-145) L 12/20/17 18:51 POC Potassium 3.3 mEq/L (3.3-5.0) 12/20/17 18:49 Potassium 3.7 mEq/L (3.3-5.0) 12/20/17 18:51 POC Chloride 104 mEq/L (97-110) 12/20/17 18:49 Chloride 97 mEq/L (97-110) 12/20/17 18:51 Carbon Dioxide 26 mEq/l (22-31) 12/20/17 18:51 Anion Gap 11 mEq/L (8-16) 12/20/17 18:51 POC BUN 25 mg/dL (7-23) H 12/20/17 18:49 BUN 29 mg/dL (7-23) H 12/20/17 18:51 Creatinine 1.1 mg/dL (0.7-1.3) 12/20/17 18:51 POC Creatinine 1.2 mg/dL (0.7-1.3) 12/20/17 18:49 Estimated GFR > 60 12/20/17 18:51 Glucose 142 mg/dL (70-100) H 12/20/17 18:51 POC Glucose 144 mg/dL (70-100) H 12/20/17 18:49 Calcium 9.4 mg/dL (8.5-10.4) 12/20/17 18:51 POC Troponin I 0.00 ng/mL (0.00-0.08) 12/20/17 18:47 Troponin I < 0.012 ng/mL (0.000-0.034) 12/20/17 18:51 Visualized and Interpreted imaging results: Yes Interpretation: Head CT with ventriculomegaly but no intracranial hemorrhage Visualized and Interpreted EKG results: Yes EKG Interpretation: Positive for: other (Right bundle branch block, normal sinus rhythm) Assessment & Plan Assessment: 87-year-old male presenting with acute TIA Plan: 1. TIA. Acute, new problem this provider, further workup indicated. Symptoms include dysarthria, hemiparesis, all of which have resolved after approximately 30 min -ABCD2 score of 5, conferring moderate risk for 2 days CVA, 4% comma immediate workup indicated -reviewed outside records including previous CT angiogram from March of 2016 indicating 30-40% stenosis, will get carotid ultrasound for screening purposes determine whether this has substantially increased and if it has will get repeat CT angio -reviewed outside records and there is no indication of previous echocardiogram , will get echo as part of TIA workup -monitor on telemetry -increase aspirin from 81 mg daily to aspirin 325 daily -check LDL, hemoglobin A1c -check respiratory viral panel to evaluate for any contributing viral syndrome given his fatigue and dizziness pre symptom -neurology consultation in a.m. 2. Vascular parkinsonism. Reviewed outside records including 05/04/[address] Garrett Lofton, outlined patient's diagnosis of vascular parkinsonism with outpatient follow-up with Dr. Ferguson, the patient has subsequently transition his care back to the local Neurology [facility] and discontinued Sinemet with significant improvement in his gait -get cog, PT and OT assessments to help determine whether is 12 hr of care at [place] is adequate 3. Hypokalemia. Potentially secondary to use of triamterene hydrochlorothiazide , with patient appearing somewhat dry, potentially contributing to his fatigue symptoms -recommend discontinuing triamterene hydrochlorothiazide in this elderly patient -will give normal saline with potassium and repeat level in a.m. 4. Hypertension. Chronic, continue patient's beta-leo, ROSIO-inhibitor, increase amlodipine to 10 mg daily monitor for increased lower extremity edema in the outpatient setting -discontinue triamterene hydrochlorothiazide Diet. Diabetic after swallow eval Prophylaxis. Moderate risk patient, Lovenox for Code. Full per patient, daughter is MD PONarcisa Disposition. Anticipated discharge is 12/21, pending further workup as outlined above. I have discussed patient's presentation with Dr. Missael Butcher, he and I both agree the patient warrants further evaluation at this time.
[2017-12-20] MEDS: levETIRAcetam 250 MG TAB PO SCH (21:29)
[2017-12-20] MEDS: amLODIPine BESYLATE 5 MG TAB PO SCH (21:29)
[2017-12-20] MEDS: ATORVASTATIN CALCIUM 40 MG TAB PO SCH (21:29)
--- NOTE | 2017-12-20 21:58 | CPEKG ---
Test Reason : OPEN Blood Pressure : / mmHG Vent. Rate : 059 BPM Atrial Rate : 059 BPM P-R Int : 186 ms QRS Dur : 166 ms QT Int : 480 ms P-R-T Axes : 013 270 017 degrees QTc Int : 476 ms Sinus rhythm Right bundle branch block Inferior infarct, old Anterior infarct, age indeterminate Confirmed by Missael Butcher ([id number]) on 12/20/2017 9:58:26 PM Referred By: Confirmed By:Missael Butcher
--- NOTE | 2017-12-21 08:28 | HOSPPROG ---
Hospitalist Progress Note Assessment/Plan: 87-year-old male presenting with acute TIA *TIA, transient left sided weakness and speech disturbance -carotid doppler: B/l echogenic carotid bifurcation plaque formation, w/o hemodynamically limiting carotid stenosis -asa changed to Plavix -echo pending -neurology recommending to monitor for 24 hours to r/o any afib (patient arrived to the floor last night around 8 p.m.) -CT of head stable -LDL is 34 -to get a brain MRI -f/u with neurology in 1-5 weeks w neurology *vascular parkinsonism *hypokalemia *htn -bp stable *diabetes -A1c pending *plan; Patient will need another night monitoring to evaluate on the groundwater monitoring technician to r/o any atrial fib, to get an MRI today. Subjective: Yoni wants to go home. Objective: Vital Signs Temp Pulse Resp BP Pulse Ox 37.2 C 60 21 H 114/61 95 12/21/17 08:00 12/21/17 08:00 12/21/17 08:00 12/21/17 08:00 12/21/17 08:00 Microbiology 12/20/17 23:40 Respiratory Panel (PCR) - Final Nasal, Sinus - Swab No Organism Detected Laboratory Results 12/21/17 05:10 12/20/17 12/21/17 12/22/17 05:59 05:59 05:59 Output Total 400 Balance -400 PT 13.9 SEC (12.0-15.0) 12/20/17 18:51 INR 1.05 (0.83-1.16) 12/20/17 18:51 - Physical Exam Constitutional: no apparent distress, appears nourished, not in pain Eyes: PERRL Ears, Nose, Mouth, Throat: hearing normal Cardiovascular: regular rate and rhythym Respiratory: no respiratory distress Gastrointestinal: normoactive bowel sounds Skin: warm Musculoskeletal: full muscle strength Neurologic: CN II-XII Intact, No pronator drift, No facial droop Psychiatric: interacting appropriately ICD10 Worksheet Patient Problems: Problems Problem Status Onset TIA (transient ischemic attack) Acute Altered mental status Acute Back pain Acute Multiple falls Acute
[2017-12-21] MEDS ORDERED: Herbals/Supplements -Info Only PO SCH (09:00)
[2017-12-21] MEDS ORDERED: ASPIRIN 325 MG TAB PO SCH (09:00)
[2017-12-21] MEDS: DOCUSATE SODIUM 100 MG CAP PO SCH (09:02)
[2017-12-21] MEDS: TAMSULOSIN HCL 0.4 MG CAP PO SCH (09:02)
[2017-12-21] MEDS: CHOLECALCIFEROL VIT D3 2,000 UNITS TAB/CAP PO SCH (09:02)
[2017-12-21] MEDS: ENOXAPARIN 40 MG/0.4 ML SYR SC SCH (09:02)
[2017-12-21] MEDS: BISOPROLOL FUMARATE 5 MG TAB PO SCH (09:03)
[2017-12-21] MEDS: levETIRAcetam 250 MG TAB PO SCH ×2 (09:03→20:40)
[2017-12-21] MEDS: LISINOPRIL 40 MG TAB PO SCH (09:03)
[2017-12-21] MEDS: OMEGA-3 FATTY ACIDS 1,000 MG CAP PO SCH (09:03)
[2017-12-21] MEDS: FINASTERIDE 5 MG TAB PO SCH (09:03)
[2017-12-21] MEDS: EPLERENONE 25 MG TAB PO SCH (09:04)
[2017-12-21] MEDS: Mirabegron [Myrbetriq] 50 MG PO SCH (09:11)
--- NOTE | 2017-12-21 09:35 | NEUROPROG ---
Assessment: [id number] - Neurology Consult: - CC: Transient dysarthria and left sided weakness - HPI: Pt admitted to [facility] on 12/20/17 for transient speech problems and left sided weakness. Symptoms lasted 30 minutes and then resolved. He was admitted for TIA evaluation. He has a history of prior stroke, seizure d/o, and vascular parkinsonism and is followed at my clinic by my colleague, BRENDON Daily. Prior to this event he had been on daily atorvastatin 40 mg qd and aspirin [address] showed no acute changes and carotid U/S showed no significant carotid stenosis. Rhythm was not afib. I initially saw the patient on . His neurologic exam on 12/21/17 showed no focal deficits. He felt back to normal. I felt he may have a TIA so I ordered a brain MRI wo, changed aspirin to plavix 75 mg qd, and agreed with his pending TTE. - PMHx: CVA, vascular parkinsonism, HTN, HLD, Seizure d/o, DM2, BPH - SHx: no tobacco FHx: daughter alive - ROS: Pt denied acute fever, total vision loss, active severe chest pain, respiratory failure, total body severe rash, total bowel/bladder incontinence, psychosis, active seizures, or active bleeding - O: VS reviewed General: Alert Eyes: Fundoscopic exam not able to visualize optic disks CV: Heart RRR, no murmur, no carotid bruit Lungs: Clear to auscultation bilaterally, no rhonchi or rales Neuro: - Mental: . Oriented x person/place/date . concentration appears normal . speech fluency/comprehension normal . memory appears normal . fund of knowledge appear intact - Cranial Nerves: . II: PERRL, VFFTC . III/IV/: EOMI, no nystagmus, normal smooth pursuits, no Ptosis . V: facial sensation intact to LT . VII: face symmetric to eye closure and smile . VIII: hearing intact to conversation . IX/X: uvula raises symmetrically . XI: SCM 5/5 B/L strength . XII: tongue protrudes midline w/nl strength - Motor: . Tone: normal tone in all 4 extremity . Strength: no pronator drift, strength 5/5 throughout (B/L delt, bic, tri, hand teacher public health, hf/he, df/pf) - Reflexes: B/L bic/BR/patella 2/4 - Sensory: all 4 extremity intact to light touch - Coord: qnqhyc-qk-dwyd wnl, LYDIA wnl, pure-ju-ujug wnl - Gait: normal casual gait - Labs: 12/21/17- LDL 34L - Rads: 12/20/17- Head CT: stable noncontrast CT of brain (I personally visualized the images on 12/21/17) - 12/20/17- Carotid Doppler: B/l echogenic carotid bifurcation plaque formation, w/ o hemodynamically limiting carotid stenosis - Assessment: 1. Transient left sided weakness and speech disturbance for 30 minutes on : Neurologic exam on 12/21/17 was nonfocal and unremarkable. DDx of his episode includes TIA/stroke or stroke resurfesence from prior stroke. I will complete stroke evaluation and change aspirin 81 mg qd to plavix 75 mg qd for greater stroke prevention. - Plan: - Change aspirin 81 mg qd to plavix 75 mg qd for stroke prevention (aspirin failure on 12/20/17) - Brain MRI wo - TTE - 24 hour telemetry checking for afib - LDL goal < 70 (34), continue current statin - H1AC goal < 7.0 - BLood pressure < 140/90 - PT/OT/SPeech to determine any rehab needs - F/U in neurology clinic with Beka Yuen 1-5 weeks after hospital discharge Objective: Vital Signs Temp Pulse Resp BP Pulse Ox 37.2 C 58 L 21 H 114/61 95 12/21/17 08:00 12/21/17 09:03 12/21/17 08:00 12/21/17 09:03 12/21/17 08:00 Microbiology 12/20/17 23:40 Respiratory Panel (PCR) - Final Nasal, Sinus - Swab No Organism Detected Laboratory Results 12/21/17 05:10 12/20/17 12/21/17 12/22/17 05:59 05:59 05:59 Output Total 400 250 Balance -400 -250 PT 13.9 SEC (12.0-15.0) 12/20/17 18:51 INR 1.05 (0.83-1.16) 12/20/17 18:51 Allergies/Adverse Reactions: codeine Allergy (Mild, Verified 12/20/17 19:05) Vomiting
--- NOTE | 2017-12-21 13:06 | ECHO ---
[email or web address] [address] [address] Main: [phone] Fax: Transthoracic Echocardiogram Name: CARIDAD KIM MR#: [id number] Study Date: 12/21/2017 Study Time: 11:51 AM Date of : 1930 Age: 87 year(s) Height: 167.6 cm (66 in.) Weight: 81.65 kg (180 lb.) BSA: 1.91 m2 Gender: Male Examination: Echo with Contrast Indication: TIA Image Quality: Contrast: Requested by: Abdoul Argueta BP: 107 mmHg/60 mmHg Heart Rate: Rhythm: Indication: TIA Procedure Staff Loft Worker Apprentice: Rula Pacheco JUVENTINO Reading Physician: Ben Ge MD Requesting Provider: Conclusions: Normal global systolic LV function. The ejection fraction is estimated to be 60-65 %. An agitated saline study was performed and was positive for intracardiac shunting. Mild mitral valve regurgitation is present. Mild tricuspid regurgitation is present. The pulmonary artery pressure is mildly increased. RVSP is 40mmHG.. Measurements: Chambers Valvular Assessment AV/MV Valvular Assessment TV/PV Normal Normal Normal Name Value Range Name Value Range Name Value Range Ao Mamie (MM): 3.2 cm (2.2 cm-3.7 AV Vmax: 1.87 m/s (1 m/s-1.7 TR Vmax: 3.34 mm/s ( - ) cm) m/s) TR PGmax: 45 mmHg ( - ) IVSd (2D): 0.5 cm (0.6 cm-1.1 AV meanP mmHg ( - ) syst. PAP: 50 mmHg ( - ) cm) MV E Vmax: 0.97 m/s ( - ) LVDd (2D): 4.8 cm (4.2 cm-5.9 MV A Vmax: 1.21 m/s ( - ) cm) MV E/A: 0.80 ( - ) LVDs (2D): 3.3 cm (2.1 cm-4 cm) LVPWd (2D): 0.8 cm (0.6 cm-1 cm) LVEF (MOD4): 72 % (>=55 %) EF Range: 60-65 % Continued Measurements: Chambers Valvular Assessment AV/MV Valvular Assessment TV/PV Name Value Name Value Name Value LADs: 4.4 cm MV E' Septal: 0.05 m/s CVP (est.): 5 mmHg Patient: CARIDAD KIM Study Date: 12/21/2017 Page 1 of 2 11:51 AM LADs Lon.6 cm MV E/E' Septal: 20.30 LA Area: 25.9 cm2 MV E/E' Lateral: 12.30 LA Volume: 82 ml LA Volume Index: 42.9 ml/m2 Additional Vessels Name Value Ao Ascendin.9 cm Findings: Left Ventricle: Normal size left ventricle. No LV hypertrophy. Normal global systolic LV function. The ejection fraction is estimated to be 60-65 %. No regional wall motion abnormality. Diastolic dysfunction is present. . Right Ventricle: Normal size right ventricle. Left Atrium: The left atrium is mildly dilated. An agitated saline study was performed and was positive for intracardiac shunting. Right Atrium: The right atrium is normal in size. Mitral Valve: Mild mitral valve leaflet calcification is present. Mild mitral valve regurgitation is present. Aortic Valve: The aortic valve is tri-leaflet. Mild aortic cusp calcification is noted. Tricuspid Valve: The tricuspid valve is normal in appearance and function. Mild tricuspid regurgitation is present. The pulmonary artery pressure is mildly increased. RVSP is 40mmHG.. Pulmonic Valve: The pulmonic valve is normal in appearance and function. Trivial to mild pulmonic valve regurgitation. Aorta: The aorta is normal. Pericardium: No pericardial effusion. (No Signature Object) Patient: CARIDAD KIM Study Date: 12/21/2017 Page 2 of 2 11:51 AM [id number]
[2017-12-21] MEDS: CLOPIDOGREL BISULFATE 75 MG TAB PO SCH (14:29)
--- NOTE | 2017-12-21 16:20 | ASMTCMCOM ---
CM Note CM Note Notes: Pt with h/o Parkinsonism in for TIA. Pt eager to d/c, needs tele monitoring and can d/c in the morning. Pt has skilled HHC he says with [facility], and current unskilled care for 12 hours 8am to 8pm with [facility]. OT and PT rec 24/hr care, pt and dghtr Elodia are able to arrange with current provider [facility]. CM to follow. Date Signed: 12/21/2017 04:19 PM Electronically Signed By:KEIRA Cesar
--- NOTE | 2017-12-21 19:02 | PDMN ---
Medical Necessity Medical necessity: Change to IP, as of 12/21/17, per ACCREDITATION MANAGER & MCG M-360; los >2 mn for ongoing management of acute TIA w/L-sided weakness & speech disturbance; pt requiring MRI, additional cardiac monitoring & therapies; comorbid advanced age , diabetes, vascular parkinsonism, poor balance/falls, cognitive impairment
[2017-12-21] MEDS: ATORVASTATIN CALCIUM 40 MG TAB PO SCH (20:40)
[2017-12-21] MEDS: amLODIPine BESYLATE 5 MG TAB PO SCH (20:40)
[2017-12-22 07:31] VITALS: BP 125/82
--- NOTE | 2017-12-22 08:51 | HOSPPROG ---
Hospitalist Progress Note Assessment/Plan: 87-year-old male presenting with acute TIA *TIA, transient left sided weakness and speech disturbance -carotid doppler: B/l echogenic carotid bifurcation plaque formation, w/o hemodynamically limiting carotid stenosis -asa changed to Plavix -echo chows +intracardiac shunt -neurology recommending to monitor for 24 hours to r/o any afib (patient arrived to the floor last night around 8 p.m.) -CT of head stable -LDL is 34 -MRI shows nothing acute; old lacunar infarct -reviewed cardiac monitor and he has been in sinus rhythm -f/u with neurology in 1-5 weeks w neurology *vascular parkinsonism *hypokalemia *htn -bp stable *diabetes -A1c is mildly elevated at 6.5 *plan;dc home w f/u with neurology Subjective: Yoni has no complaints, wants to go home Objective: Vital Signs Temp Pulse Resp BP Pulse Ox 36.7 C 57 L 18 125/82 H 94 12/22/17 07:28 12/22/17 07:28 12/22/17 07:28 12/22/17 07:28 12/22/17 07:28 12/21/17 12/22/17 12/23/17 05:59 05:59 05:59 Intake Total 500 Output Total 350 300 Balance 150 -300 PT 13.9 SEC (12.0-15.0) 12/20/17 18:51 INR 1.05 (0.83-1.16) 12/20/17 18:51 - Physical Exam Constitutional: no apparent distress, appears nourished, not in pain Eyes: PERRL Ears, Nose, Mouth, Throat: hard of hearing Cardiovascular: regular rate and rhythym Respiratory: no respiratory distress Skin: warm Musculoskeletal: generalized weakness Neurologic: sensation intact bilaterally, CN II-XII Intact, No facial droop Psychiatric: interacting appropriately ICD10 Worksheet Patient Problems: Problems Problem Status Onset TIA (transient ischemic attack) Acute Altered mental status Acute Back pain Acute Multiple falls Acute
[2017-12-22] MEDS: BISOPROLOL FUMARATE 5 MG TAB PO SCH (09:05)
[2017-12-22] MEDS: DOCUSATE SODIUM 100 MG CAP PO SCH (09:05)
[2017-12-22] MEDS: levETIRAcetam 250 MG TAB PO SCH (09:05)
[2017-12-22] MEDS: EPLERENONE 25 MG TAB PO SCH (09:06)
[2017-12-22] MEDS: OMEGA-3 FATTY ACIDS 1,000 MG CAP PO SCH (09:06)
[2017-12-22] MEDS: FINASTERIDE 5 MG TAB PO SCH (09:06)
[2017-12-22] MEDS: LISINOPRIL 40 MG TAB PO SCH (09:06)
[2017-12-22] MEDS: CHOLECALCIFEROL VIT D3 2,000 UNITS TAB/CAP PO SCH (09:06)
[2017-12-22] MEDS: CLOPIDOGREL BISULFATE 75 MG TAB PO SCH (09:06)
[2017-12-22] MEDS: TAMSULOSIN HCL 0.4 MG CAP PO SCH (09:06)
[2017-12-22] MEDS: Mirabegron [Myrbetriq] 50 MG PO SCH (09:07)
--- NOTE | 2017-12-22 09:23 | PDIAF ---
- Diagnosis Diagnosis: TIA Code Status: Full Code - Medication Management Discharge Medications: Medications to Continue on Transfer Atorvastatin Calcium [Lipitor 40 mg (*)] 40 mg PO HS 12/20/17 [Last Taken 20:00] Bisoprolol Fumarate [Zebeta (*)] 2.5 mg PO DAILY 12/20/17 [Last Taken 12/20/17 09:00] Cholecalciferol (Vitamin D3) [Vitamin D3] 4,000 unit PO DAILY 12/20/17 [Last Taken 12/20/17 09:00] Docusate Sodium [Colace 100 MG (*)] 200 mg PO DAILY 12/20/17 [Last Taken 09:00] Eplerenone [Inspra 25 MG (*)] 25 mg PO DAILY 12/20/17 [Last Taken 12/20/17 09:00 ] Finasteride [Proscar 5 MG (*)] 5 mg PO DAILY 12/20/17 [Last Taken 12/20/17 09:00 ] Herbals/Supplements -Info Only 1 ea PO DAILY 12/20/17 [Last Taken 12/20/17 09:00 ] Keppra 250 mg (*) 250 mg PO BID 12/20/17 [Last Taken 12/20/17 09:00] Lisinopril [Zestril 40 mg (*)] 40 mg PO DAILY 12/20/17 [Last Taken 12/20/17 09: 00] Mirabegron [Myrbetriq] 50 mg PO DAILY 12/20/17 [Last Taken 12/20/17 09:00] Harleigh-3 Fatty Acids [Fish Oil 1000 mg (*)] 1,000 mg PO DAILY 12/20/17 [Last Taken 12/20/17 09:00] Tamsulosin HCl [Flomax 0.4 MG (*)] 0.8 mg PO DAILY 12/20/17 [Last Taken 09:00] Tears/Dextran 70/Hypromellose [Natural Balance Tears (*)] 1 drop EACHEYE TID PRN 12/20/17 [Last Taken Unknown] Triamterene/Hydrochlorothiazid [Triamterene-Hctz 37.5-25 mg Tb] 1 tab PO DAILY 12/20/17 [Last Taken 12/20/17 09:00] amLODIPine BESYLATE [Norvasc 5 mg (*)] 5 mg PO HS 12/20/17 [Last Taken 12/19/17 20:00] Clopidogrel Bisulfate [Plavix (*)] 75 mg PO DAILY #60 tab 12/22/17 [Last Taken Unknown] Discharge Medications: Refer to the Discharge Home Medication list for PRN reason. - Orders Services needed: Home Care, Physical Therapy, Occupational Therapy Home Care Face to Face: I certify that this patient was under my care and that I had the required [id number] encounter meeting the encounter requirements on the discharge day. My findings support the fact that the patient is homebound as defined in Home Care Face to Face Continued: CMS Chapter 7 Medicare Benefits Manual 30.1.1 , The condition of the patient is such that there exists a normal inability to leave home and consequently, leaving home would require a considerable and taxing effort. Diet Recommendation: ADA 2000 consistent carb Diet Texture: Regular Texture Diet Additional Instructions: stop aspirin take Plavix instead, script sent f/u with neurology in 1-4 weeks if you have any stroke symptom; return to the ER your hgb A1c was mildly elevated; f/u with your PCP you have an intracardiac shunt - f/u with neurology - Follow Up Care Current Providers and Referrals: Patient,NotPresent [Unknown] - As per Instructions Walt Yuen PA [Physician Supervisor [employer]] -
[2017-12-22] MEDS: ENOXAPARIN 40 MG/0.4 ML SYR SC SCH (09:35)
--- NOTE | 2017-12-22 09:59 | NEUROPROG ---
Assessment: [id number] - Neurology Consult: - CC: F/U for Transient dysarthria and left sided weakness - Narrative Summary: Pt admitted to [facility] on 12/20/17 for transient speech problems and left sided weakness. Symptoms lasted 30 minutes and then resolved. He was admitted for TIA evaluation. He has a history of prior stroke, seizure d/o, and vascular parkinsonism and is followed at my clinic by my colleague, BRENDON Daily. Prior to this event he had been on daily atorvastatin 40 mg qd and aspirin [address] showed no acute changes and carotid U/S showed no significant carotid stenosis. Rhythm was not afib. I initially saw the patient on . His neurologic exam on 12/21/17 showed no focal deficits. He felt back to normal. I felt he may have a TIA so I ordered a brain MRI wo, changed aspirin to plavix 75 mg qd, and agreed with his pending TTE. - HPI: F/U 12/22/17. Brain MRI showed old stroke but no acute stroke. Did show moderate cervical stenosis but given normal neurologic exam this does not appear symptomatic. TTE showed no thrombus but did note some cardiac shunting. Pt remains symptoms free. At this time I would not recommend any additional treatment. No further neurologic w/u needed as an inpatient. - PMHx: CVA, vascular parkinsonism, HTN, HLD, Seizure d/o, DM2, BPH - SHx: no tobacco FHx: daughter alive - ROS: Pt denied acute fever, total vision loss, active severe chest pain, respiratory failure, total body severe rash, total bowel/bladder incontinence, psychosis, active seizures, or active bleeding - Labs: 12/21/17- LDL 34L - Rads: 12/20/17- Carotid Doppler: B/l echogenic carotid bifurcation plaque formation, w/ o hemodynamically limiting carotid stenosis - 12/21/17- Brain MRI: Old lacunar infarct right basal ganglia and left cerebellar hemisphere. No acute infarct, acute hemorrhage, hydrocephalus, mass effect, or herniation. Moderate cerebral atrophy. severe microvascular ischemic gliosis, Moderate central canal stenosis at C3-C4 secondary to degenerative grade 1 anterolisthesis - 12/21/17- TTE: EF 60-65%, no thrombus, positive intracardiac shunting - Assessment: 1. Transient left sided weakness and speech disturbance for 30 minutes on : Neurologic exam on 12/21/17 was nonfocal and unremarkable. Brain MRI showed old stroke but no acute stroke. TTE showed no thrombus but did note some cardiac shunting. DDx of his episode includes TIA (seems less likely given 30 minutes of symptoms but no MRI findings of ischemia) or stroke resurfesence from prior stroke. I recommended changing aspirin 81 mg qd to plavix 75 mg qd for greater stroke prevention. - 2. Moderate Cervical Spinal Stenosis noted on brain MRI on 12/21/17: Brain MRI did show moderate cervical stenosis but given normal neurologic exam this does not appear symptomatic. - Plan: - Change aspirin 81 mg qd to plavix 75 mg qd for stroke prevention (aspirin failure on 12/20/17) - Although TTE showed intracardiac shunting, the fact that I am not sure if he actually had a TIA or not makes me feel that any cardiac procedures is not worth the risk at this time - LDL goal < 70 (34), continue current statin - H1AC goal < 7.0 - BLood pressure < 140/90 - PT/OT/SPeech to determine any rehab needs - F/U in neurology clinic with Beka Yuen 1-5 weeks after hospital discharge - No further inpatient w/u needed, neurology will sign off - 35 min spent with patient, majority of time spent counseling on his symptoms, prognosis, and treatment plan Objective: Vital Signs Temp Pulse Resp BP Pulse Ox 36.7 C 57 L 18 125/82 H 94 12/22/17 07:28 12/22/17 09:05 12/22/17 07:28 12/22/17 09:06 12/22/17 07:28 12/21/17 12/22/17 12/23/17 05:59 05:59 05:59 Intake Total 500 Output Total 350 300 Balance 150 -300 PT 13.9 SEC (12.0-15.0) 12/20/17 18:51 INR 1.05 (0.83-1.16) 12/20/17 18:51 Allergies/Adverse Reactions: codeine Allergy (Mild, Verified 12/20/17 19:05) Vomiting
--- NOTE | 2017-12-22 10:03 | GDS ---
DISCHARGE DIAGNOSES: 1. Transient ischemic attack with transient left-sided weakness and speech disturbance. 2. Vascular Parkinsonism. 3. Hypokalemia. 4. Hypertension. 5. Diabetes. CONSULTATIONS: Dr. Julito Aiken. HISTORY OF PRESENT ILLNESS: Briefly, the patient is an 87-year-old gentleman who presented to the emergency room with transient dysarthria and left-sided weakness. His symptoms lasted approximately 30 minutes and resolved. He has a history of prior stroke, seizure disorder, and vascular Parkinsonism, and is followed at the Neurology Clinic. During his stay, he was placed on the adult remedial education instructor, which showed sinus rhythm. His head CT was stable. His carotid Doppler shows echogenic carotid bifurcation plaque formation without hemodynamically limiting carotid stenosis. Brain MRI showed an old lacunar infarct, but nothing acute. An echocardiogram was performed, which did show a positive intracardiac shunt. He will be discharged home. He will be changed from aspirin to Plavix. HOSPITAL COURSE: 1. TIA symptoms have overall resolved. Follow up with Neurology in 1-5 weeks. 2. Vascular Parkinsonism, stable. 3. Hypokalemia, resolved. 4. Hypertension, blood pressure is stable. 5. Diabetes. His A1c is mildly elevated at 6.5. DISCHARGE CONDITION: Stable. VITAL SIGNS: Blood pressure is 125/82, heart rate 76, respiratory rate of 18, O2 saturation on room air 94%, temperature is 36.7 Celsius. DISCHARGE MEDICATIONS: Please see the EMR. DISCHARGE INSTRUCTIONS: 1. Stop aspirin. 2. Plavix is a new medication for him. 3. If he develops any stroke-like symptoms to return to the ER. /[id number]/MODL MTDD
--- NOTE | 2017-12-22 12:30 | ASDISCHSUM ---
Discharge Information Plan Status:Home with Home Health Medically Cleared to Leave: Discharge Date:12/22/2017 10:43 AM D/C Disposition:Home Health Service ADT D/C Disposition:Home, Routine, Self-Care Projected Discharge Date:12/22/2017 11:00 AM Transportation at D/C: Discharge Delay Reason: Follow-Up Date:12/22/2017 11:00 AM Discharge Slot: Final Diagnosis: Placement Information Referral Type:*Home Health Care Services Referral ID:[id number] Provider Name:[facility] Address 1:[address] [place] [address] Address 2: City:[place] Selection Factors: State:[place] Patient Contact Information Contact Name:MARTA Relationship:Daughter Address: City: [facility] Phone: [facility]/Zip Code: Email: Financial Information Financial Class:Medicare Primary Plan Desc:MEDICARE INPATIENT Primary Plan Number:[id number] Secondary Plan Desc:AARP/MDR SUPPLEMENT Secondary Plan Number:[id number] Assessment Information LACE LACE Length of stay for Answers: 2 days current admission Acuity / Level of Answers: Yes Care: Did the patient have an inpatient admission? Comorbidities - select Answers: Cerebrovascular disease all that apply (CVA, TIA, aneurysms, vasc ular dementia) Diabetes (uncontrolled or controlled) History of falls Opioid dependence / Chronic pain Other Notes: HTN; Seizure disorder # of Emergency department Answers: 1-2 visits in the last 6 months Score: 16 Date Signed: 12/22/2017 12:27 PM Electronically Signed By:KEIRA Cesar [facility] CM Progress Note CM Note CM Note Notes: Pt with h/o Parkinsonism in for TIA. Pt eager to d/c, needs tele monitoring and can d/c in the morning. Pt has skilled HHC he says with [facility], and current unskilled care for 12 hours 8am to 8pm with [facility]. OT and PT rec 24/hr care, pt and jose a Clifton are able to arrange with current provider [facility]. CM to follow. Date Signed: 12/21/2017 04:19 PM Electronically Signed By:KEIRA Cesar BC CM Progress Note CM Note CM Note Notes: Pt medically stable for d/c back to [facility] with 24 hour care and [facility] PT. Orders to be obtained via [employer]. Pt jose a Clifton to transport home. Date Signed: 12/22/2017 12:29 PM Electronically Signed By:KEIRA Cesar Intervention Information Intervention Type:*BENAVIDES-Signed Date of Service:12/21/2017 11:53 AM Patient Type:Observation Staff Member:Breanna Degroot Hours: Discipline: Severity: Comment:
--- NOTE | 2017-12-22 12:30 | ASMTCMCOM ---
CM Note CM Note Notes: Pt medically stable for d/c back to [facility] with 24 hour care and [facility] PT. Orders to be obtained via [employer]. Pt dghtr Elodia to transport home. Date Signed: 12/22/2017 12:29 PM Electronically Signed By:KEIRA Cesar
== END 2017-12-22 10:43 | disposition home or self-care (01) | DRG 69 ==
LOC: EDUNIT# → F3N 19:57 → OBSVTOIN 12-21 13:48
PROVIDERS: ADMIT Internal Medicine; ATTEND Internal Medicine
DX: G45.9 Transient cerebral ischemic attack, unspecified (principal); G21.4 Vascular parkinsonism; E87.6 Hypokalemia; G31.84 Mild cognitive impairment of uncertain or unknown etiology; E11.9 Type 2 diabetes mellitus without complications; N40.0 Benign prostatic hyperplasia without lower urinary tract symptoms; I10 Essential (primary) hypertension; Z91.81 History of falling
CPT/HCPCS: 82435-PO; 82565-PO; 82947-PO; 84132-PO; 84295-PO; 84484-PO; 84520-PO; 85014-PO; 92523-GN; 97161-GP; 97165-GO; 97535-GO; G0378; G8978-GP-CK; G8979-GP-CI; G8987-GO-CI; G8988-GO-CI; G8989-GO-CI; G9168-GN-CJ; G9169-GN-CJ; G9170-GN-CJ; J1650; J2405; J3480

== ENCOUNTER 2018-04-21 14:03 | Day surgery (SDC) | payer OTHER, MEDICARE ==
[2018-04-21] MEDS ORDERED: LIDOCAINE 1% 300 MG/30 ML SDV SC ONE (14:06)
--- NOTE | 2018-04-21 15:25 | PDHPUP ---
History & Physical Update H&P update statement: This history and physical update is based on an assessment of the patient which was completed after admission or registration (within 24 hours), but prior to the surgery/procedure. H&P update: H&P reviewed & patient examined, no change in patient's condition since H&P completed
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
== END 2018-04-21 15:30 | disposition home or self-care (01) ==
LOC: FCATH 14:03
PROVIDERS: ATTEND Internal Medicine Interventional Cardiology
PROC: 0JH602Z Insertion of Monitoring Device into Chest Subcutaneous Tissue and Fascia, Open Approach (ICD-10-PCS; principal; 2018-04-21)
DX: G45.9 Transient cerebral ischemic attack, unspecified (principal); R00.0 Tachycardia, unspecified; I45.10 Unspecified right bundle-branch block; I10 Essential (primary) hypertension; N40.1 Benign prostatic hyperplasia with lower urinary tract symptoms; Z79.82 Long term (current) use of aspirin; Z86.73 Personal history of transient ischemic attack (TIA), and cerebral infarction without residual deficits; Z82.3 Family history of stroke; Z96.659 Presence of unspecified artificial knee joint
CPT/HCPCS: C1764

== ENCOUNTER 2018-04-29 20:23 | Inpatient (IN) | payer OTHER, MEDICARE ==
--- NOTE | 2018-04-29 20:33 | EDPHY ---
H & P Time Seen by Provider: 04/29/18 20:25 HPI/ROS: CHIEF COMPLAINT: Slurred speech HISTORY OF PRESENT ILLNESS: At about 8:10 p.m. Tonight the patient suddenly developed slurred speech and lethargy, he says that he recalls it is a feeling like he was going to pass out or faint. EMS was called by his caregiver when they arrived his heart rate was about 40 and his blood pressure was about 60 systolic. He got atropine IV and his heart rate and blood pressure improved and his symptoms completely resolved. Symptoms were severe, now gone. Not associated with headache or seizure. Better with atropine. REVIEW OF SYSTEMS: Eye: no change in vision ENT: no sore throat Cardiac: no chest pain or syncope Pulmonary: no cough or SOB Abdomen: no vomiting, diarrhea, abdominal pain Musculoskeletal: no back pain Skin: Bruising on the left chest from implanted cardiac device. Neuro: no headache Constitutional: no fever : no urinary symptoms A comprehensive 10 point review of systems is otherwise negative aside from elements mentioned in the history of present illness. PAST MEDICAL HISTORY: H&P and discharge summary from December 2017 personally reviewed includes TIA, vascular parkinsonism, hypertension, diabetes, seizure disorder, hyperlipidemia, prostatic hypertrophy. Social history: Here with his daughter and caregiver General Appearance: Alert and conversant, cooperative. Eyes: No scleral icterus. ENT, Mouth: Normal mucous membranes. Respiratory: Normal respiratory effort, breath sounds equal, lungs are clear to auscultation. Cardiovascular: Regular rate and rhythm. Gastrointestinal: Abdomen is soft and non tender. Neurological: Alert, face symmetric, normal motor and sensory in extremities. Skin: Warm and dry, no rashes. Musculoskeletal: No peripheral edema. Psychiatric: Not agitated. Emergency Department course/MDM: EMS strips show sinus bradycardia rate of 40, suspect that was the reason for his symptoms. Plan head CT, cardiac monitoring, CBC chemistry and troponin. Admission for cardiology consultation. 2100: CT head negative for bleed or other acute abnormality per Dr. Mabry, discussed with Dr. Hill will consult in the morning, NPO after midnight discussed with Dr. Damon. 2114: Lab shows increased BUN and creatinine consistent with acute kidney injury, IV normal saline 1 L. Smoking Status: Never smoked Constitutional: Initial Vital Signs Temperature (C) 36.9 C 04/29/18 20:28 Heart Rate 60 04/29/18 20:28 Respiratory Rate 18 04/29/18 20:28 Blood Pressure 105/69 04/29/18 20:28 O2 Sat (%) 89 L 04/29/18 20:28 O2 Delivery Mode Room Air Allergies/Adverse Reactions: codeine Allergy (Mild, Verified 12/20/17 19:05) Vomiting Home Medications: Medication Instructions Recorded Atorvastatin Calcium [Lipitor 40 40 mg PO HS 12/20/17 mg (*)] Bisoprolol Fumarate [Zebeta (*)] 2.5 mg PO DAILY 12/20/17 Cholecalciferol (Vitamin D3) 4,000 unit PO DAILY 12/20/17 [Vitamin D3] Docusate Sodium [Colace 100 MG (*)] 200 mg PO DAILY 12/20/17 Eplerenone [Inspra 25 MG (*)] 25 mg PO DAILY 12/20/17 Finasteride [Proscar 5 MG (*)] 5 mg PO DAILY 12/20/17 Herbals/Supplements -Info Only 1 ea PO DAILY 12/20/17 Keppra 250 mg (*) 250 mg PO BID 12/20/17 Lisinopril [Zestril 40 mg (*)] 40 mg PO DAILY 12/20/17 Mirabegron [Myrbetriq] 50 mg PO DAILY 12/20/17 [place]-3 Fatty Acids [Fish Oil 1000 1,000 mg PO DAILY 12/20/17 mg (*)] Tamsulosin HCl [Flomax 0.4 MG (*)] 0.8 mg PO DAILY 12/20/17 Tears/Dextran 70/Hypromellose 1 drop EACHEYE TID PRN 12/20/17 [Natural Balance Tears (*)] Triamterene/Hydrochlorothiazid 1 tab PO DAILY 12/20/17 [Triamterene-Hctz 37.5-25 mg Tb] amLODIPine BESYLATE [Norvasc 5 mg 5 mg PO HS 12/20/17 (*)] Clopidogrel Bisulfate [Plavix (*)] 75 mg PO DAILY #60 tab 12/22/17 Medical Decision Making - Diagnostics EKG Interpretation: 12-lead EKG interpreted by me; official reading is in computer system. My interpretation is sinus rhythm with right bundle branch block and inferior Q- waves. Rate 60. Imaging Results: Imaging Impressions Head CT 04/29/18 20:33 Impression: 1. Elderly brain with diffuse atrophy and probable extensive white matter small vessel disease. 2. Nothing acute is identified. Results called and discussed with KEON BROWN M.D. on 04/29/2018 at 20:58. Imaging: Discussed imaging studies w/ campus chaplain Radiologist Differential Diagnosis: Differential for slurred speech considered including but not limited to TIA, stroke, intracranial bleed, hypoglycemia, hypotension. Consult/Admit Bed Type: [place] [id number] - Data Points Laboratory Results: Laboratory Results 04/29/18 20:37 04/29/18 20:37 04/29/18 04/29/18 04/29/18 20:43 20:37 20:37 WBC 6.01 10^3/uL 10^3/uL (3.80-9.50) RBC 4.73 10^6/uL 10^6/uL (4.40-6.38) Hgb 15.3 g/dL g/dL (13.7-17.5) Hct 43.8 % % (40.0-51.0) MCV 92.6 fL fL (81.5-99.8) MCH 32.3 pg pg (27.9-34.1) MCHC 34.9 g/dL g/dL (32.4-36.7) RDW 13.2 % % (11.5-15.2) Plt Count 230 10^3/uL 10^3/uL (150-400) MPV 9.6 fL fL (8.7-11.7) Neut % (Auto) 68.2 % % (39.3-74.2) Lymph % (Auto) 16.8 % % (15.0-45.0) [place] % (Auto) 12.0 % % (4.5-13.0) Eos % (Auto) 2.5 % % (0.6-7.6) Baso % (Auto) 0.3 % % (0.3-1.7) Nucleat RBC Rel Count 0.0 % % (0.0-0.2) Absolute Neuts (auto) 4.10 10^3/uL 10^3/uL (1.70-6.50) Absolute Lymphs (auto) 1.01 10^3/uL 10^3/uL (1.00-3.00) Absolute Monos (auto) 0.72 10^3/uL 10^3/uL (0.30-0.80) Absolute Eos (auto) 0.15 10^3/uL 10^3/uL (0.03-0.40) Absolute Basos (auto) 0.02 10^3/uL 10^3/uL (0.02-0.10) Absolute Nucleated RBC 0.00 10^3/uL 10^3/uL (0-0.01) Immature Gran % 0.2 % % (0.0-1.1) Immature Gran # 0.01 10^3/uL 10^3/uL (0.00-0.10) Sodium 132 mEq/L L mEq/L (135-145) Potassium 3.5 mEq/L mEq/L (3.5-5.2) Chloride 94 mEq/L L mEq/L (97-110) Carbon Dioxide 32 mEq/l H mEq/l (22-31) Anion Gap 6 mEq/L mEq/L (6-14) BUN 27 mg/dL H mg/dL (7-23) Creatinine 1.7 mg/dL H mg/dL (0.7-1.3) Estimated GFR 38 Glucose 146 mg/dL H mg/dL (70-100) Calcium 9.4 mg/dL mg/dL (8.5-10.4) POC Troponin I 0.00 ng/mL ng/mL (0.00-0.08) Medications Given: Discontinued Medications Sodium Chloride (Ns) 1,000 mls @ 0 mls/hr IV EDNOW ONE; Wide Open PRN Reason: Protocol Stop: 04/29/18 21:16 Last Admin: 04/29/18 21:20 Dose: 1,000 mls Point of Care Test Results: Chemistry 04/29/18 20:43 POC Troponin I 0.00 ng/mL ng/mL (0.00-0.08) Departure - Departure Disposition: [facility] Acute Clinical Impression: Bradycardia, Acute kidney injury Condition: Good
--- NOTE | 2018-04-29 20:44 | CPEKG ---
Test Reason : OPEN Blood Pressure : / mmHG Vent. Rate : 060 BPM Atrial Rate : 060 BPM P-R Int : 176 ms QRS Dur : 155 ms QT Int : 461 ms P-R-T Axes : 016 267 010 degrees QTc Int : 461 ms Sinus rhythm Right bundle branch block Inferior infarct, old Confirmed by Fred Almonte ([id number]) on 04/29/2018 8:43:16 PM Referred By: Fred Almonte Confirmed By:Fred Almonte
[2018-04-29 20:49] LABS: PLATELET COUNT 230 10^3/uL (150-400)
[2018-04-29] MEDS ORDERED: NS 1,000 ML IV ONE (21:15)
[2018-04-29] MEDS ORDERED: ONDANSETRON 4 MG/2 ML VIAL IVP PRN (21:58)
[2018-04-29] MEDS ORDERED: ONDANSETRON DISINTEGRATING 4 MG TAB PO PRN (21:58)
[2018-04-29] MEDS ORDERED: ACETAMINOPHEN 325 MG TAB PO PRN (21:58)
--- NOTE | 2018-04-29 23:10 | PDGENHP ---
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 This has been a recurrent issue for him. He was in his usual state of health when he suddenly felt very lethargic. His school counsellor said he developed slurred speech. He did not lose control of his bladder/bowels and did not seize. He had no antecedent chest pain or palpitations. EMS arrived and found his HR in the 40s ( caught on telemetry strip, sinus) and BP 60/40s. He was given a dose of atropine and his HR and BP improved and his symptoms resolved. He is currently feeling well with no complaints. He has had similar episodes such as this in the past and they have been attributed to TIAs. He did recently have a 30 days holter monitor which did not show any bradycardia but he also did not have any episodes. In the ED, his HR was in the 60s and his BP was normal. Cardiology was consulted. He is being admitted for further management. History Information - Allergies/Home Medication List Allergies/Adverse Reactions: codeine Allergy (Mild, Verified 04/29/18 22:04) Vomiting Home Medications: Atorvastatin Calcium [Lipitor 40 mg (*)] 40 mg PO HS 12/20/17 [Last Taken 21:00] Bisoprolol Fumarate [Zebeta (*)] 2.5 mg PO DAILY 12/20/17 [Last Taken 04/29/18 09:00] Cholecalciferol (Vitamin D3) [Vitamin D3] 4,000 unit PO DAILY 12/20/17 [Last Taken 04/29/18 09:00] Docusate Sodium [Colace 100 MG (*)] 200 mg PO DAILY 12/20/17 [Last Taken 09:00] Eplerenone [Inspra 25 MG (*)] 25 mg PO DAILY 12/20/17 [Last Taken 04/29/18 09:00 ] Finasteride [Proscar 5 MG (*)] 5 mg PO DAILY 12/20/17 [Last Taken 04/29/18 09:00 ] Herbals/Supplements -Info Only 1 ea PO DAILY 12/20/17 [Last Taken 04/29/18 09:00 ] Lisinopril [Zestril 40 mg (*)] 40 mg PO DAILY 12/20/17 [Last Taken 04/29/18 09: 00] Mirabegron [Myrbetriq] 50 mg PO DAILY 12/20/17 [Last Taken 04/29/18 09:00] [place]-3 Fatty Acids [Fish Oil 1000 mg (*)] 1,000 mg PO DAILY 12/20/17 [Last Taken 04/29/18 09:00] Tears/Dextran 70/Hypromellose [Natural Balance Tears (*)] 1 drop EACHEYE TID PRN 12/20/17 [Last Taken 04/29/18 09:00] Triamterene/Hydrochlorothiazid [Triamterene-Hctz 37.5-25 mg Tb] 1 tab PO HS 10/30 [Last Taken 04/28/18 21:00] amLODIPine BESYLATE [Norvasc 5 mg (*)] 5 mg PO HS 12/20/17 [Last Taken 04/28/18 21:00] levETIRAcetam [Levetiracetam] 250 mg PO BID 04/29/18 [Last Taken 04/29/18 09:00] I have personally reviewed and updated: family history, medical history, social history, surgical history - Past Medical History Additional medical history: 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 Hypertension. Hyperlipidemia. Seizure disorder. Diabetes mellitus type 2. BPH. Poor balance, cognitive impairment, falls - Surgical History Reports: no pertinent surgical hx - Social History Smoking Status: Never smoked Alcohol Use: Rarely Drug Use: None Additional social history: Independent at [facility] with 12 hr per day of caretakers on site. His is currently in hospice care. Review of Systems Review of Systems: ROS: 10pt was reviewed & negative except for what was stated in HPI & below Physical Exam Physical Exam: Temp Pulse Resp BP Pulse Ox 36.9 C 75 18 122/65 H 93 04/29/18 20:28 04/29/18 21:34 04/29/18 21:34 04/29/18 21:34 04/29/18 21:34 Constitutional: no apparent distress, appears nourished, not in pain Eyes: PERRL, anicteric sclera, EOMI Ears, Nose, Mouth, Throat: moist mucous membranes, hearing normal, ears appear normal, no oral mucosal ulcers Cardiovascular: regular rate and rhythym, no murmur, rub, or gallop, No edema Respiratory: no respiratory distress, no rales or rhonchi, clear to auscultation Gastrointestinal: normoactive bowel sounds, soft, non-tender abdomen, no palpable masses Genitourinary: no bladder fullness, no bladder tenderness Skin: warm, normal color, no rashes or abrasions, no fluctuance, no induration, No mottled Musculoskeletal: full muscle strength, no muscle tenderness, normal joint ROM, no joint effusions Neurologic: AAOx3 Psychiatric: interacting appropriately, not anxious, not encephalopathic, thought process linear Lab Data & Imaging Review 04/29/18 20:37 04/29/18 20:37 WBC 6.01 10^3/uL (3.80-9.50) 04/29/18 20:37 RBC 4.73 10^6/uL (4.40-6.38) 04/29/18 20:37 Hgb 15.3 g/dL (13.7-17.5) 04/29/18 20:37 Hct 43.8 % (40.0-51.0) 04/29/18 20:37 MCV 92.6 fL (81.5-99.8) 04/29/18 20:37 MCH 32.3 pg (27.9-34.1) 04/29/18 20:37 MCHC 34.9 g/dL (32.4-36.7) 04/29/18 20:37 RDW 13.2 % (11.5-15.2) 04/29/18 20:37 Plt Count 230 10^3/uL (150-400) 04/29/18 20:37 MPV 9.6 fL (8.7-11.7) 04/29/18 20:37 Neut % (Auto) 68.2 % (39.3-74.2) 04/29/18 20:37 Lymph % (Auto) 16.8 % (15.0-45.0) 04/29/18 20:37 [place] % (Auto) 12.0 % (4.5-13.0) 04/29/18 20:37 Eos % (Auto) 2.5 % (0.6-7.6) 04/29/18 20:37 Baso % (Auto) 0.3 % (0.3-1.7) 04/29/18 20:37 Nucleat RBC Rel Count 0.0 % (0.0-0.2) 04/29/18 20:37 Absolute Neuts (auto) 4.10 10^3/uL (1.70-6.50) 04/29/18 20:37 Absolute Lymphs (auto) 1.01 10^3/uL (1.00-3.00) 04/29/18 20:37 Absolute Monos (auto) 0.72 10^3/uL (0.30-0.80) 04/29/18 20:37 Absolute Eos (auto) 0.15 10^3/uL (0.03-0.40) 04/29/18 20:37 Absolute Basos (auto) 0.02 10^3/uL (0.02-0.10) 04/29/18 20:37 Absolute Nucleated RBC 0.00 10^3/uL (0-0.01) 04/29/18 20:37 Immature Gran % 0.2 % (0.0-1.1) 04/29/18 20:37 Immature Gran # 0.01 10^3/uL (0.00-0.10) 04/29/18 20:37 Sodium 132 mEq/L (135-145) L 04/29/18 20:37 Potassium 3.5 mEq/L (3.5-5.2) 04/29/18 20:37 Chloride 94 mEq/L (97-110) L 04/29/18 20:37 Carbon Dioxide 32 mEq/l (22-31) H 04/29/18 20:37 Anion Gap 6 mEq/L (6-14) 04/29/18 20:37 BUN 27 mg/dL (7-23) H 04/29/18 20:37 Creatinine 1.7 mg/dL (0.7-1.3) H 04/29/18 20:37 Estimated GFR 38 04/29/18 20:37 Glucose 146 mg/dL (70-100) H 04/29/18 20:37 Calcium 9.4 mg/dL (8.5-10.4) 04/29/18 20:37 POC Troponin I 0.01 ng/mL (0.00-0.08) 04/29/18 21:01 EKG additional interpertation: ECG: sinus rhythm, RBBB (old), no AV block or pauses, no ischemia Assessment & Plan Assessment: 87yo M with history of CVA, 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 He was found to be bradycardic and hypotensive and symptoms improved with administration of atropine. Plan: 1. Symptomatic bradycardia: Appears sinus without AV block or pauses, consistent with sick sinus syndrome. I believe this is likely the cause of his recurrent episodes of near syncope and slurred speech. - Cardiology consulted in ED - Initial troponin/ecg without ischemia - Hold bisoprolol - Interrogate loop recorder (this was just implanted 04/21) - Will likely need pacemaker - TTE from 12/2017 with normal LVEF and valves 2. JACQUELINE: Cr 1.7 up from 1.0 baseline. Suspect hypoperfusion due to above rhythm. - IVF and recheck in AM 3. Hyponatremia: Mildly hypovolemic. Management as above, recheck in AM. 4. Episodic near syncope: Highly suspect related to above. - PT/OT 5. HTN: Continue home meds. 6. Vascular parkinsonism: Followed by neurology. Has 12 hour care at [facility]. 7. H/o CVA: On plavix. 8. Seizure disorder: On keppra. VTE ppx: SCDs Diet: NPO at midnight Code: DNR/DNI Dispo: Admit as inpatient, will likely require >2 midnight given strong possibility of requiring pacemaker and close cardiac monitoring.
[2018-04-29] MEDS ORDERED: TEARS/DEXTRAN 70/HYPROMELLOSE 15 ML OPHT.BTL EACHEYE PRN (23:25)
[2018-04-29] MEDS ORDERED: NS 1,000 ML IV SCH (23:45)
[2018-04-30] MEDS: ATORVASTATIN CALCIUM 40 MG TAB PO SCH ×2 (00:16→21:01)
[2018-04-30] MEDS: amLODIPine BESYLATE 5 MG TAB PO SCH ×2 (00:16→21:01)
[2018-04-30] MEDS: TRIAMTERENE/HCTZ 37.5/25 1 EACH TAB PO SCH ×2 (00:16→21:01)
[2018-04-30 04:37] LABS: INR 1.08 (0.83-1.16); PROTIME(PATIENT) 14.2 SEC (12.0-15.0)
[2018-04-30] MEDS ORDERED: CLOPIDOGREL BISULFATE 75 MG TAB PO SCH (09:00)
[2018-04-30] MEDS ORDERED: LIDOCAINE 1% 300 MG/30 ML SDV ONE (09:40)
[2018-04-30] MEDS ORDERED: fentaNYL 100 MCG/2 ML INJ ONE (09:40)
[2018-04-30] MEDS ORDERED: IOPAMIDOL (ISOVUE-300) 50 ML VIAL ONE (09:40)
[2018-04-30] MEDS ORDERED: LIDO/EPI 1% **for epidural** 30 ML SDV ONE (09:40)
[2018-04-30] MEDS ORDERED: MIDAZOLAM 2 MG/2 ML VIAL ONE (09:40)
[2018-04-30] MEDS ORDERED: BUPIVACAINE 0.5% 30 ML SDV ONE (09:40)
[2018-04-30] MEDS ORDERED: BACITRACIN 50,000 UNIT in SODIUM CL IRRIG SOLUTION 1,000 ML IRR ONE (10:30)
[2018-04-30] MEDS ORDERED: ceFAZolin 2 GM/DEXTROSE 100 ML IV ONE (10:30)
--- NOTE | 2018-04-30 10:32 | PDPROPOC ---
Sedation Plan of Care Sedation Plan of Care: vital signs stable, mental status noted, patient educated of risks, benefits, alternatives, patient can tolerate sedation ASA Classification: ASA 3 Planned drugs: fentanyl, midazolam Mallampati Score: Class 2 Mallampati Reference Image: Patient passed 3-3-2 rule?: Yes
--- NOTE | 2018-04-30 10:41 | PDMN ---
Medical Necessity Medical necessity: Pt meets IP criteria as of 04/29 per MD and KARMEN HOLLAND-April ( Cardiology [facility]); est los > 2 mn for ongoing tx and management of symptomatic bradycardia with episodes of slurred speech and near syncope as well as JACQUELINE and hyponatremia; requiring cardiology consultation, close cardiac monitoring, serial labs, likely needs pacemaker, IVF, and management of other conditions including HTN< vascular parkinsonism, CVA, and seizure disorder.
[2018-04-30] MEDS: EPLERENONE 25 MG TAB PO SCH (12:55)
[2018-04-30] MEDS: levETIRAcetam 250 MG TAB PO SCH ×2 (12:55→21:00)
[2018-04-30] MEDS: DOCUSATE SODIUM 100 MG CAP PO SCH (12:55)
[2018-04-30] MEDS: FINASTERIDE 5 MG TAB PO SCH (12:56)
[2018-04-30] MEDS: LISINOPRIL 40 MG TAB PO SCH (12:56)
[2018-04-30] MEDS: Mirabegron [Myrbetriq] 50 MG PO SCH (13:05)
[2018-04-30] MEDS ORDERED: PROTOCOL MAGNESIUM 1 DOSE IV PRN (14:45)
[2018-04-30] MEDS ORDERED: PROTOCOL POTASSIUM 1 DOSE MISC PRN (14:45)
--- NOTE | 2018-04-30 14:49 | HOSPPROG ---
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 He was found to be bradycardic and hypotensive and symptoms improved with administration of atropine. 1. Symptomatic bradycardia: Appears sinus without AV block or pauses, consistent with sick sinus syndrome. I believe this is likely the cause of his recurrent episodes of near syncope and slurred speech. - Cardiology placed PPM today - TTE from 12/2017 with normal LVEF and valves 2. JACQUELINE: Cr 1.7 up from 1.0 baseline. Suspect hypoperfusion due to above rhythm. - improving. Trial off IVF 3. Hyponatremia: Mildly hypovolemic. resolved 4. Episodic near syncope: Highly suspect related to above. - PT/OT 5. HTN: Continue home meds. 6. Vascular parkinsonism: Followed by neurology. Has 12 hour care at [facility]. 7. H/o CVA: On plavix. 8. Seizure disorder: On keppra. inpatient SCD's Subjective: had PPM today. Doing well post operatively Objective: Vital Signs Temp Pulse Resp BP Pulse Ox 36.3 C 65 19 145/77 H 92 04/30/18 13:00 04/30/18 13:00 04/30/18 13:00 04/30/18 13:00 04/30/18 13:00 Laboratory Results 04/30/18 03:45 04/29/18 04/30/18 05/01/18 05:59 05:59 05:59 Intake Total 870 750 Output Total 700 950 Balance 170 -200 PT 14.2 SEC (12.0-15.0) 04/30/18 03:45 INR 1.08 (0.83-1.16) 04/30/18 03:45 - Physical Exam Constitutional: no apparent distress Eyes: PERRL, EOMI Ears, Nose, Mouth, Throat: moist mucous membranes, hearing normal Cardiovascular: regular rate and rhythym, No edema Respiratory: no respiratory distress, no rales or rhonchi, clear to auscultation Gastrointestinal: normoactive bowel sounds, soft, non-tender abdomen Skin: warm Neurologic: AAOx3 Psychiatric: interacting appropriately, not anxious, not encephalopathic Lymph, Heme, Immunologic: No petechiae ICD10 Worksheet Patient Problems: Problems Problem Status Onset Acute kidney injury Acute Bradycardia Acute Altered mental status Acute Back pain Acute Multiple falls Acute TIA (transient ischemic attack) Acute
--- NOTE | 2018-04-30 14:54 | ASMTCMCOM ---
CM Note CM Note Notes: Pt is a 87 yo M, DNR. Presents with bradycardia. Pt has history of CVA, recurrent TIAs, vascular parkinsonism, and seizure disorder. Pt got pacemaker today. Pt lives at [facility], at home on hospice, wants to be with her. Pt will likely discharge tomorrow, and will follow-up with cardiac rehab. CM available if needs may arise. Plan: Independent Date Signed: 04/30/2018 02:54 PM Electronically Signed By:JOAN Stafford
[2018-04-30] MEDS ORDERED: POTASSIUM CL 10 MEQ TAB PO ONE (20:14)
[2018-05-01 08:17] VITALS: BP 140/85
[2018-05-01] MEDS: LISINOPRIL 40 MG TAB PO SCH (10:08)
[2018-05-01] MEDS: levETIRAcetam 250 MG TAB PO SCH (10:08)
[2018-05-01] MEDS: EPLERENONE 25 MG TAB PO SCH (10:08)
[2018-05-01] MEDS: FINASTERIDE 5 MG TAB PO SCH (10:08)
[2018-05-01] MEDS: DOCUSATE SODIUM 100 MG CAP PO SCH (10:09)
[2018-05-01] MEDS: Mirabegron [Myrbetriq] 50 MG PO SCH (10:10)
[2018-05-01] MEDS ORDERED: POTASSIUM CL 10 MEQ TAB PO ONE (11:31)
--- NOTE | 2018-05-01 11:45 | ASMTCMCOM ---
CM Note CM Note Notes: PT notified CM that pt needs SNF at discharge. CM Spoke with pt and family and they are refusing SNF. Pt reports he lives at the [facility] and has access to staffing as needed for assistance. Pt is open with [facility]. CM discussed with MD and RN who are putting in orders for Homecare. CM to submit discharge ppwk. Family to transport. Pt has ample family support at this time. Family reports no concerns with discharge plan at this time. Date Signed: 05/01/2018 11:44 AM Electronically Signed By:JOAN Stafford
--- NOTE | 2018-05-01 12:11 | PDIAF ---
- Diagnosis Diagnosis: SICK SINUS SYNDROME Code Status: Full Code - Medication Management Discharge Medications: electronically signed and located in the Home Medication List. - Orders Services needed: Home Care, Certified [employer] Apprentice, Physical Therapy, Occupational Therapy Home Care Face to Face: I certify that this patient was under my care and that I had the required [id number] encounter meeting the encounter requirements on the discharge day. My findings support the fact that the patient is homebound as defined in Home Care Face to Face Continued: CMS Chapter 7 Medicare Benefits Manual 30.1.1 , The condition of the patient is such that there exists a normal inability to leave home and consequently, leaving home would require a considerable and taxing effort. Diet Recommendation: sodium restricted, cardiac -low fat low salt Diet Texture: Regular Texture Diet Additional Instructions: STANDARD PACEMAKER PRECAUTIONS... PATIENT TO CALL [facility] AFTER 9 TOMORROW AM ([phone]) FOR AN APPOINTMENT FOR THE PACER/WOUND CLINIC TO CHECK THE PACER INCISION AND REMOVE THE MARGARETTE ON WEDNESDAY OF THIS WEEK 2018. - Follow Up Care Current Providers and Referrals: Gutierrez Hill MD [Medical Doctor] - Patient,NotPresent [Unknown] - As per Instructions
--- NOTE | 2018-05-01 12:14 | HOSPPROG ---
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 He was found to be bradycardic and hypotensive and symptoms improved with administration of atropine. 1. Symptomatic bradycardia: Appears sinus without AV block or pauses, consistent with sick sinus syndrome. I believe this is likely the cause of his recurrent episodes of near syncope and slurred speech. - Cardiology placed PPM ON 04/30 - TTE from 12/2017 with normal LVEF and valves 2. JACQUELINE: Cr 1.7 was up from 1.0 baseline. Suspect hypoperfusion due to above rhythm. - resolved Cr today is 1.0 3. Hyponatremia: Mildly hypovolemic. resolved 4. Episodic near syncope: Highly suspect related to above. - PT/OT 5. HTN: Continue home meds. 6. Vascular parkinsonism: Followed by neurology. Has 12 hour care at [facility]. 7. H/o CVA: On plavix. 8. Seizure disorder: On keppra. Plan: CXR reviewed and appropriate will discharge per Cards today No additional changes F/U with Cards and PCP per discharge instructions HHC is being set up per the Subjective: feels good. no cp or sob. Objective: Vital Signs Temp Pulse Resp BP Pulse Ox 37.1 C 76 18 140/85 H 85 L 05/01/18 08:00 05/01/18 08:00 05/01/18 08:00 05/01/18 08:00 05/01/18 08:55 Laboratory Results 05/01/18 03:15 04/30/18 05/01/18 05/02/18 05:59 05:59 05:59 Intake Total 870 1610 Output Total 700 2600 Balance 170 -990 PT 14.2 SEC (12.0-15.0) 04/30/18 03:45 INR 1.08 (0.83-1.16) 04/30/18 03:45 - Physical Exam Constitutional: no apparent distress Eyes: PERRL Ears, Nose, Mouth, Throat: moist mucous membranes, hearing normal Cardiovascular: regular rate and rhythym, No edema Respiratory: no respiratory distress, no rales or rhonchi, clear to auscultation Gastrointestinal: normoactive bowel sounds Skin: warm Neurologic: AAOx3 Psychiatric: interacting appropriately, not anxious, not encephalopathic Lymph, Heme, Immunologic: No petechiae ICD10 Worksheet Patient Problems: Problems Problem Status Onset Acute kidney injury Acute Bradycardia Acute Altered mental status Acute Back pain Acute Multiple falls Acute TIA (transient ischemic attack) Acute
--- NOTE | 2018-05-01 12:44 | ASDISCHSUM ---
Discharge Information Plan Status:Home with Home Health Medically Cleared to Leave: Discharge Date: D/C Disposition:Home Health Service [facility] D/C Disposition:Home, Routine, Self-Care Projected Discharge Date:05/01/2018 11:00 AM Transportation at D/C:Family Discharge Delay Reason: Follow-Up Date:05/01/2018 11:00 AM Discharge Slot: Final Diagnosis: Placement Information Referral Type:*Residential/SNF Referral ID:[id number] Provider Name: Address 1: Phone Number: Address 2: Fax Number: City: Selection Factors: State: Referral Type:*Home Health Care Services Referral ID:[id number] Provider Name:[facility] Address [address] Address 2: City:[place] Selection Factors: State:[place] Patient Contact Information Contact Name:NATHAN Relationship:Daughter Address: City: Alternate Phone: State/Zip Code: Email: Financial Information Financial Class:Medicare Primary Plan Desc:MEDICARE OUTPATIENT Primary Plan Number:[id number] Secondary Plan Desc:[employer]ARP/MDR SUPPLEMENT Secondary Plan Number:[id number] Assessment Information [facility] CM Progress Note CM Note CM Note Notes: Pt is a 87 yo M, DNR. Presents with bradycardia. Pt has history of CVA, recurrent TIAs, vascular parkinsonism, and seizure disorder. Pt got pacemaker today. Pt lives at [facility], at home on hospice, wants to be with her. Pt will likely discharge tomorrow, and will follow-up with cardiac rehab. CM available if needs may arise. Plan: Independent Date Signed: 04/30/2018 02:54 PM Electronically Signed By:JOAN Stafford [facility] CM Progress Note CM Note CM Note Notes: PT notified CM that pt needs SNF at discharge. CM Spoke with pt and family and they are refusing SNF. Pt reports he lives at the [facility] and has access to staffing as needed for assistance. Pt is open with [facility] and [facility]. CM discussed with MD and RN who are putting in orders for Homecare. CM to submit discharge ppwk. Family to transport. Pt has ample family support at this time. Family reports no concerns with discharge plan at this time. Date Signed: 05/01/2018 11:44 AM Electronically Signed By:JOAN Stafford Case Management Discharge Plan Note Case Management Discharge Discharge Order Complete? Answers: Yes Patient to Obtain Answers: via Family Medications Transportation Arranged Answers: Family/Friends Faxed Final Orders Answers: Yes Agency/Facility Transfer Answers: Yes Report Printed & Faxed to Receiving Agency Family Notified Answers: Yes Discharge Comments Notes: Pt is being discharged back to the [facility] with [facility]. Pt also will continue un-skilled care through [facility]. Family agreeable with discharge plan, pt and family refused SNF. No other concerns noted. Family to transport. Date Signed: 05/01/2018 12:43 PM Electronically Signed By:JOAN Stafford Intervention Information
--- NOTE | 2018-05-01 21:33 | GDS ---
[f rep st] DISCHARGE SUMMARY ADMIT DIAGNOSIS: 1. Hypotension and severe bradycardia with associated dysarthria and confusion. 2. Hypertension. 3. Dyslipidemia. DISCHARGE DIAGNOSIS: 1. Symptomatic bradycardia with documented hypotension, dysarthria, and altered mental status, resol blaise with atropine. 2. Dual-chamber pacemaker insertion. 3. Removal of loop recorder. 4. Hypertension. 5. Dyslipidemia. HISTORY OF PRESENT ILLNESS: Please see the recently dictated H and P. briefly, the patient has had spells of what had been previously thought to be TIAs for several years. He has had 4 or 5 of these events over the past 3 years. He ultimately underwent placement of a loop recorder to rule out inter mittent atrial fibrillation as a cause for his clinical symptoms. On 04/21/2018, under the care of Marli Reid. Of note, is that the patient's is currently in hospice and seems to be very near t he end of her life which has been upsetting to the patient. He was with his caregiver and suddenly was noted to have a change in altered level of consciousness with difficulty and slurred speech. EMS was called and the patient was found to have a heart rate in the 40s with severe hypotension, which resolved with the administration of intravenous atropine. HOSPITAL COURSE: The patient was admitted. His loop recorder was interrogated, but it was set to de tect pauses of greater than 3 seconds and heart rates of less than 30. There was no evidence of such an event and attempt at triggering the device failed to initiate a trigger. Because of the patient' s clinical symptoms, we felt it would be most prudent to proceed with permanent pacemaker insertion a nd because of the intracardiac electrograms and telemetry capability of the [employer] device, we deci ded to proceed with placement of an MRI-conditional pacemaker on 04/30/2018. That procedure was comp leted successfully and on the morning following the procedure, the patient's EKG is stable. It revea ls an atrial paced and ventricular sensed rhythm with occasional PVCs. The chest x-ray is negative x 2 for pneumothorax with stable positioning of the device and leads and the device thresholds are all stable and appropriate for this device. On the morning of his discharge from the hospital, he is med ically stable and ready for discharge to home. His vital signs are stable. DISCHARGE MEDICATIONS: Are to include amlodipine 5 mg p.o. at bedtime, atorvastatin 40 mg p.o. at be dtime, Plavix 75 mg daily which will be resumed tomorrow, docusate sodium 200 mg p.o. daily, eplereno ne 25 mg p.o. daily, finasteride 5 mg p.o. daily, levetiracetam 250 mg p.o. twice daily, lisinopril 4 0 mg p.o. daily, mirabegron 50 mg p.o. daily, dextran 70 hypromellose natural balance tears 1 drop to each eye 3 times a day, triamterene hydrochlorothiazide 37.5/25 mg 1 tablet p.o. at bedtime, and [place] eta 2.5 mg p.o. daily, vitamin D3 4000 international units p.o. daily, herbal supplement 1 p.o. daily , and omega-3 fatty acid 1000 mg p.o. daily. His activity is to be limited by groin precautions. He is to return promptly to the emergency depart ment should he experience chest pain, shortness of breath, altered level of consciousness, or other c linical symptoms of concern. The patient is to follow up in our wound care clinic on Wednesday for danish tony of his darryl. I have asked that he avoid getting his left wrist or elbow above the level of hi s left shoulder and to try to use the sling that we provided at night. I specifically would say that this patient has been previously thought to have TIAs in the past and that may in fact have been the case; however, this episode which was very similar to the prior episodes appears to have been relat ed to documented severe bradycardia and therefore it may be reasonable to consider whether or not his Plavix should be continued fdc. I will leave that decision up to his primary care physician armaan Reid who is his primary care malt house supervisor. /[id number]/MODL
--- NOTE | 2018-05-01 21:37 | CPIP ---
[f rep st] INVASIVE CARDIAC PROCEDURE DATE OF PROCEDURE: 04/30/2018 PROCEDURES: 1. Dual-chamber pacemaker insertion. The device is a [place] [employer]ron[employer] Edora 8 DR-T, serial number [id number] . The atrial lead is a Solia S 45, serial number [id number]. The ventricular lead is a Solia S 53, se rial number [id number]. 2. Explant of loop recorder placed 04/21/2018. INDICATIONS/APPROPRIATE USE CRITERIA: The patient developed another one of his spells of slurred spe ech and altered level of consciousness and was evaluated by paramedics and found to have a heart rate between 35 and 42 with a systolic blood pressure of 60 mmHg over palpable. The patient was given at ropine in the field as part of an ACLS protocol with subsequent improvement in his heart rate and blo od pressure and immediate resolution of his symptoms, consistent with symptomatic sick sinus syndrome with near syncope and definitely with altered level of consciousness and slurred speech. These symp toms correlate with the patient's prior episodes which have been thought to be secondary to a TIA. B ecause the pacemaker device will have intracardiac electrograms and telemetry capability, it was felt to be prudent to remove the loop recorder placed on 04/21/2018, by Dr. Reid as part of this proc edure. PROCEDURE IN DETAIL: After informed consent was obtained and n.p.o. status was confirmed, the region of the left subclavicular fossa was cleaned, prepped, and draped in sterile fashion. Approximately 15 cc of 1% lidocaine was utilized for local anesthesia. A #10 blade was used to sharply incise the skin. Electrocautery and local pressure were used for hemostasis. Sharp and blunt dissection were u sed to perform a pacer pocket overlying the pectoralis major fascia. When the pocket was being made, the loop recorder was identified from the pocket and then was removed with forceps. An antibiotic-s oaked gauze was placed into the pocket. The patient was placed in the Trendelenburg position, and an 18-gauge Cook needle was used to gain access to the left subclavian vein. A retained wire technique was utilized to place a 7-Lao peel-away sheath. The ventricular lead was manipulated with care i nto the right ventricular apex and screwed into place. Please note that the ventricular lead serial number is [id number] and is a Solia S 53. The procedure was repeated with the retained wire and peel-a way sheath for the right atrial lead which is a Solia S 45, serial number [id number]. After good posit ion was noted, excellent thresholds were identified. The leads were sutured in place with 0 Ethibond . The threshold in the ventricle was 0.7 V at 0.4 msec with an R-wave amplitude of 13.9. The thresh old in the atrium was 0.5 at 0.4 msec with a 2.1 mV. P-wave lead impedance was 433 ohms in the atriu m and 656 in the V. Again, the leads were sutured in place with 0 Ethibond. The antibiotic-soaked gauze was removed from the pocket, and excellent hemostasis was established. T he pocket was flushed copiously with bacitracin-containing solution, and good hemostasis was noted. The pacemaker was brought to the table. The atrial lead serial number was checked and placed in the upper pole lead housing and the setscrew firmly applied. The procedure was repeated for the ventricu lar lead in the lower pole lead housing, and the lead and the device were sutured into place with 0 s ilk to the pectoralis major fascia. The skin was then closed with 2-0 and 3-0 Vicryl with vertical a nd horizontal mattress sutures which were interrupted, and the skin was closed with interrupted stapl es. Sterile dressing was applied. The patient returned to the recovery unit in good and stable cond ition, where a stat postoperative chest x-ray and EKG were obtained, demonstrating no evidence of pne umothorax. The patient tolerated the procedure well without immediate complication. FINAL IMPRESSION: Successful dual-chamber pacemaker insertion with removal of loop recorder for sarah cation of symptomatic and severe bradycardia. The patient should be a candidate for early discharge. /[id number]/MODL
[2018-05-02] MEDS ORDERED: CLOPIDOGREL BISULFATE 75 MG TAB PO SCH (09:00)
--- NOTE | 2018-05-03 07:57 | CPEKG ---
Test Reason : OPEN Blood Pressure : / mmHG Vent. Rate : 067 BPM Atrial Rate : 066 BPM P-R Int : 235 ms QRS Dur : 161 ms QT Int : 459 ms P-R-T Axes : 075 -85 067 degrees QTc Int : 485 ms Sinus rhythm Prolonged AR interval Right bundle branch block Inferior infarct, old Confirmed by Ben Ge ([id number]) on 05/03/2018 7:57:06 AM Referred By: Sedrick Damon Confirmed By:Ben Ge
--- NOTE | 2018-05-04 16:24 | PQFORM ---
PHYSICIAN QUERY FORM Needs Your Response This query form is being sent to you to assure this patient record is coded properly. Please respond to the question below: SWIMMING COACH OR INSTRUCTOR QUESTION: Dear Dr. Hill, In reviewing this patients medical record, it is noted patient held the diagnosis of 'Acute kidney failure.' Patient was noted in ER to have increased BUN of 27mg, Creatinine of 1.7 and noted to be "consistent with acute kidney injury." H&P notes patient diagnosis of "acute kidney injury, Cr 1.7 up from 1.0 baseline." In the Medical necessity note patient was admitted for the management of "symptomatic bradycardia with episodes of JACQUELINE." In the Hospitalist Progress notes dated 04/30-05/01 patient held the diagnosis of JACQUELINE. Labs show on 04/29 Creatinine level of 1.7 and BUN level of 27, on 04/30 BUN level was 26. After study, should the diagnosis of acute kidney injury be included in the Discharge Summary? _yes___Yes No Other more appropriate diagnosis (please specify) Unable to determine Thank you ADELAIDA Flower HIM/Coding Dept. [phone] INSTRUCTIONS FOR RESPONSE: Answer question by clicking on the "Edit Document" button. Move cursor to area below the stars. When complete, hit "Save." Click on the "Sign" button, then click "Sign" again. Type in your PIN and hit "Enter." MTDD
== END 2018-05-01 12:54 | disposition home health service (06) | DRG 243 ==
LOC: EDUNIT# → OBSVTOIN 22:00 → F2W 22:21
PROVIDERS: ADMIT Internal Medicine; ATTEND Internal Medicine
DX: I49.5 Sick sinus syndrome (principal); N17.9 Acute kidney failure, unspecified; I45.10 Unspecified right bundle-branch block; E86.9 Volume depletion, unspecified; I10 Essential (primary) hypertension; E78.5 Hyperlipidemia, unspecified; I95.9 Hypotension, unspecified; R47.1 Dysarthria and anarthria; R41.82 Altered mental status, unspecified; N40.0 Benign prostatic hyperplasia without lower urinary tract symptoms; G21.4 Vascular parkinsonism; E11.9 Type 2 diabetes mellitus without complications; G40.909 Epilepsy, unspecified, not intractable, without status epilepticus; Z86.73 Personal history of transient ischemic attack (TIA), and cerebral infarction without residual deficits; Z66 Do not resuscitate
CPT/HCPCS: 84484-ER; 97161-GP; 97165-GO; 97535-GO; C1785; C1898; J0690; J2250; J3010; Q9967

== ENCOUNTER → 2018-06-21 | Outpatient (CLI) | payer OTHER, MEDICARE | LOC: FIMAGING 16:52 | PROVIDERS: ATTEND Orthopaedic Surgery | DX: M17.12 Unilateral primary osteoarthritis, left knee (principal); M71.22 Synovial cyst of popliteal space [Baker], left knee ==